=== PATIENT | female | born 1935 | race Caucasian/White ===

== ENCOUNTER 2018-05-11 00:47 | Inpatient (IN) | payer OTHER, MEDICARE ==
[~2018-05-11] VITALS: Ht 175.3 cm; Wt 114.9 kg
[~2018-05-11 00:47] MED LIST: AMLODIPINE BESYL5 M1 PO; ASPIRIN81 M4 PO; AUGMENTIN 500-1 EACH PO; CELEBREX200 MG PO; GLIPIZIDE ER5 M1 PO; GLIPIZIDE5 M2 PO; LASIX20 M1 PO; LISINOPRIL-HCT1 EAC2 PO; METFORMIN1000 MG PO; PIOGLITAZONE HC30 M1 PO; SIMVASTATIN20 MG PO; ZESTORETIC 10-1 EACH PO
--- NOTE | 2018-05-11 10:24 | Admission Core Measures ---
Acute Coronary Syndrome (CM) ACS Core Measures Acute Coronary Syndrome Diagnosis No Congestive Heart Failure (NEW) CHF Core Measures Congestive Heart Failure Diagnosis No Cerebrovascular Accident CVA Core Measures CVA/TIA Diagnosis No Venous Thromboembolism VTE Core Ana (View Protocol) VTE Risk Factors Surgery No Mechanical VTE Prophylaxis d/t N/A MechProphylax Ordered No VTE Pharm Prophylaxis d/t NA PharmProphylax ordered Problem List As ranked by this Provider includes Assessment & Plan 1. Unilateral primary osteoarthritis, right knee HOME MEDS Home Med List Amlodipine Besylate 5 MG TABLET 1 TAB PO DAILY BP (Reported) Aspirin (Aspirin*) 81 MG TAB.CHEW 1 TAB PO DAILY HEART HEALTH (Reported) Augmentin (Augmentin 500-125 Tablet) 1 EACH TABLET 1 TAB PO BID FINGER LACERATION Furosemide (Lasix) 20 MG TABLET 1 TAB PO DAILY BP (Reported) Glipizide (Glipizide ER) 5 MG TAB.ER.24 1 TAB PO DAILY DIABETES (Reported) Glipizide 5 MG TABLET 1 TAB PO BID DIABETES (Reported) Lisinopril/Hydrochlorothiazide (Lisinopril-Hctz 10-12.5 MG Tab) 1 EACH TABLET 1 TAB PO DAILY HEART (Reported) Lisinopril/Hydrochlorothiazide (Zestoretic 10-12.5 MG Tablet) 10 MG-12.5 MG TABLET 1 TAB PO DAILY BP (Reported) METFORMIN HCL (Metformin) 1,000 MG TABLET 1 TAB PO BID DIABETES (Reported) PIOGLITAZONE HCL (Pioglitazone HCl) 30 MG TABLET 1 LAL PO DAILY DIABETES ( Reported) Simvastatin (Zocor) 20 MG TAB 1 TAB PO QPM CHOLESTEROL (Reported)
--- NOTE | 2018-05-11 10:29 | Operative Report ---
Operative/Inv Procedure Report Surgery Date: 05/11/18 Name of Procedure: Right total knee arthroplasty Pre-Operative Diagnosis: Right knee primary osteoarthritis 2. Valgus deformity right knee Post-Operative Diagnosis: Same Estimated Blood Loss: 50ml to 100ml Surgeon/Shipping Support Clerk: Carlos HENAO,Vianey Leblanc PA Anesthesia: block Implants: [place] triathlon total knee system-size 4 femur, size 4 tibia, 11 mm cruciate retaining polyethylene, 31 patella Drains: None Specimens: Femoral, tibial, patellar bone, Microbiology: Urine Tourniquet: 74 minutes Complications: None Condition: Stable Operative Indication: Patient is an 82-year-old woman with a long history of gradually worsening right knee symptoms of osteoarthritis. She developed mechanical symptoms and increasing pain as well as deformity of the right knee. She had a significant valgus deformity of the knee and developed a flexion contracture. Due to these problems, she was treated conservatively initially but failed conservative treatment. She wished to proceed with total knee arthroplasty. Risks benefits and expectations of the procedure were discussed which included but were not limited to persistent knee pain, need for subsequent surgery, infection, DVT, injury of blood vessel or nerve and anesthesia risks. Patient is a higher risk of developing a postoperative peroneal nerve palsy due to her flexion contracture which was approximately 20 and her valgus deformity which was also approximately 20. She understood this and her family understood this. They wish to proceed with total knee arthroplasty Operative/Procedure Note Note: Patient was brought to the operating room and transferred to the room table. Once under appropriate anesthesia the right lower extremity was prepped and draped in standard fashion. Preoperative IV antibiotics were given prophylactically. Standard anterior incision was made for anticipated medial parapatellar approach to the knee. The tourniquet had been inflated to 300 ohms of pressure. Incision was taken down sharply to the underlying retinaculum. A medial retinacular approach with minimal extension of the quadricep tendon was used to enter the knee joint. Large osteophytes in all 3 compartments. These were excised to restore anatomy. Minimal dissection around the medial corner of the tibia was done to avoid and ligament imbalance due to her valgus deformity. Retractors are placed medial laterally remnants of the degenerative medial and lateral meniscal tissues were excised. Remnants of the ACL was excised. I then used a drill to enter the intramedullary canal for the intramedullary guide for the distal femoral cut. Cut was made at a 5 valgus angle. The femur was then sized to a size 4. Size 4 cutting block was pinned in place and the cuts were made while protecting soft tissues. I then turned my attention to the tibia. The used the external tibial alignment guide and pinned the cutting block in position for a neutral cut from medial to lateral and reproducing patient's posterior slope based on preoperative templating and intraoperative findings. Cut was made. The PCL had been slightly recessed and protected with a PCL retractor. Tibia was then sized to a size 4. A trial 4 tibia 4 femur and a 9 mm insert were applied and the knee was taken out to full extension. Slightly more lax on the lateral side during this trial. This would be balanced later on the case. I then measured and removed the appropriate thickness of the patella and re-stored the thickness of the patella with a 31 patella. A 3 lug holes were drilled as medially as possible to facilitate patellofemoral tracking. I then marked my rotation of the tibia and drilled the 2 lug holes of the femur. All instrument tissue was removed from the knee. I then finished preparation of tibia with the appropriate tibial punch. After balancing I was satisfied with the 11 mm insert which would be confirmed later on the case as well. Also patellofemoral tracking will be determined after the tourniquet was deflated. All its rotation was removed to the knee. Copious irrigation of the knee followed. I used the anterior chamfer bone to plug the distal femur to minimize postoperative hemarthrosis and swelling. Cement was being mixed on the back table. Once it was ready was applied to the dry clean bony surfaces of the tibia. The size 4 tibia was impacted in place and excess cement was removed with curettes. Cement was applied to dry clean bony surfaces of distal femur. And excess cement was removed with curettes. Polyethylene was inserted and the was taken out to full extension. Cement was applied to the dry clean bony surfaces of the patella. Size 31 patella was impacted in place and excess cement was removed with a knife. Once the cement hardened to the knee through range of motion. Excess cement was removed with osteotome. I trialed an 11 mm polyethylene. I was satisfied with the stability with this insert full extension. Good mid flexion stability and full flexion to gravity. I then removed the trial polyethylene copiously irrigated tibial tray. Shayan was no fragments of bone or cement or soft tissues within the tibial tray and then I impacted the definitive size 11 mm cruciate retaining polyethylene into place and the locking mechanism was confirmed. Irrigation followed. Tourniquet was deflated at 74 minutes. Hemostasis was obtained. I then copiously irrigated every level after every level of closure. The retinacular incision and extension to the quadricep was closed with interrupted #1 Vicryl sutures. Subcu tissues closed in 2 layers due to the depth of the wound with 2-0 Vicryl and skin was closed with a running 3-0 Vicryl suture with the knee in flexion. Proper dressings were applied and patient was awakened and taken to recovery room in good condition. No intraoperative complications. Blood loss was 100 cc Discharge Disposition: PACU
--- NOTE | 2018-05-11 10:31 | Patient Discharge Instructions ---
Discharge Instructions General Discharge Information You were seen/treated for: RIGHT KNEE OSTEOARTHRITIS You had these procedures: RIGHT TOTAL KNEE REPLACEMENT Watch for these problems: FEVER OVER 100.4 REDNESS AND SWELLING AROUND INCISION DRAINAGE FROM WOUND UNABLE TO BEAR WEIGHT ON RIGHT LEG No bath, but you may shower: Yes Other wound care: DAILY DRY DRESSING CHANGE KEEP INCISION CLEAN AND DRY Special Instructions: YOU WILL BE TAKING A NEW MEDICATION FOR ATRIAL FIBRILLATION CALLED ELIQUIS. THIS IS TO PREVENT BLOOD CLOTS FROM FORMING. PLEASE FOLLOW UP WITH YOUR PCP AND RECEIVING ROOM CLERK WITHIN 1-2 WEEKS. Diet Recommended Diet: Diabetic Activity Activity Limited to: Weight bear as tolerated (WITH ROLLING WALKER) Acute Coronary Syndrome Inclusion Criteria At DC or during hospital stay patient has or had the following: ACS DIAGNOSIS No Discharge Core Measures Meds if any: Prescribed or Continued at Discharge Meds if any: NOT Prescribed or Continued at Discharge Congestive Heart Failure Inclusion Criteria At DC or during hospital stay patient has or had the following: CHF DIAGNOSIS No Discharge Core Measures Meds if any: Prescribed or Continued at Discharge Meds if any: NOT Prescribed or Continued at Discharge Cerebrovascular accident Inclusion Criteria At DC or during hospital stay patient has or had the following: CVA/TIA Diagnosis No Discharge Core Measures Meds if any: Prescribed or Continued at Discharge Meds if any: NOT Prescribed or Continued at Discharge Venous thromboembolism Inclusion Criteria VTE Diagnosis No VTE Type NONE VTE Confirmed by (Test) NONE Discharge Core Measures - Per Current guidelines, there needs to be overlap - treatment for the first 5 days of Warfarin therapy. - If discharged on Warfarin prior to 5 days of - overlap therapy, the patient will need to be - assessed for post discharge needs including - *Post discharge parental anticoagulation - *Warfarin and/or parental anticoagulation education - *Follow up date to check INR post discharge At least 5 days overlap therapy as Inpatient No Meds if any: Prescribed or Continued at Discharge Note: Overlap Therapy is Warfarin and Anticoagulant Meds if any: NOT Prescribed or Continued at Discharge
--- NOTE | 2018-05-11 10:36 | Surgical Discharge Summary ---
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 Wallisian Review of Systems: PER [facility] Hospital Course Course Attending Physician: Carlos HENAO,[facility] Primary Care Physician: Tasha HENAO,[facility] Course: PT PRESENTED FOR ELECTIVE RIGHT TKA ON 05/11 WITH SPINAL, PT VOMITED MULTIPLE TIMES INTRA-OP AND IMMEDIATELY POST-OPERATIVELY. SHE WAS GIVEN INSTRUCTIONS TO FOLLOW-UP WITH DR GONZALEZ IN 2 WEEKS AND TO CALL SOONER WITH ANY QUESTIONS OR CONCERNS Allergies: Coded Allergies: lisinopril (Intermediate, TONGUE SWELLS 01/31/16) Significant Procedures: RIGHT TOTAL KNEE ARTHROPLASTY Disposition Summary Disposition Principal Diagnosis: RIGHT KNEE OA Additional Diagnosis: SP R TKA Discharge Disposition: home health services Discharge Instructions General Discharge Information Code Status: Full Code Patient's Diet: DIABETIC Patient's Activity: WBAT with rolling walker Follow-Up Instructions/Appts: to see Dr. Gonzalez in 2 weeks. Call sooner with any questions or concerns Medications at Discharge Discharge Medications: Continue taking these medications: METFORMIN HCL (Metformin) 1,000 MG TABLET 1 Tablet ORAL TWICE DAILY Qty = 180 Glipizide (Glipizide ER) 5 MG TAB.ER.24 1 Tablet ORAL DAILY Comments: NOT GIVEN Pioglitazone HCl (Pioglitazone HCl) 30 MG TABLET 1 Tablet ORAL DAILY Comments: NOT GIVEN Simvastatin (Zocor) 20 MG TAB 1 Tablet ORAL Every night Aspirin (Aspirin*) 81 MG TAB.CHEW 1 Tablet ORAL DAILY Comments: Last Taken: 05/19/18 Time: 8:00 AM Furosemide (Lasix) 20 MG TABLET 1 Tablet ORAL DAILY Comments: Last Taken: 05/19/18 Time: 8:00 AM Glipizide (Glipizide) 5 MG TABLET 1 Tablet ORAL TWICE DAILY Qty = 60 Comments: NOT GIVEN Start taking the following new medications: Apixaban (Eliquis) 5 MG TABLET 1 Tablet ORAL TWICE DAILY Qty = 60 No Refills Comments: Last Taken: 05/19/18 Time: 8:00 AM The following medications have been changed: Old: Amlodipine Besylate (Amlodipine Besylate) 5 MG TABLET 1 Tablet ORAL DAILY New: Amlodipine Besylate (Amlodipine Besylate) 10 MG TABLET 1 Tablet ORAL DAILY Qty = 30 Comments: Last Taken: 05/19/18 Time: 8:00 AM Copies To: Nadege Cordova MD
--- NOTE | 2018-05-11 12:45 | RADIOLOGY REPORT ---
EXAMINATION: XR PORTABLE CHEST CLINICAL INFORMATION: Low oxygen saturation. Difficult to arouse. COMPARISON: 01/31/2016 TECHNIQUE: Portable frontal view of the chest was obtained. FINDINGS: Lungs are hypoinflated. Pulmonary vessels are congested and subpleural septal lines are seen (mainly in the right lung), suggestive of interstitial edema. Small bilateral pleural effusions. The diaphragms are indistinct from the pleural effusions and likely associated compressive atelectasis. Cardiac silhouette is mildly enlarged. Atherosclerotic calcification of the aorta. The visualized bones are intact. IMPRESSION: Congestive heart failure with mild pulmonary edema and small pleural effusions.
--- NOTE | 2018-05-11 13:45 | History & Physical ---
Yamil Mera 05/11/18 1344: General Information and HPI MD Statement: I have seen and personally examined JOSE ALBRECHT and documented this H&P. The patient is a 82 year old F who presented with a patient stated chief complaint of [lethargy]. Source of Information: family, EMS Exam Limitations: unable to give history, clinical condition History of Present Illness: 82-year-old woman from home medical history of COPD not on home oxygen, non- insulin-dependent diabetes mellitus, hypertension, hyperlipidemia, severe osteoarthritis, postop day 0 status post total knee arthroplasty. Intra operatively she had continuous vomitting and apparently desaturated to 70s when she had spinal anesthesia. She was given propafol, duramorph and scopalamine. Found to be lethargic postoperatively. Collateral history obtained from daughter Renae and Cheryl. Prior to surgery she was at baseline which is IADLs other that the fact since the past 2 months she had severe right knee pain. During that time she was starting on PO lasix for bilateral lower extremity swelling by her PCP Dr. Briceno. Allergies/Medications Allergies: Coded Allergies: lisinopril (Intermediate, TONGUE SWELLS 01/31/16) Home Med list Amlodipine Besylate 5 MG TABLET 1 TAB PO DAILY BP (Reported) Aspirin (Aspirin*) 81 MG TAB.CHEW 1 TAB PO DAILY HEART HEALTH (Reported) Augmentin (Augmentin 500-125 Tablet) 1 EACH TABLET 1 TAB PO BID FINGER LACERATION Furosemide (Lasix) 20 MG TABLET 1 TAB PO DAILY BP (Reported) Glipizide (Glipizide ER) 5 MG TAB.ER.24 1 TAB PO DAILY DIABETES (Reported) Glipizide 5 MG TABLET 1 TAB PO BID DIABETES (Reported) METFORMIN HCL (Metformin) 1,000 MG TABLET 1 TAB PO BID DIABETES (Reported) PIOGLITAZONE HCL (Pioglitazone HCl) 30 MG TABLET 1 LAL PO DAILY DIABETES ( Reported) Simvastatin (Zocor) 20 MG TAB 1 TAB PO QPM CHOLESTEROL (Reported) Compliance With Home Meds: GOOD Past History Medical History Neurological: NONE EENT: NONE Cardiovascular: NONE Respiratory: COPD Gastrointestinal: NONE Hepatic: NONE Renal: NONE Musculoskeletal: NONE Psychiatric: NONE Endocrine: diabetes Blood Disorders: NONE Cancer(s): NONE 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 Home Who Do You Live With? child Smoking Status: Unknown If Ever Smoked Functional Ability ADLs Independent: dressing, eating, toileting, bathing. Ambulation: independent IADLs Independent: shopping, housework, finances, food prep, telephone, transportation , medication admin. Review of Systems Review of Systems Constitutional: Denies: see HPI. Exam & Diagnostic Data Last 24 Hrs of Vital Signs/I&O Vital Signs Date Time Temp Pulse Resp B/P B/P Pulse O2 O2 Flow FiO2 Mean Ox Delivery Rate 05/11 1442 88 94 05/11 1223 89 94 Physical Exam General Appearance Moderate Distress, lethargic, pale Skin No Significant Lesion HEENT pinpoint sluggishly reactive Cardiovascular Regular Rate, Normal S1, Normal S2 Lungs decreased breath sounds Abdomen distended Extremities dressing over right knee Diagnostic Data EKG Results NSR, rate 88 QTC 470, low voltages as seen in previous EKG CXR Results SERVICE DATE: 05/11/18 EXAM TYPE: RAD - XRY-PORTABLE CHEST XRAY FINDINGS: Lungs are hypoinflated. Pulmonary vessels are congested and subpleural septal lines are seen (mainly in the right lung), suggestive of interstitial edema. Small bilateral pleural effusions. The diaphragms are indistinct from the pleural effusions and likely associated compressive atelectasis. Cardiac silhouette is mildly enlarged. Atherosclerotic calcification of the aorta. The visualized bones are intact. IMPRESSION: Congestive heart failure with mild pulmonary edema and small pleural effusions. Assessment/Plan Assessment: 82-year-old woman from home, medical history of COPD not on home oxygen, non- insulin-dependent diabetes mellitus, hypertension, hyperlipidemia, severe osteoarthritis, postop day 0 status post total knee arthroplasty, intraoperative vomiting and desaturation, noted to be lethargic postoperatively. Was given 1 dose of flumazenil and 2 doses of 0.4 Narcan with minimal response. ABG showed Hypercarbic respiratory failure (7.03/128/80/33). CXR significant for mild pulmonary susana Problem list: acute hypercarbic respiratory failure pulmonary edema s/p total right knee replacement Hypertension NIDDM COPD Acute hypercarbic respiratory failure multifactorial secondary to respiratory depression (opiods), aspiration admit to ICU, vitals per protolcol keep NPO upon arrival in ICU she had another episode of bilious vomitting, had to be placed on non-rebreather till nausea and vomiting under control. will repeat ABG at 4pm and assess need for intubation. This was discussed with the respiratory therapist will start Narcan drip empirically start unasyn for aspiration obtain stat cbc/ICU bundle and blood cultures hold all PO meds for now. Pulmonary edema she does not carry a diagnosis of CHF will trend trop and EKG, ProBNP will consider ECHO if BNP elevated Strict I/Os give one time IV 40 lasix Right total knee replacement management per Surgery, appreciate recommendations DM accucheck, NPO sliding scale hold home med of oral hypoglycemics HTN hold her PO meds for now DVT PPx subcu heparin NPO full code UPDATE: 4:15pm unable to place pt on bipap, ABG showing worsening respiratory acidosis pt was intubated. As Ranked By This Provider Problem List: 1. Acute hypercapnic respiratory failure 2. Pulmonary edema Core Measures/Misc (05/11) Acute Coronary Syndrome ACS Diagnosis: No Congestive Heart Failure Congestive Heart Failure Diagnosis No Cerebrovascular Accident CVA/TIA Diagnosis: No VTE (View Protocol) VTE Risk Factors Surgery No Mechanical VTE Prophylaxis d/t Physical Contraindication No VTE Pharm Prophylaxis d/t NA PharmProphylax ordered Sepsis (View protocol) Sepsis Present: No If YES complete Sepsis Event Note If YES complete Sepsis Event Note Mariam HENAO,Yesenia Shelton 05/11/18 1417: Core Measures/Misc (05/11) Sepsis (View protocol) If YES complete Sepsis Event Note If YES complete Sepsis Event Note Attending MD Review Statement Attending Statement Attending MD Statement: examined this patient, discuss w/resident/PA/DISTRIBUTION COORDINATOR, agreed w/resident/PA/DISTRIBUTION COORDINATOR, reviewed EMR data (avail), reviewed images, amended to note Attending Assessment/Plan: The patient is an 82 year old female with a past medical history significant for COPD (not on O2), diabetes mellitus, HN, HLD and severe osteoarthritis. I was called to see the patient for ICU admission following a total knee arthroplasty, with postoperative respiratory failure. Intraoperatively, the patient had continuous vomiting and desaturated into the 70s, noting she had an epidural for anesthesia administration. The patient received propofol, Duramorph and scopolamine. Because the patient was lethargic, an ABG was done that showed severe respiratory acidosis. An ABG showed pulmonary edema. The patient was placed on BiPAP, given flumazenil and Narcan. She was also given Lasix 40 mg IV assessment and treatment. She has been pancultured and started on empiric IV Unasyn. Repeat laboratory studies were done and reviewed. After monitoring the patient in the ICU, despite antiemetics, she continued to have significant vomiting. She could not tolerate BiPAP therapy due to the risk of aspiration. After discussing this with anesthesia, the patient was subsequently intubated to correct her worsening respiratory acidosis. The patient is currently intubated, and sedated on propofol. She is following commands. She is moving all extremities without focality. Her pupils are equal and reactive. She has high peak airway pressures which is likely due to obesity. At the present time, the patient will continue on empiric antibiotic therapy, will follow-up cultures, we will check routine laboratory studies again overnight including a lactic acid, we will perform serial troponins, consult cardiology if there are any issues, and continue negative fluid balance. We will continue with antiemetics. DVT prophylaxis will be given at all times. The patient is critically ill noting she may have aspirated and have significant sequela including aspiration pneumonia, pneumonitis or ARDS. I discussed the patient's case with the housestaff and asked him to contact me should the patient's condition change. I also updated the patient's family in the ICU.
--- NOTE | 2018-05-11 14:21 | Admission Certification ---
Admission Certification Certification Statement - As attending physician, I certify that at the time of - admission, based on clinical presentation, severity of - symptoms, need for further diagnostic testing and - therapeutic interventions, and risk of adverse outcomes - without in-hospital treatment, in my clinical assessment, - this patient requires an acute hospital stay for a minimum - of two nights or longer. I have also considered psychsocial - factors such as support system, advanced age, financial - issues, cognitive issues, and failed out-patient treatments, - past re-admission history, safety of patient, and lack of - compliance as applicable. Specific rationale supporting this admission is: Acute hypercarbic respiratory failure due to anesthesia and opiate administration. Possible aspiration pneumonia in the setting of vomiting. The patient will need admission and treatment for respiratory failure.
[2018-05-11 15:15] VITALS: BP 120/70
[2018-05-11 16:00] VITALS: BP 96/58
--- NOTE | 2018-05-11 16:18 | PN- Orthopedic ---
Subjective Subjective: Post op check Post op course has been complicated by the patient being obtunded in the PACU and respiratory depression requiring a nonrebreather to maintain appropriate saturation. Per anesthesia, pt was given duramorph post op. It was also noted that pt vomited several times intraop. She was not under general anesthesia and was awake througout surgery. There was no active evidence of aspiration. Post op per the PACU nursing staff, she was communicative. Then about 45 minutes after arriving seemed to become more difficult to arouse. Anesthesia was closely monitoring her in the PACU. She was also given narcan and flumazenil CXR revealed CHF with mild pulmonary edema and small bilateral effusions She was given a dose of lasix IV ABG at that time 7.03/128/80/33/89% She was transferred to the ICU and managed by critical care - Her sats improved after a breathing treatment and she was able to be maintained on a partial rebreather. Follow up ABG 7.18/81/69/30/88% Follow up CXR looked iimproved At the time of exam - she is still difficult to awaken Currently labs are being drawn including ICU panel/ABG/troponin/blood cultures Anesthesia feels that this is a reaction to duramorph Objective Vital Signs and I&Os Vital Signs Date Time Temp Pulse Resp B/P B/P Pulse O2 O2 Flow FiO2 Mean Ox Delivery Rate 05/11 1442 88 94 05/11 1223 89 94 Physical Exam: Difficult to arouse Stable on a partial rebreather Chest: decreased at bases bilaterally, No rales/rhonchi/wheezes Abd: soft, positive bowel sounds Ext: warm, good cap refill Wd: dressed, dry [place]: good urine output - 300cc in past 2 hours, clear/yellow Assessment/Plan Assessment/Plan 82yo female s/p R TKR with intraop vomiting and post op obtundation ICU management fu labs - including ABG Pt has difficult access and may need a central line Close monitoring for possible need for intubation - per critical care management NGT if she vomits again Core Measures Venous Thromboembolism VTE Risk Factors Surgery No Mechanical VTE Prophylaxis d/t N/A MechProphylax Ordered No VTE Pharm Prophylaxis d/t NA PharmProphylax ordered
[2018-05-11 17:06] LABS: ABSOLUTE BASOPHIL COUNT 0 /CUMM (0.0-0.2); ABSOLUTE EOSINOPHIL COUNT 0 /CUMM (0.0-0.7); ABSOLUTE GRANULOCYTE CT 8.4 /CUMM (1.4-6.5); ABSOLUTE LYMPH COUNT 0.4 /CUMM (1.2-3.4); ABSOLUTE MONOCYTE COUNT 0.2 /CUMM (0.10-0.60); BASOPHIL % 0 % (0.0-2.0); EOSINOPHIL % 0.1 % (0-5); HEMATOCRIT 36.3 % (37-47); MEAN CORPUSCULAR HGB 29.7 PG (27.0-31.0); MEAN CORPUSCULAR HGB CONC 32.1 G/DL (33.0-37.0); MEAN CORPUSCULAR VOLUME 92.4 FL (81.0-99.0); MEAN PLATELET VOLUME 10.1 FL (7.4-10.4); PLATELET COUNT 184 /CUMM (130-400); RBC DISTRIBUTION WIDTH 14.4 % (11.5-14.5); RED BLOOD CELL CT 3.93 /CUMM (4.20-5.40); WHITE BLOOD CELL COUNT 9.1 /CUMM (4.8-10.8)
--- NOTE | 2018-05-11 17:14 | RADIOLOGY REPORT ---
EXAMINATION: XR PORTABLE CHEST CLINICAL INFORMATION: Intubation. NG tube placement. COMPARISON: Chest x-ray 05/11/2018 TECHNIQUE: Portable frontal view of the chest was obtained. 4:43 PM FINDINGS: Endotracheal tube has been placed. The catheter is oriented toward the right mainstem bronchus and is approximately 1 cm above the jacques. The endotracheal tube can be pulled back approximately 2 cm. Nasogastric tube passes below the diaphragm. The tip is not visualized, below margin of the film. Lung volume is low. There is persistent mild central pulmonary vascular prominence but this is accentuated by the low inspiratory effort. No focal consolidation. No pleural effusion or pneumothorax. IMPRESSION: 1. Endotracheal tube catheter 1 cm above jacques. Catheter can be pulled back about 2 cm. 2. Nasogastric tube passes below the diaphragm. 3. Low lung volume. There is persistent mild central pulmonary vascular congestion but this is accentuated by the low inspiratory effort. This critical result was discussed with Dr. Snowden on 05/11/2018, 5:10 PM and it was ascertained that the content and urgency of the report was understood at the time of direct communication.
[2018-05-11 17:17] LABS: PT 11.6 SEC (9.4-12.5); PTT 26 SEC (25-37)
[2018-05-12] VITALS: BP 116/60
[2018-05-12 04:57] LABS: ABSOLUTE BASOPHIL COUNT 0 /CUMM (0.0-0.2); ABSOLUTE EOSINOPHIL COUNT 0 /CUMM (0.0-0.7); ABSOLUTE GRANULOCYTE CT 6.1 /CUMM (1.4-6.5); ABSOLUTE LYMPH COUNT 0.5 /CUMM (1.2-3.4); ABSOLUTE MONOCYTE COUNT 0.5 /CUMM (0.10-0.60); BASOPHIL % 0.1 % (0.0-2.0); EOSINOPHIL % 0.1 % (0-5); GRANULOCYTE % 85.9 % (42.2-75.2); HEMATOCRIT 32.7 % (37-47); MEAN CORPUSCULAR HGB 30.3 PG (27.0-31.0); MEAN CORPUSCULAR HGB CONC 33.2 G/DL (33.0-37.0); MEAN CORPUSCULAR VOLUME 91.4 FL (81.0-99.0); MEAN PLATELET VOLUME 10.2 FL (7.4-10.4); PLATELET COUNT 168 /CUMM (130-400); RBC DISTRIBUTION WIDTH 14.4 % (11.5-14.5); RED BLOOD CELL CT 3.58 /CUMM (4.20-5.40); WHITE BLOOD CELL COUNT 7.1 /CUMM (4.8-10.8)
--- NOTE | 2018-05-12 07:48 | PN- Resident CRCU ---
See Addendum Subjective HPI/CRCU Issues: Patient was admitted to the ICU yesterday postoperatively for respiratory failure initially placed on BiPAP and subsequently intubated for worsening respiratory acidosis and persistent vomiting. Overnight she did well and this morning she is fully awake and answering questions. She does not have any pain at this time but is asking to be extubated. Afebrile overnight. Objective Vital Signs & I&O Last 8 Hrs of Vitals and I&O: Vital Signs Date Time Temp Pulse Resp B/P B/P Pulse O2 O2 Flow FiO2 Mean Ox Delivery Rate 05/12 0545 40 05/12 0302 40 05/12 0120 40 05/12 0000 96 Ventilator 40% 05/12 0000 97.3 76 18 116/60 96 Ventilator 40% 05/11 2204 40 05/11 2000 95 Ventilator 40% 05/11 1930 40 05/11 1905 Ventilator 45% 05/11 1630 45 05/11 1600 97.0 83 12 96/58 97 Part 60% ReBreather 05/11 1600 100 Ventilator 45% 05/11 1530 98 Part 60% ReBreather 05/11 1515 97.1 85 16 120/70 100 Non 100% ReBreather 05/11 1442 88 94 05/11 1223 89 94 Intake & Output 05/12 0800 05/12 0000 05/11 1600 Intake Total 127 563 Output Total 190 800 Balance -63 -237 Intake, IV 127 563 Intake, Oral 0 Number 0 Bowel Movements Output, 100 Gastric Drainage Output, Urine 190 700 Patient 115.411 kg 115.411 kg Weight Weight Bed scale Bed scale Measurement Method Intake & Output 05/12 0800 Intake Total 127 Output Total 190 Balance -63 Intake, IV 127 Output, Urine 190 Exam General Appearance: well developed/nourished, alert, awake, comfortable, intubated Respiratory: no respiratory distress, lungs clear Cardiovascular: regular rate/rhythm Gastrointestinal: normal bowel sounds, soft, non-tender Extremities: R leg wrapped Cranial Nerves: normal hearing, PERRL Current Medications: Current Medications Sig/Olivier Start time Last Medication Dose Route Stop Time Status Admin Acetaminophen 1,000 MG Q8 05/11 1400 DC 05/12 IV 05/12 0601 0726 Acetaminophen 650 MG ONCE 05/11 0000 DC PO 05/11 2359 Albuterol Sulfate 3 ML EVERY 4 HRS/AWAKE 05/11 2000 AC 05/11 INH 2014 Amlodipine Besylate 5 MG DAILY 05/12 0900 CAN PO Ampicillin Sodium/ 3,000 MG Q6H 05/11 2200 AC 05/12 Sulbactam Sodium IV 0412 Sodium Chloride 100 ML Ampicillin Sodium/ 3,000 MG Q6 05/11 1434 DC 05/11 Sulbactam Sodium IV 1608 Sodium Chloride 100 ML Atorvastatin Calcium 10 MG 1700 05/11 1700 CAN PO Celecoxib 200 MG DAILY 05/12 0900 CAN PO Celecoxib 400 MG ONCE 05/11 0000 DC PO 05/11 2359 Dexamethasone 10 MG ONCE 05/11 0000 DC IV 05/11 2359 Dextrose/Sodium 1,000 ML .[id number] 05/11 1330 DC Chloride IV Docusate Sodium 100 MG BID 05/11 2100 CAN PO Famotidine 0 .STK-MED ONE 05/11 0949 DC IV Flumazenil 0 .STK-MED ONE 05/11 1152 DC IV Furosemide 20 MG DAILY 05/12 0900 CAN PO Furosemide 20 MG ONCE ONE 05/11 1515 DC 05/11 IV 05/11 1516 1525 Furosemide 0 .STK-MED ONE 05/11 1507 DC .ROUTE Furosemide 0 .STK-MED ONE 05/11 1409 DC IV Furosemide 40 MG ONCE ONE 05/11 1400 CAN IV 05/11 1401 Gabapentin 300 MG ONCE 05/11 0000 DC PO 05/11 2359 Heparin Sodium 5,000 UNIT Q8 05/11 1427 DC 05/11 (Porcine) [place] 05/11 2201 2134 Hydrochlorothiazide 12.5 MG DAILY 05/12 0900 CAN PO Insulin Human Regular 0 Q6 05/11 1800 AC 05/11 SC 2346 Insulin Human Regular 0 TIDAC/HS 05/11 1200 DC SC Lisinopril 10 MG DAILY 05/12 0900 CAN PO Magnesium Sulfate 1 GM ONCE ONE 05/11 1745 DC 05/11 Dextrose/Water 100 ML IV 05/11 2144 2033 Metformin HCl 1,000 MG BID 05/11 2100 CAN PO Morphine Sulfate 2 MG Q2P PRN 05/11 1330 DC IV Naloxone HCl 4 MG Q24H 05/11 1445 DC 05/11 Dextrose/Water 1,000 ML IV 1515 Naloxone HCl 0 .STK-MED ONE 05/11 1222 DC .ROUTE Naloxone HCl 0 .STK-MED ONE 05/11 1205 DC .ROUTE Non-Formulary 0 SEE ADMIN CRITERIA 05/11 1645 CAN Medication ANY Ondansetron HCl 4 MG Q6P PRN 05/11 1330 DC 05/11 IV 1525 Oxycodone HCl 5 MG Q4H PRN 05/11 1330 DC PO Oxycodone HCl 10 MG ONCE 05/11 0000 DC PO 05/11 2359 Pantoprazole Sodium 40 MG DAILY 05/11 1801 AC 05/11 IV 1928 Polyethylene Glycol 17 GM DAILY 05/12 0900 CAN PO Propofol 1,000 MG Q24H 05/11 1930 DC 05/11 N/A 1 UNIT IV 1928 Propofol 0 .STK-MED ONE 05/11 1629 DC IV Scopolamine HBr 1 PAT ONCE 05/11 0000 DC TOP 05/11 2359 Trimethobenzamide HCl 200 MG 4 TIMES/DAY PRN 05/11 1545 AC IM Vancomycin HCl 1,000 MG Q12 05/11 2100 CAN Sodium Chloride 250 ML IV 05/11 2159 Warfarin Sodium 5 MG COUMADIN 1700 ONE 05/11 1700 CAN PO 05/11 1701 Impression/Plan Impression/Problem List Impression: Ms. Rosen is an 82-year-old female with past medical history of COPD, diabetes mellitus, hypertension, hyperlipidemia, and severe osteoarthritis postop day 1 elective right total knee arthroplasty with postoperative course complicated by hypercarbic respiratory failure secondary to oversedation initially treated with BiPAP and subsequently intubated for worsening respiratory acidosis and persistent vomiting. Her ABG has subsequently improved markedly and she is alert and awake this morning. Problem list: 1. Acute hypercarbic respiratory failure secondary to oversedation 2. Status post elective right knee total arthroplasty 3. Congestive heart failure Plan: Neurology: -Patient alert and oriented on very low-dose propofol, discontinuing propofol -Pain is well controlled -Acetaminophen IV every 8 hours -Per surgery, ketorolac 50 mg every 6 hours as needed severe pain, watch creatinine Respiratory: -Patient was intubated status post hypercarbic respiratory failure secondary to oversedation -ABG subsequently markedly improved, now normal -Weaning trial today, possible extubation -Ampicillin/sulbactam for prevention of aspiration pneumonia -Follow-up chest x-ray this morning -Nebulizers as needed Cardiology: -Patient has history of congestive heart failure followed by Dr. Pastor -Chest x-ray yesterday showed pulmonary edema and she received 40 mg of Lasix -She is -237 mL -Consider further diuresis depending on clinical course, 20mg furosemide IV today -Blood pressure normal, adding amlodipine and simvastatin -Cardiology consult -Strict I's and Os, lucas in place GI: -Patient had persistent nausea and vomiting likely secondary to the anesthesia -She is no longer vomiting -Continue antiemetics -Currently n.p.o., will likely be extubated today so no need for tube feeds or TPN Endocrinology: -Patient has history of type 2 diabetes mellitus, [id number] -Holding home diabetes medications -N.p.o. insulin sliding scale Orthopedic: -Patient postop day 1 total knee arthroplasty -Typically anticoagulation postoperatively would be with a direct oral anticoagulant or enoxaparin -Surgery is opting to anticoagulate with heparin subcu while intubated and then we will start warfarin 7.5 mg daily while following INR DVT prophylaxis with heparin N.p.o. Full code Problem List: 1. Pulmonary edema 2. Acute hypercapnic respiratory failure Pain Ratin Tomorrow's Labs & Rationales: cbc icu Plan DVT/Prophylaxis: mechanical, pharmacological Code Status: Full Code
[2018-05-12 08:00] VITALS: BP 118/70
--- NOTE | 2018-05-12 08:15 | RADIOLOGY REPORT ---
EXAMINATION: XR PORTABLE CHEST CLINICAL INFORMATION: Lethargy and hypoxia. COMPARISON: 05/11/2018 TECHNIQUE: Portable frontal view of the chest was obtained. FINDINGS: Endotracheal tube has been repositioned, its tip now located approximately 6 cm above the jacques. Enteric tube is difficult to visualize; it appears to extend below the diaphragm and into the stomach. Mildly improved inflation of both lungs. Cardiomegaly with mild prominence of central pulmonary vessels. The previous noted interstitial edema has resolved, and the pleural effusions have either significantly decreased or resolved. No pneumothorax or other acute interval change. IMPRESSION: - Interval improvement. Previously noted mild interstitial edema has resolved. - Endotracheal tube is approximately 6 cm above the jacques.
--- NOTE | 2018-05-12 08:34 | PN- Student ---
Emperatriz Valdes 05/12/18 0821: Subjective Subjective: Pt remains intubated but able to respond to questions. Has some pain in her right knee but otherwise has no complaints. Objective Objective: Vitals: See EMR General: Elderly female, intubated, alert, responsive, NAD. Cardio: Regular rate and rhythm. No appreciable murmurs, rubs or gallops. Pulm: Diffuse wheezes bilaterally. Abdomen: normoactive bowel sounds. soft, non-tender, non-distended. Extremities: Gross motor and sensation intact and equal bilaterally. Right knee dressing clean dry and intact with ice pack in place. Faint palpable DP pulse in right leg. 4/5 dorsi and plantar flexion in right foot 5/5 in the left. Calves soft and non-tender bilaterally. ALPs in place. Results Results: Laboratory Tests 05/12/18 0330: Anion Gap 9, Estimated GFR 48 L, Glucose 122 H, Calcium 8.2 L, Phosphorus 3.4 , Magnesium 1.7, Total Bilirubin 0.3, AST 16, ALT 19, Troponin I < 0.01, Albumin 3.3 L, CBC w Diff MAN DIFF ORDERED, RBC 3.58 L, MCV 91.4, MCH 30.3, MCHC 33.2, RDW 14.4, MPV 10.2, Gran % 85.9 H, Lymphocytes % 7.3 L, Monocytes % 6.6, Eosinophils % 0.1, Basophils % 0.1, Absolute Granulocytes 6.1, Segmented Neutrophils 85 H, Absolute Lymphocytes 0.5 L, Lymphocytes 9 L, Monocytes 6, Absolute Monocytes 0.5, Absolute Eosinophils 0, Absolute Basophils 0, Nucleated RBCs 1 H, Platelet Estimate ADEQUATE, Polychromasia 1+, Basophilic Stippling SLIGHT, Ovalocytes FEW, Fld Total RBCs Counted 100 05/11/182224: pH 7.45, pCO2 40, pO2 97, HCO3 27, ABG O2 Sat (Measured) 97.0, P-50 (Temp Corrected) N, Carboxyhemoglobin 0.5 L, O2 Concentration % 40%, Temperature 97.4 , Respiration Rate 18, O2 Delivery Method ESPRIT, Vent Mode AC, Expiratory Pressure 5, Tidal Volume 500, Phlebotomy Draw Site RIGHT RADIAL 05/11/185: Anion Gap 7, Estimated GFR 60, Glucose 222 H, Lactic Acid 0.9, Calcium 8.0 L, Phosphorus 2.9, Magnesium 1.6, Total Bilirubin 0.5, AST 17, ALT 30, Troponin I < 0.01, Albumin 3.3 L 05/11/18 194: Troponin I Cancelled 05/11/18 1810: pH 7.44, pCO2 40, pO2 103 H, HCO3 27, ABG O2 Sat (Measured) 97.0, P-50 (Temp Corrected) N, Carboxyhemoglobin 0.6 L, O2 Concentration % 45%, Temperature 97.1 , Respiration Rate 26, O2 Delivery Method ESPRIT, Vent Mode AC, Expiratory Pressure 5, Tidal Volume 500, Phlebotomy Draw Site RIGHT BRACHIAL 05/11/18 1623: PT 11.6, INR 1.06, APTT 26, CBC w Diff NO MAN DIFF REQ, RBC 3.93 L, MCV 92.4, MCH 29.7, MCHC 32.1 L, RDW 14.4, MPV 10.1, Gran % 93.0 H, Lymphocytes % 4.9 L , Monocytes % 2.0, Eosinophils % 0.1, Basophils % 0, Absolute Granulocytes 8.4 H, Absolute Lymphocytes 0.4 L, Absolute Monocytes 0.2, Absolute Eosinophils 0, Absolute Basophils 0 05/11/18 1555: pH 7.12 *L, pCO2 96 *H, pO2 161 H, HCO3 30 H, ABG O2 Sat (Measured) 97.0, P-50 (Temp Corrected) N, Carboxyhemoglobin 1.4 L, O2 Concentration % 60%, Temperature 97.1, O2 Delivery Method PRB, Phlebotomy Draw Site LEFT RADIAL 05/11/18 1545: Hni-Z-Rfismjwyaeb Pept 2590 H 05/11/18 1545: Anion Gap 8, Estimated GFR 60, Glucose 362 H, Calcium 7.9 L, Phosphorus 5.8 H , Magnesium 1.4 L, Total Bilirubin 0.4, AST 20, ALT 20, Troponin I < 0.01, Albumin 3.8 05/11/18 1359: Magnesium Cancelled, CBC w Diff Cancelled, WBC Cancelled, RBC Cancelled, Hgb Cancelled, Hct Cancelled, MCV Cancelled, MCH Cancelled, MCHC Cancelled, RDW Cancelled, Plt Count Cancelled, MPV Cancelled 05/11/18 1352: pH 7.18 *L, pCO2 81 *H, pO2 69 L, HCO3 30 H, ABG O2 Sat (Measured) 88.0 L, P- 50 (Temp Corrected) N, Carboxyhemoglobin 1.8, O2 Concentration % 40%, Respiration Rate 26, O2 Delivery Method BIPAP, Vent Mode ST, Expiratory Pressure 6, Inspiratory Pressure 22, Phlebotomy Draw Site LEFT RADIAL 05/11/18 1138: pH 7.03 *L, pCO2 128 *H, pO2 80, HCO3 33 H, ABG O2 Sat (Measured) 89.0 L, P-50 (Temp Corrected) N, Carboxyhemoglobin 1.8, O2 Concentration % 2.5L, Temperature 98.0, O2 Delivery Method N/C, Phlebotomy Draw Site LEFT RADIAL Microbiology 05/11 1630 UPPER RESP: Surveillance Culture - RECD 05/11 1630 LOWER RESP: Respiratory Culture - RES 05/11 1630 LOWER RESP: Gram Stain - RES 05/11 1630 GI: Surveillance Culture - RECD 05/11 1545 BLOOD: Blood Culture - RECD 05/11 1545 BLOOD: Blood Culture - RECD 05/11 0740 URINE ROUT: Urine Culture - RECD Assessment/Plan Assessment: 82 year old F POD#1 s/p total right knee replacement. PMH includes COPD, diabetes mellitus, hypertension, hyperlipidemia, and osteoarthritis. Pt intubated post-operatively secondary to respiratory acidosis and lethargy. Pt alert and responsive today and ABGs are improving. Plan: Pt under ICU care. Continue to monitor and control pain. ALPs and eliquis for DVT ppx. [place] in place. Extubated as ICU team sees fit. Follow up w morning labs and CXR. Discuss with ICU team and Dr Kelly. Keith CARRANZA,Jesus Manuel 05/12/18 1022: Subjective Subjective: agree with above possible extubation today cont hep sq/alps for dvt prophylaxis until extubated start coumadin 7.5mg po for dvt prophylaxis after extubation and oob per tka protocol then
[2018-05-12 12:00] VITALS: BP 146/62
--- NOTE | 2018-05-12 13:16 | Cons- Cardiology ---
General Information and HPI Consulting Request Date of Consult: 05/12/18 Requested By: Yesenia Becerra MD Reason for Consult: Congestive heart failure History of Present Illness: The patient is an 82-year-old female with history of diabetes mellitus, hypertension, hyperlipidemia, and COPD who is status post elective right knee total arthroplasty yesterday. She was admitted to the intensive care unit for postoperative respiratory failure. Intraoperatively she had continuous vomiting and desaturated to the 70s. She had evidence of pulmonary edema and respiratory acidosis. She was intubated and admitted to the intensive care unit. She was started on empiric antibiotic therapy for possible aspiration pneumonia. She is awake on the ventilator. She denies any chest pain. She complains of right knee pain at the surgical site. She was treated with IV Lasix for pulmonary edema, and repeat chest x-ray shows improvement in the interstitial edema. Allergies/Medications Allergies: Coded Allergies: lisinopril (Intermediate, TONGUE SWELLS 01/31/16) Home Med List: Amlodipine Besylate 5 MG TABLET 1 TAB PO DAILY BP (Reported) Aspirin (Aspirin*) 81 MG TAB.CHEW 1 TAB PO DAILY HEART HEALTH (Reported) Augmentin (Augmentin 500-125 Tablet) 1 EACH TABLET 1 TAB PO BID FINGER LACERATION Furosemide (Lasix) 20 MG TABLET 1 TAB PO DAILY BP (Reported) Glipizide (Glipizide ER) 5 MG TAB.ER.24 1 TAB PO DAILY DIABETES (Reported) Glipizide 5 MG TABLET 1 TAB PO BID DIABETES (Reported) METFORMIN HCL (Metformin) 1,000 MG TABLET 1 TAB PO BID DIABETES (Reported) PIOGLITAZONE HCL (Pioglitazone HCl) 30 MG TABLET 1 LAL PO DAILY DIABETES ( Reported) Simvastatin (Zocor) 20 MG TAB 1 TAB PO QPM CHOLESTEROL (Reported) Current Medications: Current Medications Sig/Olivier Start time Last Medication Dose Route Stop Time Status Admin Acetaminophen 1,000 MG Q8 05/12 0820 AC 05/12 N/A 1 UNIT IV 1432 Acetaminophen 1,000 MG Q8 05/11 1400 DC 05/12 IV 05/12 0601 0726 Albuterol Sulfate 3 ML EVERY 4 HRS/AWAKE 05/12 1623 AC 05/12 INH 1623 Albuterol Sulfate 3 ML Q4 05/12 1000 DC INH Albuterol Sulfate 3 ML EVERY 4 HRS/AWAKE 05/11 2000 DC 05/12 INH 0745 Ampicillin Sodium/ 3,000 MG Q6H 05/11 2200 AC 05/12 Sulbactam Sodium IV 1558 Sodium Chloride 100 ML Chlorhexidine 30 ML BID 05/12 2100 AC Gluconate PO Enoxaparin Sodium 30 MG BID 05/12 2100 AC SC Furosemide 20 MG ONCE ONE 05/12 0830 DC 05/12 IV 05/12 0831 0940 Heparin Sodium 5,000 UNIT Q8 05/12 1400 CAN (Porcine) SC Heparin Sodium 5,000 UNIT Q8H 05/12 0819 DC (Porcine) SC Heparin Sodium 5,000 UNIT Q8 05/11 1427 DC 05/11 (Porcine) SC 05/11 2201 2134 Insulin Human Regular 0 .STK-MED ONE 05/12 0748 DC .ROUTE Insulin Human Regular 0 Q6 05/11 1800 AC 05/12 SC 1432 Ketorolac 15 MG Q6-PRN PRN 05/12 0830 AC 05/12 Tromethamine IV 1221 Lorazepam 1 MG Q6-PRN PRN 05/12 1345 AC IV Lorazepam 2 MG Q6-PRN PRN 05/12 1215 DC 05/12 IV 1221 Magnesium Sulfate 1 GM ONCE ONE 05/11 1745 DC 05/11 Dextrose/Water 100 ML IV 05/11 2144 2033 Non-Formulary 0 SEE ADMIN CRITERIA 05/11 1645 CAN Medication ANY Pantoprazole Sodium 40 MG DAILY 05/11 1801 AC 05/12 IV 0812 Propofol 1,000 MG Q24H 05/11 1930 DC 05/11 N/A 1 UNIT IV 1928 Trimethobenzamide HCl 200 MG 4 TIMES/DAY PRN 05/11 1545 IM Review of Systems Review of Systems: Review of systems is not obtainable because the patient sent Past History Medical History Blood Transfusion Hx: No Neurological: NONE EENT: NONE Cardiovascular: hypertension, hyperlipidemia Respiratory: COPD Gastrointestinal: NONE Hepatic: NONE Renal: NONE Musculoskeletal: osteoarthritis Psychiatric: NONE Endocrine: diabetes Blood Disorders: NONE Cancer(s): NONE 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 reviewed/non-contributory Psychosocial History Where Do You Live? Home Who Do You Live With? child Services at Home: None Smoking Status: Former Smoker Functional Ability ADLs Independent: dressing, eating, toileting, bathing. Ambulation: independent IADLs Independent: shopping, housework, finances, food prep, telephone, transportation , medication admin. Exam & Diagnostic Data Vital Signs and I&O Vital Signs Date Time Temp Pulse Resp B/P B/P Pulse O2 O2 Flow FiO2 Mean Ox Delivery Rate 05/12 1630 35 05/12 1600 95 Ventilator 35% 05/12 1600 97.5 81 18 116/50 95 Ventilator 35% 05/12 1405 35 05/12 1204 40 05/12 1200 99 Ventilator 35% 05/12 1200 97.5 98 18 146/62 99 Ventilator 35% 05/12 0800 100 Ventilator 40% 05/12 0800 97.5 85 20 118/70 100 Ventilator 40% 05/12 0752 40 05/12 0545 40 05/12 0302 40 05/12 0120 40 05/12 0000 96 Ventilator 40% 05/12 0000 97.3 76 18 116/60 96 Ventilator 40% 05/11 2204 40 05/11 2000 95 Ventilator 40% 05/11 1930 40 05/11 1905 Ventilator 45% Intake & Output 05/12 1600 05/12 0800 05/12 0000 05/11 1600 05/11 0800 05/11 0000 Intake Total 280 127 563 Output Total 850 190 800 Balance -570 -63 -237 Intake, IV 280 127 563 Intake, Oral 0 Number 0 0 Bowel Movements Output, 150 100 Gastric Drainage Output, Urine 700 190 700 Patient 254 lb 254 lb Weight Weight Bed scale Bed scale Measurement Method Physical Exam: Gen: The patient is awake on the ventilator, and is in no acute distress HEENT: Normal nose, ears, and oropharynx. Pupils equal bilaterally. Conjunctiva normal. Neck: Supple with no JVD, no masses, and no thyromegaly Lungs: Decreased breath sounds on the ventral with normal respiratory effort Heart: RRR, S1, S2, no murmurs. No peripheral edema, 2+ pulses in the lower extremities bilaterally Abdomen: Soft, nontender, no masses. No hepatomegaly. No splenomegaly Extremities: No clubbing or cyanosis. Normal muscle strength in the upper and lower extremities Skin: Normal skin turgor with no skin ulcers or lesions noted. Neuro: Cranial nerves intact. Sensation intact Psych: Alert and oriented x 3 with appropriate affect Labs/Emanuel Results: Laboratory Tests 05/12 05/12 1130 0330 Blood Gas pH (7.35 - 7.45 PH) 7.34 L pCO2 (35 - 45 TORR) 57 H pO2 (80 - 100 TORR) 108 H HCO3 (21 - 28 MEQ/L) 29.6 H ABG O2 Sat (Measured) (>96.0 %) 97.0 Carboxyhemoglobin (1.5 - 5.0 %) 0.3 L O2 Concentration % 40% O2 Delivery Method T-PIECE Chemistry Sodium (137 - 145 mmol/L) 136 L Potassium (3.5 - 5.1 mmol/L) 4.1 Chloride (98 - 107 mmol/L) 97 L Carbon Dioxide (22 - 30 mmol/L) 30 Anion Gap (5 - 16) 9 BUN (7 - 17 mg/dL) 23 H Creatinine (0.5 - 1.0 mg/dL) 1.1 H Estimated GFR (>60 ml/min) 48 L Glucose (65 - 99 mg/dL) 122 H Calcium (8.4 - 10.2 mg/dL) 8.2 L Phosphorus (2.5 - 4.5 mg/dL) 3.4 Magnesium (1.6 - 2.3 mg/dL) 1.7 Total Bilirubin (0.2 - 1.3 mg/dL) 0.3 AST (14 - 36 U/L) 16 ALT (9 - 52 U/L) 19 Troponin I (< 0.11 ng/ml) < 0.01 Albumin (3.5 - 5.0 g/dL) 3.3 L Hematology CBC w Diff MAN DIFF ORDERED WBC (4.8 - 10.8 /CUMM) 7.1 RBC (4.20 - 5.40 /CUMM) 3.58 L Hgb (12.0 - 16.0 G/DL) 10.9 L Hct (37 - 47 %) 32.7 L MCV (81.0 - 99.0 FL) 91.4 MCH (27.0 - 31.0 PG) 30.3 MCHC (33.0 - 37.0 G/DL) 33.2 RDW (11.5 - 14.5 %) 14.4 Plt Count (130 - 400 /CUMM) 168 MPV (7.4 - 10.4 FL) 10.2 Gran % (42.2 - 75.2 %) 85.9 H Lymphocytes % (20.5 - 51.1 %) 7.3 L Monocytes % (1.7 - 9.3 %) 6.6 Eosinophils % (0 - 5 %) 0.1 Basophils % (0.0 - 2.0 %) 0.1 Absolute Granulocytes (1.4 - 6.5 /CUMM) 6.1 Segmented Neutrophils (42.2 - 75.2 %) 85 H Absolute Lymphocytes (1.2 - 3.4 /CUMM) 0.5 L Lymphocytes (20.5 - 51.1 %) 9 L Monocytes (1.7 - 9.3 %) 6 Absolute Monocytes (0.10 - 0.60 /CUMM) 0.5 Absolute Eosinophils (0.0 - 0.7 /CUMM) 0 Absolute Basophils (0.0 - 0.2 /CUMM) 0 Nucleated RBCs (0.0 - 0.0 /100WBC) 1 H Platelet Estimate (ADEQUATE) ADEQUATE Polychromasia 1+ Basophilic Stippling SLIGHT Ovalocytes FEW Miscellaneous Phlebotomy Draw Site LEFT RADIAL Other Body Source Fld Total RBCs Counted (%) 100 05/11 05/11 05/11 7003 1721 1217 Blood Gas pH (7.35 - 7.45 PH) 7.45 pCO2 (35 - 45 TORR) 40 pO2 (80 - 100 TORR) 97 HCO3 (21 - 28 MEQ/L) 27 ABG O2 Sat (Measured) (>96.0 %) 97.0 P-50 (Temp Corrected) N Carboxyhemoglobin (1.5 - 5.0 %) 0.5 L O2 Concentration % 40% Temperature (97.0 - 100.0 FARH) 97.4 Respiration Rate (BPM) 18 O2 Delivery Method ESPRIT Vent Mode AC Expiratory Pressure (CMH2O/P) 5 Tidal Volume (CC) 500 Chemistry Sodium (137 - 145 mmol/L) 133 L Potassium (3.5 - 5.1 mmol/L) 4.2 Chloride (98 - 107 mmol/L) 97 L Carbon Dioxide (22 - 30 mmol/L) 30 Anion Gap (5 - 16) 7 BUN (7 - 17 mg/dL) 20 H Creatinine (0.5 - 1.0 mg/dL) 0.9 Estimated GFR (>60 ml/min) 60 Glucose (65 - 99 mg/dL) 222 H Lactic Acid (0.7 - 2.1 mmol/L) 0.9 Calcium (8.4 - 10.2 mg/dL) 8.0 L Phosphorus (2.5 - 4.5 mg/dL) 2.9 Magnesium (1.6 - 2.3 mg/dL) 1.6 Total Bilirubin (0.2 - 1.3 mg/dL) 0.5 AST (14 - 36 U/L) 17 ALT (9 - 52 U/L) 30 Troponin I (< 0.11 ng/ml) < 0.01 Cancelled Albumin (3.5 - 5.0 g/dL) 3.3 L Miscellaneous Phlebotomy Draw Site RIGHT RADIAL 05/11 05/11 1810 1623 Blood Gas pH (7.35 - 7.45 PH) 7.44 pCO2 (35 - 45 TORR) 40 pO2 (80 - 100 TORR) 103 H HCO3 (21 - 28 MEQ/L) 27 ABG O2 Sat (Measured) (>96.0 %) 97.0 P-50 (Temp Corrected) N Carboxyhemoglobin (1.5 - 5.0 %) 0.6 L O2 Concentration % 45% Temperature (97.0 - 100.0 FARH) 97.1 Respiration Rate (BPM) 26 O2 Delivery Method ESPRIT Vent Mode AC Expiratory Pressure (CMH2O/P) 5 Tidal Volume (CC) 500 Coagulation PT (9.4 - 12.5 SEC) 11.6 INR (0.90 - 1.19) 1.06 APTT (25 - 37 SEC) 26 Hematology CBC w Diff NO MAN DIFF REQ WBC (4.8 - 10.8 /CUMM) 9.1 RBC (4.20 - 5.40 /CUMM) 3.93 L Hgb (12.0 - 16.0 G/DL) 11.7 L Hct (37 - 47 %) 36.3 L MCV (81.0 - 99.0 FL) 92.4 MCH (27.0 - 31.0 PG) 29.7 MCHC (33.0 - 37.0 G/DL) 32.1 L RDW (11.5 - 14.5 %) 14.4 Plt Count (130 - 400 /CUMM) 184 MPV (7.4 - 10.4 FL) 10.1 Gran % (42.2 - 75.2 %) 93.0 H Lymphocytes % (20.5 - 51.1 %) 4.9 L Monocytes % (1.7 - 9.3 %) 2.0 Eosinophils % (0 - 5 %) 0.1 Basophils % (0.0 - 2.0 %) 0 Absolute Granulocytes (1.4 - 6.5 /CUMM) 8.4 H Absolute Lymphocytes (1.2 - 3.4 /CUMM) 0.4 L Absolute Monocytes (0.10 - 0.60 /CUMM) 0.2 Absolute Eosinophils (0.0 - 0.7 /CUMM) 0 Absolute Basophils (0.0 - 0.2 /CUMM) 0 Miscellaneous Phlebotomy Draw Site RIGHT BRACHIAL 05/11 05/11 05/11 05/11 1555 1545 1545 1359 Blood Gas pH (7.35 - 7.45 PH) 7.12 *L pCO2 (35 - 45 TORR) 96 *H pO2 (80 - 100 TORR) 161 H HCO3 (21 - 28 MEQ/L) 30 H ABG O2 Sat (Measured) (>96.0 %) 97.0 P-50 (Temp Corrected) N Carboxyhemoglobin (1.5 - 5.0 %) 1.4 L O2 Concentration % 60% Temperature (97.0 - 100.0 FARH) 97.1 O2 Delivery Method PRB Chemistry Sodium (137 - 145 mmol/L) 133 L Potassium (3.5 - 5.1 mmol/L) 5.1 Chloride (98 - 107 mmol/L) 95 L Carbon Dioxide (22 - 30 mmol/L) 31 H Anion Gap (5 - 16) 8 BUN (7 - 17 mg/dL) 18 H Creatinine (0.5 - 1.0 mg/dL) 0.9 Estimated GFR (>60 ml/min) 60 Glucose (65 - 99 mg/dL) 362 H Calcium (8.4 - 10.2 mg/dL) 7.9 L Phosphorus (2.5 - 4.5 mg/dL) 5.8 H Magnesium (1.6 - 2.3 mg/dL) 1.4 L Cancelled Total Bilirubin (0.2 - 1.3 mg/dL) 0.4 AST (14 - 36 U/L) 20 ALT (9 - 52 U/L) 20 Troponin I (< 0.11 ng/ml) < 0.01 [id number] Pept (<125 pg/mL) 2590 H Albumin (3.5 - 5.0 g/dL) 3.8 Hematology CBC w Diff Cancelled WBC Cancelled RBC Cancelled Hgb Cancelled Hct Cancelled MCV Cancelled MCH Cancelled MCHC Cancelled RDW Cancelled Plt Count Cancelled MPV Cancelled Miscellaneous Phlebotomy Draw Site LEFT RADIAL 05/11 05/11 1352 1138 Blood Gas pH (7.35 - 7.45 PH) 7.18 *L 7.03 *L pCO2 (35 - 45 TORR) 81 *H 128 *H pO2 (80 - 100 TORR) 69 L 80 HCO3 (21 - 28 MEQ/L) 30 H 33 H ABG O2 Sat (Measured) (>96.0 %) 88.0 L 89.0 L P-50 (Temp Corrected) N N Carboxyhemoglobin (1.5 - 5.0 %) 1.8 1.8 O2 Concentration % 40% 2.5L Temperature (97.0 - 100.0 FARH) 98.0 Respiration Rate (BPM) 26 O2 Delivery Method BIPAP N/C Vent Mode ST Expiratory Pressure (CM H2O P) 6 Inspiratory Pressure (CM H2O P) 22 Miscellaneous Phlebotomy Draw Site LEFT RADIAL LEFT RADIAL Diagnostic Data EKG Results EKG tracings independently reviewed, and reveals normal sinus rhythm at 72, normal EKG CXR Results Chest x-ray 05/12/18: - Interval improvement. Previously noted mild interstitial edema has resolved. - Endotracheal tube is approximately 6 cm above the jacques. Assessment/Plan Assessment/Plan The patient is an 82-year-old female with history of diabetes mellitus, hypertension, and COPD who is status post total knee replacement. She developed postoperative respiratory failure and pulmonary edema. The pulmonary edema has improved with IV Lasix, however she remains intubated. Recommendations: * Would reassess volume status tomorrow morning, and treat with initial doses of IV Lasix if needed depending on respiratory status and chest x-ray results. * Recommend obtaining an echocardiogram * With the patient is able to take p.o. medications, would restart her usual oral dose of Lasix which is 20 mg daily * Monitor input and output Consult Acknowledgment - Thank you for your consult request.
[2018-05-12 16:00] VITALS: BP 116/50
--- NOTE | 2018-05-12 18:10 | PN- Orthopedic ---
Surgical Brief Attending Note Brief Attending Note: Patient responding to questions. She is accompanied by family in her room. Still intubated. There was a attempt to wean off earlier today according to the nurse and resident. Wound dressings clean and dry. Calf is soft and nontender Neuro intact distally. Status post right total knee arthroplasty and correction of severe valgus deformity and flexion contracture Patient had respiratory issues and mental status issues and recovery room. Patient was sent to ICU to monitor respiratory status and ultimately had to be intubated. Patient does have underlying COPD and most likely has abnormal baseline pulmonary function. Await safe extubation. Discussed with nurse and resident in ICU. Physical therapy to range the knee and mobilize patient as soon as it is medically safe. Rehabilitation/PT Anticoagulation was to be Coumadin but due to her po status, switch to Lovenox today the resident will write this order today.
[2018-05-13] VITALS: BP 146/70
[2018-05-13 05:29] LABS: ABSOLUTE BASOPHIL COUNT 0 /CUMM (0.0-0.2); ABSOLUTE EOSINOPHIL COUNT 0.1 /CUMM (0.0-0.7); ABSOLUTE GRANULOCYTE CT 4.4 /CUMM (1.4-6.5); ABSOLUTE LYMPH COUNT 0.7 /CUMM (1.2-3.4); ABSOLUTE MONOCYTE COUNT 0.5 /CUMM (0.10-0.60); BASOPHIL % 0.2 % (0.0-2.0); EOSINOPHIL % 1.2 % (0-5); GRANULOCYTE % 77.2 % (42.2-75.2); HEMATOCRIT 30.9 % (37-47); MEAN CORPUSCULAR HGB 30.3 PG (27.0-31.0); MEAN CORPUSCULAR HGB CONC 33.5 G/DL (33.0-37.0); MEAN CORPUSCULAR VOLUME 90.6 FL (81.0-99.0); MEAN PLATELET VOLUME 9.6 FL (7.4-10.4); PLATELET COUNT 156 /CUMM (130-400); RBC DISTRIBUTION WIDTH 14.3 % (11.5-14.5); RED BLOOD CELL CT 3.41 /CUMM (4.20-5.40); WHITE BLOOD CELL COUNT 5.7 /CUMM (4.8-10.8)
[2018-05-13 08:00] VITALS: BP 128/64
--- NOTE | 2018-05-13 08:12 | PN- Orthopedic ---
Subjective Subjective: Patient is intubated and responsive to yes no questios. She denies pain. She reports doing leg exersises in bed with nursing. Weaning trials attempted yesterday. Echo ordered for today. Objective Vital Signs and I&Os Vital Signs Date Time Temp Pulse Resp B/P B/P Pulse O2 O2 Flow FiO2 Mean Ox Delivery Rate 05/13 618 97.3 05/13 0615 35 05/13 0400 98 Ventilator 35% 05/13 0340 35 05/13 0115 35 05/13 0000 97.6 91 20 146/70 96 Ventilator 35% 05/13 0000 96 Ventilator 35% 05/12 2235 97.6 05/12 2233 35 05/12 2136 98.0 05/12 2000 95 Ventilator 35% 05/12 1930 35 05/12 1630 35 05/12 1600 95 Ventilator 35% 05/12 1600 97.5 81 18 116/50 95 Ventilator 35% 05/12 1405 35 05/12 1204 40 05/12 1200 99 Ventilator 35% 05/12 1200 97.5 98 18 146/62 99 Ventilator 35% 05/12 0800 100 Ventilator 40% 05/12 0800 97.5 85 20 118/70 100 Ventilator 40% Intake & Output 05/13 0800 05/13 0000 05/12 1600 05/12 0800 05/12 0000 05/11 1600 Intake Total 580 532 280 127 563 Output Total 350 550 850 190 800 Balance 230 -18 -570 -63 -237 Intake, IV 580 532 280 127 563 Intake, Oral 0 Intake, Other 0 Number 0 0 0 0 Bowel Movements Output, 150 350 150 100 Gastric Drainage Output, Urine 200 200 700 190 700 Patient 254 lb 254 lb Weight Weight Bed scale Bed scale Measurement Method Physical Exam: Gen - intubated and awake accompained by family HEENT - OG tube in place with bilious output Cardiac - S1S2 noted Ext - RLE dressing c/d/i, incision with steris in place, mild edema, compartment soft, nontender, motor and sensory intact, R foot with 1+ edema Current Medications: Current Medications Sig/Olivier Start time Last Medication Dose Route Stop Time Status Admin Acetaminophen 1,000 MG Q8 05/12 0820 AC 05/13 N/A 1 UNIT IV 0618 Albuterol Sulfate 3 ML EVERY 4 HRS/AWAKE 05/12 1623 05/13 INH 0616 Albuterol Sulfate 3 ML Q4 05/12 1000 DC INH Albuterol Sulfate 3 ML EVERY 4 HRS/AWAKE 05/11 2000 DC 05/12 INH 0745 Ampicillin Sodium/ 3,000 MG Q6H 05/11 2200 AC 05/13 Sulbactam Sodium IV 0430 Sodium Chloride 100 ML Chlorhexidine 30 ML BID 05/12 2100 AC 05/12 Gluconate PO 2134 Dextrose/Sodium 1,000 ML Q20H 05/12 1830 DC 05/12 Chloride IV 1840 Enoxaparin Sodium 30 MG BID 05/12 2100 AC 05/12 SC 2136 Furosemide 20 MG DAILY 05/13 0900 AC PO Furosemide 20 MG ONCE ONE 05/12 0830 DC 05/12 IV 05/12 0831 0940 Heparin Sodium 5,000 UNIT Q8 05/12 1400 CAN (Porcine) SC Heparin Sodium 5,000 UNIT Q8H 05/12 0819 DC (Porcine) SC Insulin Human Regular 0 Q6 05/11 1800 AC 05/13 SC 0633 Ketorolac 15 MG Q6-PRN PRN 05/12 0830 AC 05/12 Tromethamine IV 1221 Lorazepam 1 MG Q6-PRN PRN 05/12 1345 AC 05/13 IV 0017 Lorazepam 2 MG Q6-PRN PRN 05/12 1215 DC 05/12 IV 1221 Pantoprazole Sodium 40 MG DAILY 05/11 1801 AC 05/12 IV 0812 Trimethobenzamide HCl 200 MG 4 TIMES/DAY PRN 05/11 1545 AC IM Results Last 48 Hours of Labs: Laboratory Tests 05/13 05/12 0425 1130 Blood Gas pH (7.35 - 7.45 PH) 7.34 L pCO2 (35 - 45 TORR) 57 H pO2 (80 - 100 TORR) 108 H HCO3 (21 - 28 MEQ/L) 29.6 H ABG O2 Sat (Measured) (>96.0 %) 97.0 Carboxyhemoglobin (1.5 - 5.0 %) 0.3 L O2 Concentration % 40% O2 Delivery Method T-PIECE Chemistry Sodium (137 - 145 mmol/L) 140 Potassium (3.5 - 5.1 mmol/L) 3.6 Chloride (98 - 107 mmol/L) 99 Carbon Dioxide (22 - 30 mmol/L) 31 H Anion Gap (5 - 16) 9 BUN (7 - 17 mg/dL) 24 H Creatinine (0.5 - 1.0 mg/dL) 1.1 H Estimated GFR (>60 ml/min) 48 L Glucose (65 - 99 mg/dL) 156 H Calcium (8.4 - 10.2 mg/dL) 8.1 L Phosphorus (2.5 - 4.5 mg/dL) 3.3 Magnesium (1.6 - 2.3 mg/dL) 1.7 Total Bilirubin (0.2 - 1.3 mg/dL) 0.4 AST (14 - 36 U/L) 16 ALT (9 - 52 U/L) 25 Albumin (3.5 - 5.0 g/dL) 3.2 L Hematology CBC w Diff NO MAN DIFF REQ WBC (4.8 - 10.8 /CUMM) 5.7 RBC (4.20 - 5.40 /CUMM) 3.41 L Hgb (12.0 - 16.0 G/DL) 10.3 L Hct (37 - 47 %) 30.9 L MCV (81.0 - 99.0 FL) 90.6 MCH (27.0 - 31.0 PG) 30.3 MCHC (33.0 - 37.0 G/DL) 33.5 RDW (11.5 - 14.5 %) 14.3 Plt Count (130 - 400 /CUMM) 156 MPV (7.4 - 10.4 FL) 9.6 Gran % (42.2 - 75.2 %) 77.2 H Lymphocytes % (20.5 - 51.1 %) 11.9 L Monocytes % (1.7 - 9.3 %) 9.5 H Eosinophils % (0 - 5 %) 1.2 Basophils % (0.0 - 2.0 %) 0.2 Absolute Granulocytes (1.4 - 6.5 /CUMM) 4.4 Absolute Lymphocytes (1.2 - 3.4 /CUMM) 0.7 L Absolute Monocytes (0.10 - 0.60 /CUMM) 0.5 Absolute Eosinophils (0.0 - 0.7 /CUMM) 0.1 Absolute Basophils (0.0 - 0.2 /CUMM) 0 Miscellaneous Phlebotomy Draw Site LEFT RADIAL 05/12 05/11 3553 3398 Blood Gas pH (7.35 - 7.45 PH) 7.45 pCO2 (35 - 45 TORR) 40 pO2 (80 - 100 TORR) 97 HCO3 (21 - 28 MEQ/L) 27 ABG O2 Sat (Measured) (>96.0 %) 97.0 P-50 (Temp Corrected) N Carboxyhemoglobin (1.5 - 5.0 %) 0.5 L O2 Concentration % 40% Temperature (97.0 - 100.0 FARH) 97.4 Respiration Rate (BPM) 18 O2 Delivery Method ESPRIT Vent Mode AC Expiratory Pressure (CMH2O/P) 5 Tidal Volume (CC) 500 Chemistry Sodium (137 - 145 mmol/L) 136 L Potassium (3.5 - 5.1 mmol/L) 4.1 Chloride (98 - 107 mmol/L) 97 L Carbon Dioxide (22 - 30 mmol/L) 30 Anion Gap (5 - 16) 9 BUN (7 - 17 mg/dL) 23 H Creatinine (0.5 - 1.0 mg/dL) 1.1 H Estimated GFR (>60 ml/min) 48 L Glucose (65 - 99 mg/dL) 122 H Calcium (8.4 - 10.2 mg/dL) 8.2 L Phosphorus (2.5 - 4.5 mg/dL) 3.4 Magnesium (1.6 - 2.3 mg/dL) 1.7 Total Bilirubin (0.2 - 1.3 mg/dL) 0.3 AST (14 - 36 U/L) 16 ALT (9 - 52 U/L) 19 Troponin I (< 0.11 ng/ml) < 0.01 Albumin (3.5 - 5.0 g/dL) 3.3 L Hematology CBC w Diff MAN DIFF ORDERED WBC (4.8 - 10.8 /CUMM) 7.1 RBC (4.20 - 5.40 /CUMM) 3.58 L Hgb (12.0 - 16.0 G/DL) 10.9 L Hct (37 - 47 %) 32.7 L MCV (81.0 - 99.0 FL) 91.4 MCH (27.0 - 31.0 PG) 30.3 MCHC (33.0 - 37.0 G/DL) 33.2 RDW (11.5 - 14.5 %) 14.4 Plt Count (130 - 400 /CUMM) 168 MPV (7.4 - 10.4 FL) 10.2 Gran % (42.2 - 75.2 %) 85.9 H Lymphocytes % (20.5 - 51.1 %) 7.3 L Monocytes % (1.7 - 9.3 %) 6.6 Eosinophils % (0 - 5 %) 0.1 Basophils % (0.0 - 2.0 %) 0.1 Absolute Granulocytes (1.4 - 6.5 /CUMM) 6.1 Segmented Neutrophils (42.2 - 75.2 %) 85 H Absolute Lymphocytes (1.2 - 3.4 /CUMM) 0.5 L Lymphocytes (20.5 - 51.1 %) 9 L Monocytes (1.7 - 9.3 %) 6 Absolute Monocytes (0.10 - 0.60 /CUMM) 0.5 Absolute Eosinophils (0.0 - 0.7 /CUMM) 0 Absolute Basophils (0.0 - 0.2 /CUMM) 0 Nucleated RBCs (0.0 - 0.0 /100WBC) 1 H Platelet Estimate (ADEQUATE) ADEQUATE Polychromasia 1+ Basophilic Stippling SLIGHT Ovalocytes FEW Miscellaneous Phlebotomy Draw Site RIGHT RADIAL Other Body Source Fld Total RBCs Counted (%) 100 05/11 194 1810 Blood Gas pH (7.35 - 7.45 PH) 7.44 pCO2 (35 - 45 TORR) 40 pO2 (80 - 100 TORR) 103 H HCO3 (21 - 28 MEQ/L) 27 ABG O2 Sat (Measured) (>96.0 %) 97.0 P-50 (Temp Corrected) N Carboxyhemoglobin (1.5 - 5.0 %) 0.6 L O2 Concentration % 45% Temperature (97.0 - 100.0 FARH) 97.1 Respiration Rate (BPM) 26 O2 Delivery Method ESPRIT Vent Mode AC Expiratory Pressure (CMH2O/P) 5 Tidal Volume (CC) 500 Chemistry Sodium (137 - 145 mmol/L) 133 L Potassium (3.5 - 5.1 mmol/L) 4.2 Chloride (98 - 107 mmol/L) 97 L Carbon Dioxide (22 - 30 mmol/L) 30 Anion Gap (5 - 16) 7 BUN (7 - 17 mg/dL) 20 H Creatinine (0.5 - 1.0 mg/dL) 0.9 Estimated GFR (>60 ml/min) 60 Glucose (65 - 99 mg/dL) 222 H Lactic Acid (0.7 - 2.1 mmol/L) 0.9 Calcium (8.4 - 10.2 mg/dL) 8.0 L Phosphorus (2.5 - 4.5 mg/dL) 2.9 Magnesium (1.6 - 2.3 mg/dL) 1.6 Total Bilirubin (0.2 - 1.3 mg/dL) 0.5 AST (14 - 36 U/L) 17 ALT (9 - 52 U/L) 30 Troponin I (< 0.11 ng/ml) < 0.01 Cancelled Albumin (3.5 - 5.0 g/dL) 3.3 L Miscellaneous Phlebotomy Draw Site RIGHT BRACHIAL 05/11 05/11 05/11 1623 1555 1545 Blood Gas pH (7.35 - 7.45 PH) 7.12 *L pCO2 (35 - 45 TORR) 96 *H pO2 (80 - 100 TORR) 161 H HCO3 (21 - 28 MEQ/L) 30 H ABG O2 Sat (Measured) (>96.0 %) 97.0 P-50 (Temp Corrected) N Carboxyhemoglobin (1.5 - 5.0 %) 1.4 L O2 Concentration % 60% Temperature (97.0 - 100.0 FARH) 97.1 O2 Delivery Method PRB Chemistry [id number] Pept (<125 pg/mL) 2590 H Coagulation PT (9.4 - 12.5 SEC) 11.6 INR (0.90 - 1.19) 1.06 APTT (25 - 37 SEC) 26 Hematology CBC w Diff NO MAN DIFF REQ WBC (4.8 - 10.8 /CUMM) 9.1 RBC (4.20 - 5.40 /CUMM) 3.93 L Hgb (12.0 - 16.0 G/DL) 11.7 L Hct (37 - 47 %) 36.3 L MCV (81.0 - 99.0 FL) 92.4 MCH (27.0 - 31.0 PG) 29.7 MCHC (33.0 - 37.0 G/DL) 32.1 L RDW (11.5 - 14.5 %) 14.4 Plt Count (130 - 400 /CUMM) 184 MPV (7.4 - 10.4 FL) 10.1 Gran % (42.2 - 75.2 %) 93.0 H Lymphocytes % (20.5 - 51.1 %) 4.9 L Monocytes % (1.7 - 9.3 %) 2.0 Eosinophils % (0 - 5 %) 0.1 Basophils % (0.0 - 2.0 %) 0 Absolute Granulocytes (1.4 - 6.5 /CUMM) 8.4 H Absolute Lymphocytes (1.2 - 3.4 /CUMM) 0.4 L Absolute Monocytes (0.10 - 0.60 /CUMM) 0.2 Absolute Eosinophils (0.0 - 0.7 /CUMM) 0 Absolute Basophils (0.0 - 0.2 /CUMM) 0 Miscellaneous Phlebotomy Draw Site LEFT RADIAL 05/11 05/11 05/11 05/11 1545 1359 1352 1138 Blood Gas pH (7.35 - 7.45 PH) 7.18 *L 7.03 *L pCO2 (35 - 45 TORR) 81 *H 128 *H pO2 (80 - 100 TORR) 69 L 80 HCO3 (21 - 28 MEQ/L) 30 H 33 H ABG O2 Sat (Measured) (>96.0 %) 88.0 L 89.0 L P-50 (Temp Corrected) N N Carboxyhemoglobin (1.5 - 5.0 %) 1.8 1.8 O2 Concentration % 40% 2.5L Temperature (97.0 - 100.0 FARH) 98.0 Respiration Rate (BPM) 26 O2 Delivery Method BIPAP N/C Vent Mode ST Expiratory Pressure (CM H2O P) 6 Inspiratory Pressure (CM H2O P) 22 Chemistry Sodium (137 - 145 mmol/L) 133 L Potassium (3.5 - 5.1 mmol/L) 5.1 Chloride (98 - 107 mmol/L) 95 L Carbon Dioxide (22 - 30 mmol/L) 31 H Anion Gap (5 - 16) 8 BUN (7 - 17 mg/dL) 18 H Creatinine (0.5 - 1.0 mg/dL) 0.9 Estimated GFR (>60 ml/min) 60 Glucose (65 - 99 mg/dL) 362 H Calcium (8.4 - 10.2 mg/dL) 7.9 L Phosphorus (2.5 - 4.5 mg/dL) 5.8 H Magnesium (1.6 - 2.3 mg/dL) 1.4 L Cancelled Total Bilirubin (0.2 - 1.3 mg/dL) 0.4 AST (14 - 36 U/L) 20 ALT (9 - 52 U/L) 20 Troponin I (< 0.11 ng/ml) < 0.01 Albumin (3.5 - 5.0 g/dL) 3.8 Hematology CBC w Diff Cancelled WBC Cancelled RBC Cancelled Hgb Cancelled Hct Cancelled MCV Cancelled MCH Cancelled MCHC Cancelled RDW Cancelled Plt Count Cancelled MPV Cancelled Miscellaneous Phlebotomy Draw Site LEFT RADIAL LEFT RADIAL Assessment/Plan Assessment/Plan 82 F POD 2 s/p R total knee arthroplasty and correction of severe valgus deformity and flexion contracture, complicated bynrespiratory failure and pulmonary edemanrequiring reintubation postoperatively Cont supportive care Keep npo on IVF IV abx - unasyn per ccu DVT ppx alps, lovenox 30 bid Cont dry daily dressing changes F/u CXR, echo PT to range the knee and mobilize patient as soon as it is medically safe Appreciate ccu/cardiology input Will d/w Dr. Almaguer Core Measures Venous Thromboembolism VTE Risk Factors Surgery No Mechanical VTE Prophylaxis d/t Physical Contraindication No VTE Pharm Prophylaxis d/t NA PharmProphylax ordered
--- NOTE | 2018-05-13 08:41 | PN- Resident CRCU ---
Subjective HPI/CRCU Issues: Patient was uncomfortable overnight as she is alert and intubated. She is expressing a strong desire to have the tube removed. She denies any pain this morning. Objective Vital Signs & I&O Last 8 Hrs of Vitals and I&O: Vital Signs Date Time Temp Pulse Resp B/P B/P Pulse O2 O2 Flow FiO2 Mean Ox Delivery Rate 05/13 0618 97.3 05/13 0615 35 05/13 0400 98 Ventilator 35% 05/13 0340 35 05/13 0115 35 05/13 0000 97.6 91 20 146/70 96 Ventilator 35% 05/13 0000 96 Ventilator 35% 05/12 2235 97.6 05/12 2233 35 05/12 2136 98.0 05/12 2000 95 Ventilator 35% 05/12 1930 35 05/12 1630 35 05/12 1600 95 Ventilator 35% 05/12 1600 97.5 81 18 116/50 95 Ventilator 35% 05/12 1405 35 05/12 1204 40 05/12 1200 99 Ventilator 35% 05/12 1200 97.5 98 18 146/62 99 Ventilator 35% Intake & Output 05/13 1600 05/13 0800 05/13 0000 Intake Total 580 532 Output Total 350 550 Balance 230 -18 Intake, IV 580 532 Intake, Other 0 Number 0 0 Bowel Movements Output, 150 350 Gastric Drainage Output, Urine 200 200 Patient 114.957 kg Weight Intake & Output 05/13 1600 Intake Total Output Total Balance Patient 114.957 kg Weight Exam General Appearance: well developed/nourished, no apparent distress, alert, awake , anxious, intubated Respiratory: wheezing Cardiovascular: regular rate/rhythm Gastrointestinal: normal bowel sounds, soft, non-tender Extremities: no edema Weaning Parameters NIF: 50 Minute Volume: 3.85 Resp rate: 13 Vt: 296 Heart Rate: 99 Weaning Schedule Start Time: 1840 Minute Volume: 5.17 Resp Rate: 19 Vt: 285 Heart Rate: 103 End Time: 2040 Minute Volume: 7.45 Resp Rate: 32 Vt: 405 Heart Rate: 100 Start Time: 1105 Heart Rate: 97 End Time: 1155 Heart Rate: 97 Current Medications: Current Medications Sig/Olivier Start time Last Medication Dose Route Stop Time Status Admin Acetaminophen 1,000 MG Q8 05/12 0820 AC 05/13 N/A 1 UNIT IV 0618 Albuterol Sulfate 3 ML EVERY 4 HRS/AWAKE 05/12 1623 AC 05/13 INH 0616 Albuterol Sulfate 3 ML Q4 05/12 1000 DC INH Ampicillin Sodium/ 3,000 MG Q6H 05/11 2200 AC 05/13 Sulbactam Sodium IV 0430 Sodium Chloride 100 ML Chlorhexidine 30 ML BID 05/12 2100 AC 05/12 Gluconate PO 2134 Dextrose/Sodium 1,000 ML Q20H 05/12 1830 DC 05/12 Chloride IV 1840 Enoxaparin Sodium 30 MG BID 05/12 2100 AC 05/12 SC 2136 Furosemide 20 MG DAILY 05/13 0900 AC PO Heparin Sodium 5,000 UNIT Q8 05/12 1400 CAN (Porcine) SC Heparin Sodium 5,000 UNIT Q8H 05/12 0819 DC (Porcine) SC Insulin Human Regular 0 Q6 05/11 1800 AC 05/13 SC 0633 Ketorolac 15 MG Q6-PRN PRN 05/12 0830 AC 05/12 Tromethamine IV 1221 Lorazepam 1 MG Q6-PRN PRN 05/12 1345 AC 05/13 IV 0017 Lorazepam 2 MG Q6-PRN PRN 05/12 1215 DC 05/12 IV 1221 Pantoprazole Sodium 40 MG DAILY 05/11 1801 AC 05/12 IV 0812 Trimethobenzamide HCl 200 MG 4 TIMES/DAY PRN 05/11 1545 AC IM Impression/Plan Impression/Problem List Impression: Ms. Rosen is an 82-year-old female with past medical history of COPD, diabetes mellitus, hypertension, hyperlipidemia, and severe osteoarthritis postop day 1 elective right total knee arthroplasty with postoperative course complicated by hypercarbic respiratory failure secondary to oversedation initially treated with BiPAP and subsequently intubated for worsening respiratory acidosis and persistent vomiting. Problem list: 1. Acute hypercarbic respiratory failure secondary to oversedation 2. Status post elective right knee total arthroplasty 3. Congestive heart failure Plan: Neurology: -Patient alert and oriented -Pain is well controlled -Acetaminophen IV every 8 hours -Per surgery, ketorolac 15 mg every 6 hours as needed severe pain, watch creatinine Respiratory: -Patient was intubated status post hypercarbic respiratory failure secondary to oversedation -ABG subsequently markedly improved, now normal -Weaning trial yesterday went well but she was slightly hypercarbic so she remained intubated -Ampicillin/sulbactam for prevention of aspiration pneumonia -Follow-up chest x-ray this morning -Nebulizers as needed -Attempt another weaning trial today Cardiology: -Patient has history of congestive heart failure followed by Dr. Pastor -Chest x-ray showed pulmonary edema and she received 40 mg of Lasix -She is -651 mL in past 24 hours -Consider further diuresis depending on clinical course, 20mg furosemide PO QD -Blood pressure normal, holding amlodipine and simvastatin -Cardiology consult, echocardiogram today -Strict I's and Os, lucas in place GI: -Patient had persistent nausea and vomiting likely secondary to the anesthesia -She is no longer vomiting -Continue antiemetics -Currently n.p.o., if not extubated today, we will start tube feeds Endocrinology: -Patient has history of type 2 diabetes mellitus, [id number] -Holding home diabetes medications -N.p.o. insulin sliding scale Orthopedic: -Patient postop day 2 total knee arthroplasty -Therapeutic enoxaparin DVT prophylaxis enoxaparin N.p.o. Full code Problem List: 1. Pulmonary edema 2. Acute hypercapnic respiratory failure Pain Ratin Tomorrow's Labs & Rationales: cbc ciu Plan DVT/Prophylaxis: mechanical, pharmacological Code Status: Full Code
--- NOTE | 2018-05-13 09:33 | PN- CRCU ---
Subjective HPI/Critical Care Issues: The patient remains intubated, on mechanical ventilation. She is awake and alert. She is eager to have the endotracheal tube removed. The patient remains on 35% oxygen. Her saturations are in the high 90s. She is afebrile. She is moving all extremities independently. The patient was started on IV fluids by the overnight team. Objective Current Medications: Current Medications Sig/Olivier Start time Last Medication Dose Route Stop Time Status Admin Acetaminophen 1,000 MG Q8 05/12 0820 AC 05/13 N/A 1 UNIT IV 0618 Albuterol Sulfate 3 ML EVERY 4 HRS/AWAKE 05/12 1623 AC 05/13 INH 0616 Albuterol Sulfate 3 ML Q4 05/12 1000 DC INH Ampicillin Sodium/ 3,000 MG Q6H 05/11 2200 AC 05/13 Sulbactam Sodium IV 0430 Sodium Chloride 100 ML Chlorhexidine 30 ML BID 05/12 2100 AC 05/13 Gluconate PO 0836 Dextrose/Sodium 1,000 ML Q20H 05/12 1830 DC 05/12 Chloride IV 1840 Enoxaparin Sodium 30 MG BID 05/12 2100 AC 05/13 SC 0836 Furosemide 20 MG DAILY 05/13 0900 AC PO Heparin Sodium 5,000 UNIT Q8 05/12 1400 CAN (Porcine) SC Heparin Sodium 5,000 UNIT Q8H 05/12 0819 DC (Porcine) SC Insulin Human Regular 0 Q6 05/11 1800 AC 05/13 SC 0633 Ketorolac 15 MG Q6-PRN PRN 05/12 0830 AC 05/12 Tromethamine IV 1221 Lorazepam 1 MG Q6-PRN PRN 05/12 1345 AC 05/13 IV 0017 Lorazepam 2 MG Q6-PRN PRN 05/12 1215 DC 05/12 IV 1221 Pantoprazole Sodium 40 MG DAILY 05/11 1801 AC 05/13 IV 0836 Trimethobenzamide HCl 200 MG 4 TIMES/DAY PRN 05/11 1545 AC IM Vital Signs & I&O Last 24 Hrs of Vitals and I&O: Vital Signs Date Time Temp Pulse Resp B/P B/P Pulse O2 O2 Flow FiO2 Mean Ox Delivery Rate 05/13 0800 97 Ventilator 35% 05/13 08 97.9 88 18 128/64 97 Ventilator 35% 05/13 0618 97.3 05/13 0615 35 05/13 0400 98 Ventilator 35% 05/13 0340 35 05/13 0115 35 05/13 0000 97.6 91 20 146/70 96 Ventilator 35% 05/13 0000 96 Ventilator 35% 05/12 2235 97.6 05/12 2233 35 05/12 2136 98.0 05/12 2000 95 Ventilator 35% 05/12 1930 35 05/12 1630 35 05/12 1600 95 Ventilator 35% 05/12 1600 97.5 81 18 116/50 95 Ventilator 35% 05/12 1405 35 05/12 1204 40 05/12 1200 99 Ventilator 35% 05/12 1200 97.5 98 18 146/62 99 Ventilator 35% Intake & Output 05/13 1600 05/13 0800 05/13 0000 Intake Total 580 532 Output Total 350 550 Balance 230 -18 Intake, IV 580 532 Intake, Other 0 Number 0 0 Bowel Movements Output, 150 350 Gastric Drainage Output, Urine 200 200 Patient 253 lb Weight Exam General Appearance: well developed/nourished, no apparent distress, alert, awake , anxious, intubated Respiratory: wheezing Cardiovascular: regular rate/rhythm Gastrointestinal: normal bowel sounds, soft, non-tender Extremities: no edema, right leg with surgical dressings Results Last 24 Hrs of Lab Results: Laboratory Tests 05/13/18 0425: Anion Gap 9, Estimated GFR 48 L, Glucose 156 H, Calcium 8.1 L, Phosphorus 3.3 , Magnesium 1.7, Total Bilirubin 0.4, AST 16, ALT 25, Albumin 3.2 L, CBC w Diff NO MAN DIFF REQ, RBC 3.41 L, MCV 90.6, MCH 30.3, MCHC 33.5, RDW 14.3, MPV 9.6, Gran % 77.2 H, Lymphocytes % 11.9 L, Monocytes % 9.5 H, Eosinophils % 1.2, Basophils % 0.2, Absolute Granulocytes 4.4, Absolute Lymphocytes 0.7 L, Absolute Monocytes 0.5, Absolute Eosinophils 0.1, Absolute Basophils 0 05/12/18 1130: pH 7.34 L, pCO2 57 H, pO2 108 H, HCO3 29.6 H, ABG O2 Sat (Measured) 97.0, Carboxyhemoglobin 0.3 L, O2 Concentration % 40%, O2 Delivery Method T-PIECE, Phlebotomy Draw Site LEFT RADIAL Impression/Plan Impression/Plan Impression/Plan: 1. Acute hypercarbic respiratory failure secondary to oversedation. 2. Status post elective right knee total arthroplasty. 3. Congestive heart failure. 4. Aspiration pneumonia, on IV Unasyn. 5. COPD. 6. Morbid obesity. Recommendations: * Continue with weaning trials. * Continue nebs/total respiratory care. * Will extubate if parameters are acceptable. * Stop IV fluids. * Await cardiology input. * We will continue to consider diuresis. * Continue IV Unasyn. * Follow up cultures. * Vent bundleDVT and GI prophylaxis at all times. * Continue all current management. * Discussed with housestaff. Will discuss with surgical team. Code Status: Full Code
--- NOTE | 2018-05-13 10:36 | PN- Cardiology ---
Subjective Subjective: Patient remains intubated. No significant arrhythmias detected on cube cutter. Hemodynamically stable. Weaning ongoing today. Objective Vital Signs and I&Os Vital Signs Date Time Temp Pulse Resp B/P B/P Pulse O2 O2 Flow FiO2 Mean Ox Delivery Rate 05/13 0907 35 05/13 0800 97 Ventilator 35% 05/13 0800 97.9 88 18 128/64 97 Ventilator 35% 05/13 0618 97.3 05/13 0615 35 05/13 0400 98 Ventilator 35% 05/13 0340 35 05/13 0115 35 05/13 0000 97.6 91 20 146/70 96 Ventilator 35% 05/13 0000 96 Ventilator 35% 05/12 2235 97.6 05/12 2233 35 05/12 2136 98.0 05/12 2000 95 Ventilator 35% 05/12 1930 35 05/12 1630 35 05/12 1600 95 Ventilator 35% 05/12 1600 97.5 81 18 116/50 95 Ventilator 35% 05/12 1405 35 05/12 1204 40 05/12 1200 99 Ventilator 35% 05/12 1200 97.5 98 18 146/62 99 Ventilator 35% Intake & Output 05/13 1600 05/13 0800 05/13 0000 05/12 1600 05/12 0800 05/12 0000 Intake Total 580 532 280 127 563 Output Total 350 550 850 190 800 Balance 230 -18 -570 -63 -237 Intake, IV 580 532 280 127 563 Intake, Oral 0 Intake, Other 0 Number 0 0 0 0 Bowel Movements Output, 150 350 150 100 Gastric Drainage Output, Urine 200 200 700 190 700 Patient 253 lb 254 lb Weight Weight Bed scale Measurement Method Physical Exam: Gen: The patient is awake on the ventilator, and is in no acute distress HEENT: Normal. Neck: Supple with no JVD, no masses, and no thyromegaly; carotids normal bilaterally Lungs: Reasonable air entry bilaterally Heart: RRR, S1, S2, no murmurs. Abdomen: Soft, nontender, no masses. No hepatomegaly. No splenomegaly Extremities: No clubbing, cyanosis, or edema Skin: Normal Neuro: Grossly nonfocal Current Medications: Current Medications Sig/Olivier Start time Last Medication Dose Route Stop Time Status Admin Acetaminophen 1,000 MG Q8 05/12 0820 AC 05/13 N/A 1 UNIT IV 0618 Albuterol Sulfate 3 ML EVERY 4 HRS/AWAKE 05/12 1623 AC 05/13 INH 0919 Albuterol Sulfate 3 ML Q4 05/12 1000 DC INH Ampicillin Sodium/ 3,000 MG Q6H 05/11 2200 AC 05/13 Sulbactam Sodium IV 0949 Sodium Chloride 100 ML Chlorhexidine 30 ML BID 05/12 2100 AC 05/13 Gluconate PO 0836 Dextrose/Sodium 1,000 ML Q20H 05/12 1830 DC 05/12 Chloride IV 1840 Enoxaparin Sodium 30 MG BID 05/12 2100 AC 05/13 SC 0836 Furosemide 20 MG DAILY 05/13 0900 AC 05/13 PO 0949 Heparin Sodium 5,000 UNIT Q8 05/12 1400 CAN (Porcine) SC Insulin Human Regular 0 Q6 05/11 1800 AC 05/13 SC 0633 Ketorolac 15 MG Q6-PRN PRN 05/12 0830 AC 05/12 Tromethamine IV 1221 Lorazepam 1 MG Q6-PRN PRN 05/12 1345 AC 05/13 IV 0017 Lorazepam 2 MG Q6-PRN PRN 05/12 1215 DC 05/12 IV 1221 Pantoprazole Sodium 40 MG DAILY 05/11 1801 AC 05/13 IV 0836 Trimethobenzamide HCl 200 MG 4 TIMES/DAY PRN 05/11 1545 AC IM Results Last 48 Hrs of Labs/Mics: Laboratory Tests 05/13/18 0425: Anion Gap 9, Estimated GFR 48 L, Glucose 156 H, Calcium 8.1 L, Phosphorus 3.3 , Magnesium 1.7, Total Bilirubin 0.4, AST 16, ALT 25, Albumin 3.2 L, CBC w Diff NO MAN DIFF REQ, RBC 3.41 L, MCV 90.6, MCH 30.3, MCHC 33.5, RDW 14.3, MPV 9.6, Gran % 77.2 H, Lymphocytes % 11.9 L, Monocytes % 9.5 H, Eosinophils % 1.2, Basophils % 0.2, Absolute Granulocytes 4.4, Absolute Lymphocytes 0.7 L, Absolute Monocytes 0.5, Absolute Eosinophils 0.1, Absolute Basophils 0 05/12/18 1130: pH 7.34 L, pCO2 57 H, pO2 108 H, HCO3 29.6 H, ABG O2 Sat (Measured) 97.0, Carboxyhemoglobin 0.3 L, O2 Concentration % 40%, O2 Delivery Method T-PIECE, Phlebotomy Draw Site LEFT RADIAL 05/12/18 0330: Anion Gap 9, Estimated GFR 48 L, Glucose 122 H, Calcium 8.2 L, Phosphorus 3.4 , Magnesium 1.7, Total Bilirubin 0.3, AST 16, ALT 19, Troponin I < 0.01, Albumin 3.3 L, CBC w Diff MAN DIFF ORDERED, RBC 3.58 L, MCV 91.4, MCH 30.3, MCHC 33.2, RDW 14.4, MPV 10.2, Gran % 85.9 H, Lymphocytes % 7.3 L, Monocytes % 6.6, Eosinophils % 0.1, Basophils % 0.1, Absolute Granulocytes 6.1, Segmented Neutrophils 85 H, Absolute Lymphocytes 0.5 L, Lymphocytes 9 L, Monocytes 6, Absolute Monocytes 0.5, Absolute Eosinophils 0, Absolute Basophils 0, Nucleated RBCs 1 H, Platelet Estimate ADEQUATE, Polychromasia 1+, Basophilic Stippling SLIGHT, Ovalocytes FEW, Fld Total RBCs Counted 100 05/11/182224: pH 7.45, pCO2 40, pO2 97, HCO3 27, ABG O2 Sat (Measured) 97.0, P-50 (Temp Corrected) N, Carboxyhemoglobin 0.5 L, O2 Concentration % 40%, Temperature 97.4 , Respiration Rate 18, O2 Delivery Method ESPRIT, Vent Mode AC, Expiratory Pressure 5, Tidal Volume 500, Phlebotomy Draw Site RIGHT RADIAL 05/11/185: Anion Gap 7, Estimated GFR 60, Glucose 222 H, Lactic Acid 0.9, Calcium 8.0 L, Phosphorus 2.9, Magnesium 1.6, Total Bilirubin 0.5, AST 17, ALT 30, Troponin I < 0.01, Albumin 3.3 L 05/11/18 1945: Troponin I Cancelled 05/11/18 1810: pH 7.44, pCO2 40, pO2 103 H, HCO3 27, ABG O2 Sat (Measured) 97.0, P-50 (Temp Corrected) N, Carboxyhemoglobin 0.6 L, O2 Concentration % 45%, Temperature 97.1 , Respiration Rate 26, O2 Delivery Method ESPRIT, Vent Mode AC, Expiratory Pressure 5, Tidal Volume 500, Phlebotomy Draw Site RIGHT BRACHIAL 05/11/18 1623: PT 11.6, INR 1.06, APTT 26, CBC w Diff NO MAN DIFF REQ, RBC 3.93 L, MCV 92.4, MCH 29.7, MCHC 32.1 L, RDW 14.4, MPV 10.1, Gran % 93.0 H, Lymphocytes % 4.9 L , Monocytes % 2.0, Eosinophils % 0.1, Basophils % 0, Absolute Granulocytes 8.4 H, Absolute Lymphocytes 0.4 L, Absolute Monocytes 0.2, Absolute Eosinophils 0, Absolute Basophils 0 05/11/18 1555: pH 7.12 *L, pCO2 96 *H, pO2 161 H, HCO3 30 H, ABG O2 Sat (Measured) 97.0, P-50 (Temp Corrected) N, Carboxyhemoglobin 1.4 L, O2 Concentration % 60%, Temperature 97.1, O2 Delivery Method PRB, Phlebotomy Draw Site LEFT RADIAL 05/11/18 1545: Vib-X-Aoiyccveyrc Pept 2590 H 05/11/18 1545: Anion Gap 8, Estimated GFR 60, Glucose 362 H, Calcium 7.9 L, Phosphorus 5.8 H , Magnesium 1.4 L, Total Bilirubin 0.4, AST 20, ALT 20, Troponin I < 0.01, Albumin 3.8 05/11/18 1359: Magnesium Cancelled, CBC w Diff Cancelled, WBC Cancelled, RBC Cancelled, Hgb Cancelled, Hct Cancelled, MCV Cancelled, MCH Cancelled, MCHC Cancelled, RDW Cancelled, Plt Count Cancelled, MPV Cancelled 05/11/18 1352: pH 7.18 *L, pCO2 81 *H, pO2 69 L, HCO3 30 H, ABG O2 Sat (Measured) 88.0 L, P- 50 (Temp Corrected) N, Carboxyhemoglobin 1.8, O2 Concentration % 40%, Respiration Rate 26, O2 Delivery Method BIPAP, Vent Mode ST, Expiratory Pressure 6, Inspiratory Pressure 22, Phlebotomy Draw Site LEFT RADIAL 05/11/18 1138: pH 7.03 *L, pCO2 128 *H, pO2 80, HCO3 33 H, ABG O2 Sat (Measured) 89.0 L, P-50 (Temp Corrected) N, Carboxyhemoglobin 1.8, O2 Concentration % 2.5L, Temperature 98.0, O2 Delivery Method N/C, Phlebotomy Draw Site LEFT RADIAL Microbiology 05/11 1630 UPPER RESP: Surveillance Culture - COMP 05/11 1630 GI: Surveillance Culture - COMP Assessment/Plan Assessment/Plan Assessment: 1. Postoperative pulmonary edema-improved 2. Day #2 post knee replacement surgery 3. Diabetes 4. Hypertension 5. Mild acute renal failure 6. Normocytic anemia-slightly worse today Recommendations: -Continue to monitor on cube cutter for now -In view of the patient's improved chest x-ray, stable respiratory status, and slight worsening of renal function, I would hold any further diuresis for now. -Continue to monitor intakes, outputs, daily weights -Follow-up labs in the morning -Echocardiogram pending Continue telemetry? Yes
[2018-05-13 12:00] VITALS: BP 140/72
--- NOTE | 2018-05-13 14:44 | RADIOLOGY REPORT ---
EXAMINATION: XR PORTABLE CHEST CLINICAL INFORMATION: Endotracheal tube evaluation COMPARISON: 05/12/2018 TECHNIQUE: Portable frontal view of the chest was obtained. FINDINGS: Endotracheal tube tip approximately 5.9 cm above the jacques, similar to the prior study. Limited evaluation of the lungs due to the patient's body habitus with extensive soft tissue obscuration of the lower lung zones. The degree of lung inflation is similar when compared with the prior study. No definite focal consolidation, pleural effusion or pneumothorax. The cardiac mediastinal silhouette is unchanged. Cardiac megaly. Tortuosity and atherosclerosis thoracic aorta. IMPRESSION: 1. Endotracheal tube is unchanged, 5.9 cm above the jacques. Positioning should be at 2-5 cm above the jacques. 2. No significant interval change to the appearance of the lungs when compared with most recent prior study, representing an overall improvement in the airspace opacities previously seen.
[2018-05-13 16:00] VITALS: BP 120/64
[2018-05-14] VITALS: BP 118/50
[2018-05-14 05:00] LABS: ABSOLUTE BASOPHIL COUNT 0 /CUMM (0.0-0.2); ABSOLUTE EOSINOPHIL COUNT 0.1 /CUMM (0.0-0.7); ABSOLUTE GRANULOCYTE CT 3.5 /CUMM (1.4-6.5); ABSOLUTE LYMPH COUNT 0.4 /CUMM (1.2-3.4); ABSOLUTE MONOCYTE COUNT 0.4 /CUMM (0.10-0.60); BASOPHIL % 0.2 % (0.0-2.0); EOSINOPHIL % 2.4 % (0-5); GRANULOCYTE % 78.8 % (42.2-75.2); HEMATOCRIT 30.7 % (37-47); MEAN CORPUSCULAR HGB CONC 32.4 G/DL (33.0-37.0); MEAN CORPUSCULAR VOLUME 92.7 FL (81.0-99.0); MEAN PLATELET VOLUME 9.1 FL (7.4-10.4); PLATELET COUNT 147 /CUMM (130-400); RBC DISTRIBUTION WIDTH 14.8 % (11.5-14.5); RED BLOOD CELL CT 3.32 /CUMM (4.20-5.40); WHITE BLOOD CELL COUNT 4.4 /CUMM (4.8-10.8)
--- NOTE | 2018-05-14 05:41 | PN- Orthopedic ---
See Addendum Subjective Subjective: pod# s/p right tka extubated yesterday, with productive cough now on 4L Nasal O2 @ 98% denies cp, with she feel is her usual sob status no n+v with diet was oob with pt yesterday taling only a few steps in room on lovenox bid for dvt prophylaxis Objective Vital Signs and I&Os Vital Signs Date Time Temp Pulse Resp B/P B/P Pulse O2 O2 Flow FiO2 Mean Ox Delivery Rate 05/14 0000 99 Nasal 4.0L Cannula 05/14 0000 97.2 89 18 118/50 99 Nasal 4.0L Cannula 05/13 2000 97 Nasal 4.0L Cannula 05/13 1805 95 Nasal 3.5L Cannula 05/13 1659 98.8 05/13 1600 97 Nasal 4.0L Cannula 05/13 1600 98.8 100 18 120/64 97 Nasal 4.0L Cannula 05/13 1200 98 Nasal 4.0L Cannula 05/13 1200 98.0 98 18 140/72 98 Nasal 4.0L Cannula 05/13 0907 35 05/13 0800 97 Ventilator 35% 05/13 0800 97.9 88 18 128/64 97 Ventilator 35% 05/13 0618 97.3 05/13 0615 35 Intake & Output 05/14 0800 05/14 0000 05/13 1600 05/13 0800 05/13 0000 05/12 1600 Intake Total 540 580 532 280 Output Total 400 350 550 850 Balance 140 230 -18 -570 Intake, IV 300 580 532 280 Intake, Oral 240 Intake, Other 0 Number 0 0 0 Bowel Movements Output, 150 350 150 Gastric Drainage Output, Urine 400 200 200 700 Patient 253 lb Weight Physical Exam: cv: rrr lungs: scattered rhonchi throughout, decreased in bases abd: soft, +bs ext: wound c/d/i, calves soft, distal cms intact Assessment/Plan Assessment/Plan ortho stable pulm issues primary concern plan cont oob with pt if ok with icu team wean O2 lovenox for dvt prophylaxis f/u am labs d/c planning Core Measures Venous Thromboembolism VTE Risk Factors Surgery No Mechanical VTE Prophylaxis d/t Physical Contraindication No VTE Pharm Prophylaxis d/t NA PharmProphylax ordered
--- NOTE | 2018-05-14 07:55 | PN- Resident CRCU ---
See Addendum Subjective HPI/CRCU Issues: No overnight events. Patient comfortable without shortness of breath or pain. She ate okay last night but was afraid of becoming nauseous. She does not use oxygen at home. Objective Vital Signs & I&O Last 8 Hrs of Vitals and I&O: Vital Signs Date Time Temp Pulse Resp B/P B/P Pulse O2 O2 Flow FiO2 Mean Ox Delivery Rate 05/14 0400 94 Nasal 4.0L Cannula 05/14 0000 99 Nasal 4.0L Cannula 05/14 0000 97.2 89 18 118/50 99 Nasal 4.0L Cannula 05/13 2000 97 Nasal 4.0L Cannula 05/13 1805 95 Nasal 3.5L Cannula 05/13 1659 98.8 05/13 1600 97 Nasal 4.0L Cannula 05/13 1600 98.8 100 18 120/64 97 Nasal 4.0L Cannula 05/13 1200 98 Nasal 4.0L Cannula 05/13 1200 98.0 98 18 140/72 98 Nasal 4.0L Cannula 05/13 0907 35 05/13 0800 97 Ventilator 35% 05/13 0800 97.9 88 18 128/64 97 Ventilator 35% Intake & Output 05/14 0800 05/14 0000 05/13 1600 Intake Total 240 540 429 Output Total 550 400 650 Balance -310 140 -221 Intake, IV 200 300 319 Intake, Oral 40 240 Intake, Other 110 Number 0 0 Bowel Movements Output, Urine 550 400 650 Patient 114.957 kg Weight Intake & Output 05/14 0800 Intake Total 240 Output Total 550 Balance -310 Intake, IV 200 Intake, Oral 40 Number 0 Bowel Movements Output, Urine 550 Exam General Appearance: no apparent distress, alert, awake, comfortable Respiratory: chest non-tender, no respiratory distress, quiet respiration, lungs clear Cardiovascular: regular rate/rhythm Gastrointestinal: normal bowel sounds, soft, non-tender Extremities: pedal edema Weaning Parameters NIF: 56 Minute Volume: 7.23 Resp rate: 16 Vt: 752 Heart Rate: 87 Weaning Schedule Start Time: 09 Minute Volume: 7.23 Resp Rate: 16 Vt: 752 Heart Rate: 87 End Time: 1045 Minute Volume: 8.33 Resp Rate: 19 Vt: 511 Heart Rate: 96 Start Time: 1045 Heart Rate: 92 End Time: 1145 Heart Rate: 88 Current Medications: Current Medications Sig/Olivier Start time Last Medication Dose Route Stop Time Status Admin Acetaminophen 1,000 MG Q8P PRN 05/14 0715 AC PO Acetaminophen 0 .STK-MED ONE 05/14 0602 DC IV Acetaminophen 1,000 MG Q8 05/12 0820 DC 05/14 N/A 1 UNIT IV 0610 Albuterol Sulfate 3 ML EVERY 4 HRS/AWAKE 05/12 1623 AC 05/13 INH 1805 Ampicillin Sodium/ 3,000 MG Q6H 05/11 2200 AC 05/14 Sulbactam Sodium IV 0425 Sodium Chloride 100 ML Chlorhexidine 30 ML BID 05/12 2100 DC 05/13 Gluconate PO 2030 Enoxaparin Sodium 30 MG BID 05/12 2100 AC 05/13 SC 2030 Furosemide 20 MG DAILY 05/13 0900 AC 05/13 PO 0949 Insulin Aspart 0 TIDAC 05/14 0800 AC SC Insulin Human Regular 0 TIDAC 05/14 0800 CAN SC Insulin Human Regular 0 Q6 05/11 1800 DC 05/13 SC 1323 Ketorolac 15 MG Q6-PRN PRN 05/12 0830 AC 05/12 Tromethamine IV 1221 Lorazepam 1 MG Q6-PRN PRN 05/12 1345 DC 05/13 IV 0017 Pantoprazole Sodium 40 MG DAILY 05/11 1801 DC 05/13 IV 0836 Trimethobenzamide HCl 200 MG 4 TIMES/DAY PRN 05/11 1545 AC IM Impression/Plan Impression/Problem List Impression: Ms. Rosen is an 82-year-old female with past medical history of COPD, diabetes mellitus, hypertension, hyperlipidemia, and severe osteoarthritis postop day 3 elective right total knee arthroplasty with postoperative course complicated by hypercarbic respiratory failure secondary to oversedation initially treated with BiPAP and subsequently intubated for worsening respiratory acidosis and persistent vomiting, then extubated on 05/13/18. Problem list: 1. Acute hypercarbic respiratory failure secondary to oversedation 2. Status post elective right knee total arthroplasty 3. Pulmonary edema 4. H. influenzae pneumonia Plan: Neurology: -Patient alert and oriented -Pain is well controlled -Acetaminophen p.o. as needed -Per surgery, ketorolac 15 mg every 6 hours as needed severe pain, watch creatinine Respiratory: -Patient was intubated status post hypercarbic respiratory failure secondary to oversedation -Extubated on 05/13/18 -Ampicillin/sulbactam day 3 for H. influenzae pneumonia, consider transitioning to oral antibiotics today -Nebulizers as needed -Patient still on 4 L of oxygen but does not use oxygen at home, attempt to wean this Cardiology: -Patient has history of congestive heart failure followed by Dr. Pastor -Chest x-ray showed pulmonary edema and she received 40 mg of Lasix -She is -310 mL in past 24 hours -Consider further diuresis depending on clinical course, 20mg furosemide PO QD -Blood pressure normal, holding amlodipine and simvastatin -Cardiology consult, echocardiogram pending -Strict I's and Os GI: -Patient had persistent nausea and vomiting likely secondary to the anesthesia -She is no longer vomiting -Continue antiemetics -Mechanical soft/honey diet per swallow evaluation Endocrinology: -Patient has history of type 2 diabetes mellitus, [id number] -Holding home diabetes medications -Insulin sliding scale Orthopedic: -Patient postop day 3 total knee arthroplasty -Therapeutic enoxaparin DVT prophylaxis enoxaparin N.p.o. Full code Problem List: 1. Pulmonary edema 2. H. influenzae infection Pain Ratin Tomorrow's Labs & Rationales: cbc icu Plan DVT/Prophylaxis: mechanical, pharmacological Code Status: Full Code
[2018-05-14 08:00] VITALS: BP 108/58
--- NOTE | 2018-05-14 12:38 | ECHOCARDIOGRAM REPORT ---
JOSE ALBRECHT Age: 82 : 1935 Gender: F Exam Date: 05/13/2018 16:23 Exam Location: [facility] Ht (in): 69 Wt (lb): 254 BSA: 2.42 BP: 140 / 70 Ordering Physician: Coty Muñiz MD Referring Physician: Girma Lopez MD Technologist: Stefani Villalta ALTON Room Number: 109 Indications: Congenital Heart Disease Rhythm: Sinus Technical Quality: Technically difficult study FINDINGS Left Ventricle Normal size left ventricle. Mild concentric left ventricular hypertrophy. Grossly normal left ventricular systolic function. No obvious regional wall motion abnormalities. Right Ventricle Normal right ventricular size and function. Right Atrium Normal right atrial size. Left Atrium Mild left atrial dilatation. Mitral Valve Mild mitral annular calcification. Mitral valve thickened. Mild mitral regurgitation. Aortic Valve Aortic valve thickened. No aortic stenosis. No aortic regurgitation. Tricuspid Valve Tricuspid valve not well visualized, grossly normal. Mild tricuspid regurgitation. Right ventricular systolic pressure estimated to be elevated at 64 mmHg. Pulmonic Valve Pulmonic valve not well visualized, grossly normal. Trace pulmonic regurgitation. Pericardium No pericardial effusion. Great Vessels Normal size aortic root. CONCLUSIONS Normal size left ventricle. Mild concentric left ventricular hypertrophy. Grossly normal left ventricular systolic function. No obvious regional wall motion abnormalities. Mild left atrial dilatation. Mild mitral regurgitation. Mitral valve thickened. Mild tricuspid regurgitation. Right ventricular systolic pressure estimated to be elevated at 64 mmHg. Trace pulmonic regurgitation. Technically difficult study. Girma Lopez M.D. (Electronically Signed) Final Date: 14 May 2018 12:33 MEASUREMENTS (Male / Female) Normal Values 2D ECHO LV Diastolic Diameter PLAX 4.6 cm 4.2 - 5.9 / 3.9 - 5.3 cm LV Systolic Diameter PLAX 3.7 cm 2.1 - 4.0 cm LV Fractional Shortening PLAX 19.6 % 25 - 46 % LV Ejection Fraction 2D Teich 40.3 % IVS Diastolic Thickness 1.2 cm LVPW Diastolic Thickness 1.2 cm LV Relative Wall Thickness 0.5 RV Internal Dim ED PLAX 3.2 cm 1.9 - 3.8 cm LVOT Diameter 2.0 cm Aortic Root Diameter 2.9 cm LA Systolic Diameter LX 4.7 cm 3.0 - 4.0 / 2.7 - 3.8 cm LA Volume 51.0 cm 18 - 58 / 22 - 52 cm Ascending Aorta Diameter 3.3 cm DOPPLER AV Peak Velocity 163.0 cm/s AV Peak Gradient 10.6 mmHg AV Mean Velocity 107.0 cm/s AV Mean Gradient 5.0 mmHg AV Velocity Time Integral 30.9 cm LVOT Peak Velocity 129.0 cm/s LVOT Peak Gradient 6.7 mmHg LVOT Mean Velocity 91.2 cm/s LVOT Mean Gradient 4.0 mmHg LVOT Velocity Time Integral 26.9 cm LVOT Stroke Volume 84.5 cm AV Area Cont Eq vti 2.7 cm AV Area Cont Eq pk 2.5 cm MV Peak Velocity 173.0 cm/s MV Peak Gradient 12.0 mmHg MV Mean Velocity 108.0 cm/s MV Mean Gradient 6.0 mmHg Mitral E Point Velocity 138.0 cm/s Mitral A Point Velocity 108.0 cm/s Mitral E to A Ratio 1.3 MV PHT Velocity 180.0 cm/s MV Deceleration Warren 650.0 cm/s MV Pressure Half Time 83.1 ms MV Area PHT 2.6 cm MV Deceleration Time 169.0 ms TR Peak Velocity 368.0 cm/s TR Peak Gradient 54.2 mmHg Right Atrial Pressure 10.0 mmHg Pulmonary Artery Systolic Pressure 64.2 mmHg Right Ventricular Systolic Pressure 64.2 mmHg PV Peak Velocity 112.0 cm/s PV Peak Gradient 5.0 mmHg PV Mean Velocity 77.4 cm/s PV Mean Gradient 3.0 mmHg PV Velocity Time Integral 23.1 cm LV E' Lateral Velocity 9.8 cm/s Mitral E to LV E' Lateral Ratio 14.2 LV E' Septal Velocity 8.0 cm/s Mitral E to LV E' Septal Ratio 17.3
--- NOTE | 2018-05-14 13:32 | PN- Cardiology ---
Subjective Subjective: Patient is comfortable today. No new cardiac issues. No significant shortness of breath. Objective Vital Signs and I&Os Vital Signs Date Time Temp Pulse Resp B/P B/P Pulse O2 O2 Flow FiO2 Mean Ox Delivery Rate 05/14 0839 94 Nasal 3.5L Cannula 05/14 0800 97 Nasal 4.0L Cannula 05/14 0800 98.0 88 20 108/58 97 Nasal 4.0L Cannula 05/14 0400 94 Nasal 4.0L Cannula 05/14 0000 99 Nasal 4.0L Cannula 05/14 0000 97.2 89 18 118/50 99 Nasal 4.0L Cannula 05/13 2000 97 Nasal 4.0L Cannula 05/13 1805 95 Nasal 3.5L Cannula 05/13 1659 98.8 05/13 1600 97 Nasal 4.0L Cannula 05/13 1600 98.8 100 18 120/64 97 Nasal 4.0L Cannula Intake & Output 05/14 1600 05/14 0800 05/14 0000 05/13 1600 05/13 0800 05/13 0000 Intake Total 240 540 429 580 532 Output Total 550 400 650 350 550 Balance -310 140 -221 230 -18 Intake, IV 200 300 319 580 532 Intake, Oral 40 240 Intake, Other 110 0 Number 0 0 0 0 Bowel Movements Output, 150 350 Gastric Drainage Output, Urine 550 400 650 200 200 Patient 253 lb Weight Physical Exam: Gen: The patient is awake on the ventilator, and is in no acute distress HEENT: Normal. Neck: Supple with no JVD, no masses, and no thyromegaly; carotids normal bilaterally Lungs: Reasonable air entry bilaterally Heart: RRR, S1, S2, no murmurs. Abdomen: Soft, nontender, no masses. No hepatomegaly. No splenomegaly Extremities: No clubbing, cyanosis, or edema Skin: Normal Neuro: Grossly nonfocal Current Medications: Current Medications Sig/Olivier Start time Last Medication Dose Route Stop Time Status Admin Acetaminophen 1,000 MG Q8P PRN 05/14 0715 AC PO Acetaminophen 0 .STK-MED ONE 05/14 0602 DC IV Acetaminophen 1,000 MG Q8 05/12 0820 DC 05/14 N/A 1 UNIT IV 0610 Albuterol Sulfate 3 ML EVERY 4 HRS/AWAKE 05/12 1623 AC 05/14 INH 1214 Ampicillin Sodium/ 3,000 MG Q6H 05/11 2200 AC 05/14 Sulbactam Sodium IV 1034 Sodium Chloride 100 ML Chlorhexidine 30 ML BID 05/12 2100 DC 05/13 Gluconate PO 2030 Enoxaparin Sodium 30 MG BID 05/12 2100 AC 05/14 SC 0758 Furosemide 20 MG DAILY 05/13 0900 AC 05/14 PO 0758 Hydromorphone HCl 0 .STK-MED ONE 05/14 1320 DC .ROUTE Insulin Aspart 0 TIDAC 05/14 0800 AC 05/14 SC 1154 Insulin Human Regular 0 TIDAC 05/14 0800 CAN SC Insulin Human Regular 0 Q6 05/11 1800 DC 05/13 SC 1323 Ketorolac 15 MG Q6-PRN PRN 05/12 0830 AC 05/12 Tromethamine IV 1221 Lorazepam 1 MG Q6-PRN PRN 05/12 1345 DC 05/13 IV 0017 Pantoprazole Sodium 40 MG DAILY 05/11 1801 DC 05/13 IV 0836 Trimethobenzamide HCl 200 MG 4 TIMES/DAY PRN 05/11 1545 AC IM Results Last 48 Hrs of Labs/Mics: Laboratory Tests 05/14/18 0440: Anion Gap 6, Estimated GFR > 60, Glucose 134 H, Calcium 7.8 L, Phosphorus 4.8 H, Magnesium 1.9, Total Bilirubin 0.4, AST 21, ALT 28, Albumin 3.1 L, CBC w Diff NO MAN DIFF REQ, RBC 3.32 L, MCV 92.7, MCH 30.0, MCHC 32.4 L, RDW 14.8 H , MPV 9.1, Gran % 78.8 H, Lymphocytes % 10.1 L, Monocytes % 8.5, Eosinophils % 2.4, Basophils % 0.2, Absolute Granulocytes 3.5, Absolute Lymphocytes 0.4 L, Absolute Monocytes 0.4, Absolute Eosinophils 0.1, Absolute Basophils 0 05/13/18 1115: pH 7.40, pCO2 52 H, pO2 157 H, HCO3 31 H, ABG O2 Sat (Measured) 98.0, Carboxyhemoglobin 0.2 L, O2 Concentration % 35%, O2 Delivery Method T-PIECE, Phlebotomy Draw Site LEFT RADIAL 05/13/18 0425: Anion Gap 9, Estimated GFR 48 L, Glucose 156 H, Calcium 8.1 L, Phosphorus 3.3 , Magnesium 1.7, Total Bilirubin 0.4, AST 16, ALT 25, Albumin 3.2 L, CBC w Diff NO MAN DIFF REQ, RBC 3.41 L, MCV 90.6, MCH 30.3, MCHC 33.5, RDW 14.3, MPV 9.6, Gran % 77.2 H, Lymphocytes % 11.9 L, Monocytes % 9.5 H, Eosinophils % 1.2, Basophils % 0.2, Absolute Granulocytes 4.4, Absolute Lymphocytes 0.7 L, Absolute Monocytes 0.5, Absolute Eosinophils 0.1, Absolute Basophils 0 Assessment/Plan Assessment/Plan Assessment: 1. Postoperative pulmonary edema-improved 2. Day #3 post knee replacement surgery 3. Diabetes 4. Hypertension 5. Mild acute renal failure 6. Normocytic anemia-slightly worse today 7. Pulmonary hypertension Recommendations: -Continue to monitor on residential monitor for now -In view of the patient's improved chest x-ray, stable respiratory status, and slight worsening of renal function, I would hold any further diuresis for now. -Continue to monitor intakes, outputs, daily weights -Follow-up labs in the morning -Echocardiogram showed mild left ventricular hypertrophy with normal left ventricular function. Mild tricuspid insufficiency was present with significant pulmonary hypertension and a right ventricular systolic pressure of 64 mmHg. Continue telemetry? Not applicable
[2018-05-14 21:47] VITALS: BP 131/69; BP 142/70
[2018-05-15 07:00] VITALS: BP 148/80
--- NOTE | 2018-05-15 07:46 | PN- Housestaff ---
Arielle Neumann 05/15/18 0746: Subjective Follow-up For: Acute hypercarbic respiratory failure Subjective: Patient was seen and examined at bedside. She desaturated to the 70s earlier in the morning. Her oxygen was increased to 3.5L. PT was in the room when I went to see the patient. The patient desaturated to the 70s while getting out of bed. She denies cough, sputum production, fever, chills, nausea, vomiting. Review of Systems Constitutional: Reports: see HPI. Objective Last 24 Hrs of Vital Signs/I&O Vital Signs Date Time Temp Pulse Resp B/P B/P Pulse O2 O2 Flow FiO2 Mean Ox Delivery Rate 05/15 1000 94 Nasal 3.5L Cannula 05/15 0827 Nasal 3.5L Cannula 05/15 0749 90 Nasal 3.5L Cannula 05/15 0700 72 Nasal 3.0L Cannula 05/15 07 97.5 77 16 148/80 99 05/15 0029 99.1 05/15 0000 93 Nasal 3.0L Cannula 05/14 2248 101.5 05/14 2147 98.7 97 16 142/70 92 Nasal Cannula 05/14 1645 96 Nasal 3.0L Cannula 05/14 1600 Nasal 3.0L Cannula Intake & Output 05/15 1600 05/15 0800 05/15 0000 Intake Total 360 360 Output Total 400 250 Balance -40 110 Intake, IV 120 120 Intake, Oral 240 240 Number 0 0 Bowel Movements Output, Urine 400 250 Physical Exam General Appearance: Alert, Oriented X3, Cooperative, No Acute Distress Neck: Supple Cardiovascular: Regular Rate, Normal S1, Normal S2, No Murmurs Lungs: Clear to Auscultation Abdomen: Normal Bowel Sounds, Soft Extremities: No Edema, Normal Pulses Assessment/Plan Assessment: Ms. Rosen is an 82-year-old female with past medical history of COPD, diabetes mellitus, hypertension, hyperlipidemia, and severe osteoarthritis postop day 3 elective right total knee arthroplasty with postoperative course complicated by hypercarbic respiratory failure secondary to oversedation initially treated with BiPAP and subsequently intubated for worsening respiratory acidosis and persistent vomiting, then extubated on 05/13/18. She was transferred to the [facility] service yesterday after intubation Problem list: 1. Acute hypercarbic respiratory failure secondary to oversedation 2. Status post elective right knee total arthroplasty 3. Pulmonary edema 4. H. influenzae pneumonia Plan: 1. Hypercarbic Respiratory Failure -Patient was intubated status post hypercarbic respiratory failure secondary to oversedation -Extubated on 05/13/18 -Ampicillin/sulbactam day 4 for H. influenzae pneumonia -Patient would be switch the patient to PO Augmetin today -Nebulizers as needed -Patient still on 3.5 L of oxygen but does not use oxygen at home, attempt to wean this 2. History of CHF -Patient has history of congestive heart failure followed by Dr. Pastor -She received 40 mg of Lasix in the morning -Repeat Chest Xray normal -Consider further diuresis depending on clinical course, 20mg furosemide PO QD -Blood pressure normal, holding amlodipine and simvastatin -Cardiology consult, echocardiogram pending -Strict I's and Os 3. Nausea and Vomiting -Patient had persistent nausea and vomiting likely secondary to the anesthesia -She is no longer vomiting -Continue antiemetics -Mechanical soft/honey diet per swallow evaluation 4. History of DM -Patient has history of type 2 diabetes mellitus, [id number] -Holding home diabetes medications -Insulin sliding scale 5. Post op Total Knee arthroplasty -Patient postop day 4 total knee arthroplasty -Therapeutic enoxaparin DVT prophylaxis enoxaparin Full code Problem List: 1. Pulmonary edema 2. Acute hypercapnic respiratory failure 3. Unilateral primary osteoarthritis, right knee Pain Ratin Pain Location: none Pain Goal: Remain pain free Pain Plan: pathway Tomorrow's Labs & Rationales: cbc and bep Reagan Means 05/15/18 1042: Attending MD Review Statement Attending Statement Attending MD Statement: examined this patient, discuss w/resident/PA/STRAIGHT TRUCK DRIVER, agreed w/resident/PA/STRAIGHT TRUCK DRIVER, discussed with family, reviewed EMR data (avail), discussed with nursing, discussed with case mgmt, reviewed images, amended to note Attending Assessment/Plan: 82-year-old female with past medical history of COPD, diabetes mellitus, hypertension, hyperlipidemia, and severe osteoarthritis postop day 3 elective right total knee arthroplasty with postoperative course complicated by hypercarbic respiratory failure secondary to oversedation and possible aspiration pneumonia being treated on iv unasyn transferred from ICU to gen/med. Patient seen/examined bedside. No new complaints. Still receving 4l of oxygen and desaturates to 5l on ambulation. She spiked fever 101.5 overnight. Pateint in nadja-operative management with elective knee arthropasty complicated by acute respiratory failure from oversedation and now improving but still requrining oxygen supplementation. Obtain repeat chest xray and c/w abx for possible aspiration. Follow up blood culture sent overnight. Also obtain urinalysis and urine culture. Lower extremity dopplers. DVT prophyalxis on lovenox 30 mg bid as per orthopedics. Monitor for fevers and work with PT. Discharge planning to STR once clinically improves.
[2018-05-15 08:15] LABS: ABSOLUTE BASOPHIL COUNT 0 /CUMM (0.0-0.2); ABSOLUTE EOSINOPHIL COUNT 0.1 /CUMM (0.0-0.7); ABSOLUTE GRANULOCYTE CT 4.1 /CUMM (1.4-6.5); ABSOLUTE LYMPH COUNT 0.5 /CUMM (1.2-3.4); ABSOLUTE MONOCYTE COUNT 0.4 /CUMM (0.10-0.60); BASOPHIL % 0.3 % (0.0-2.0); EOSINOPHIL % 1.8 % (0-5); HEMATOCRIT 32.4 % (37-47); MEAN CORPUSCULAR HGB 30.4 PG (27.0-31.0); MEAN CORPUSCULAR VOLUME 92.2 FL (81.0-99.0); MEAN PLATELET VOLUME 9.5 FL (7.4-10.4); PLATELET COUNT 166 /CUMM (130-400); RBC DISTRIBUTION WIDTH 14.8 % (11.5-14.5); RED BLOOD CELL CT 3.51 /CUMM (4.20-5.40); WHITE BLOOD CELL COUNT 5.1 /CUMM (4.8-10.8)
--- NOTE | 2018-05-15 08:36 | Transfer of Care Summary ---
See Addendum Hospital Course Course Hospital Course: Ms. Rosen is an 82-year-old female with past medical history of COPD, diabetes mellitus, hypertension, hyperlipidemia, and severe osteoarthritis postop day 3 elective right total knee arthroplasty with postoperative course complicated by hypercarbic respiratory failure secondary to oversedation initially treated with BiPAP and subsequently intubated for worsening respiratory acidosis and persistent vomiting, then extubated on 05/13/18. Her respiratory culture was growing H. influenzae, gram-negative rods, and staph aureus. She remained afebrile without leukocytosis on ampicillin/sulbactam and her respiratory status continued to improve. Swallow evaluation was also performed patient was initially on a honey thick diet with subsequent evaluation showed she could tolerate thin liquids. Patient was also noted to have pulmonary edema upon admission to the ICU and was treated with IV Lasix. Cardiology evaluated an echocardiogram showed normal EF. She has been maintained on oral furosemide without signs of reaccumulation. Problem list: 1. Acute hypercarbic respiratory failure secondary to oversedation 2. Status post elective right knee total arthroplasty 3. Pulmonary edema 4. Multi-organism aspiration pneumonia Plan: Neurology: -Patient alert and oriented -Pain is well controlled -Acetaminophen p.o. as needed -Per surgery, ketorolac 15 mg every 6 hours as needed severe pain, watch creatinine Respiratory: -Patient was intubated status post hypercarbic respiratory failure secondary to oversedation -Extubated on 05/13/18 -Ampicillin/sulbactam day 4 for aspiration pneumonia, consider transitioning to oral antibiotics today -Nebulizers as needed -Patient still on 4 L of oxygen but does not use oxygen at home, attempt to wean this -Please follow the respiratory culture for speciation and sensitivities Cardiology: -Patient has history of congestive heart failure followed by Dr. Pastor -Chest x-ray showed pulmonary edema and she received 40 mg of Lasix -Consider further diuresis depending on clinical course, 20mg furosemide PO QD -Blood pressure normal, holding amlodipine and simvastatin -Cardiology following, echocardiogram showed normal EF -Strict I's and Os GI: -Patient had persistent nausea and vomiting likely secondary to the anesthesia -She is no longer vomiting -Continue antiemetics -Normal diet per swallow evaluation Endocrinology: -Patient has history of type 2 diabetes mellitus, [id number] -Holding home diabetes medications -Insulin sliding scale Orthopedic: -Patient postop day 4 total knee arthroplasty -Therapeutic enoxaparin DVT prophylaxis enoxaparin Regular diet Full code Assessment/Plan: See above
--- NOTE | 2018-05-15 08:53 | PN- Orthopedic ---
See Addendum Subjective Subjective: Per nursing, patient O2 dropped when ambulating oob with PT and became sob, 5 L O2, applied and lasix ordered. Also reports lower extremitity edema. Currently, patient denies chest pain, sob or difficulty breathing. Denies knee pain. Per cardiology, echocardiogram revealed mild left ventricular hypertrophy with normal left ventricular function. Mild tricuspid insufficiency was present with significant pulmonary hypertension and a right ventricular systolic pressure of 64 mmHg. Objective Vital Signs and I&Os Vital Signs Date Time Temp Pulse Resp B/P B/P Pulse O2 O2 Flow FiO2 Mean Ox Delivery Rate 05/15 0827 Nasal 3.5L Cannula 05/15 0749 90 Nasal 3.5L Cannula 05/15 0700 72 Nasal 3.0L Cannula 05/15 0700 97.5 77 16 148/80 99 05/15 0029 99.1 05/15 0000 93 Nasal 3.0L Cannula 05/14 2248 101.5 05/14 2147 98.7 97 16 142/70 92 Nasal Cannula 05/14 1645 96 Nasal 3.0L Cannula 05/14 1600 Nasal 3.0L Cannula Intake & Output 05/15 1600 05/15 0800 05/15 0000 05/14 1600 05/14 0800 05/14 0000 Intake Total 360 360 960 240 540 Output Total 400 250 450 550 400 Balance -40 110 510 -310 140 Intake, IV 120 120 120 200 300 Intake, Oral 240 240 840 40 240 Number 0 0 1 0 Bowel Movements Output, Urine 400 250 450 550 400 Physical Exam: Gen - sitting in chair with 5L O2 nc Lungs - diminished at bases Ext - R knee dressing c/d/i, mild edema, no signs of infection, nontender, new dressing applied, moves all extremities, motor and senosry intact, calves nontender, 2+ pitting edema of distal RLE. Current Medications: Current Medications Sig/Olivier Start time Last Medication Dose Route Stop Time Status Admin Acetaminophen 1,000 MG Q8P PRN 05/14 0715 AC 05/14 PO 220 Albuterol Sulfate 3 ML EVERY 4 HRS/AWAKE 05/12 1623 AC 05/15 INH 0747 Ampicillin Sodium/ 3,000 MG Q6H 05/11 2200 AC 05/15 Sulbactam Sodium IV 0505 Sodium Chloride 100 ML Enoxaparin Sodium 30 MG BID 05/12 2100 AC 05/15 SC 0803 Furosemide 40 MG ONCE ONE 05/15 0830 DC 05/15 IV 05/15 0831 0851 Furosemide 20 MG DAILY 05/13 0900 AC 05/15 PO 0803 Hydromorphone HCl 0 .STK-MED ONE 05/14 1425 DC .ROUTE Hydromorphone HCl 0 .STK-MED ONE 05/14 1320 DC .ROUTE Insulin Aspart 0 TIDAC 05/14 0800 AC 05/15 SC 0852 Ketorolac 15 MG Q6-PRN PRN 05/12 0830 AC 05/12 Tromethamine IV 1221 Trimethobenzamide HCl 200 MG 4 TIMES/DAY PRN 05/11 1545 AC IM Results Last 48 Hours of Labs: Laboratory Tests 05/15 05/15 0704 0400 Chemistry Sodium (137 - 145 mmol/L) 138 Cancelled Potassium (3.5 - 5.1 mmol/L) 4.2 Cancelled Chloride (98 - 107 mmol/L) 97 L Cancelled Carbon Dioxide (22 - 30 mmol/L) 37 H Cancelled Anion Gap (5 - 16) 4 L Cancelled BUN (7 - 17 mg/dL) 16 Cancelled Creatinine (0.5 - 1.0 mg/dL) 0.7 Cancelled Estimated GFR (>60 ml/min) > 60 BUN/Creatinine Ratio (7 - 25 %) 22.9 Glucose Cancelled Calcium (8.4 - 10.2 mg/dL) 8.0 L Cancelled Phosphorus (2.5 - 4.5 mg/dL) 3.3 Cancelled Magnesium Cancelled Total Bilirubin Cancelled AST Cancelled ALT Cancelled Albumin (3.5 - 5.0 g/dL) 3.2 L Cancelled Hematology CBC w Diff NO MAN DIFF REQ Cancelled WBC (4.8 - 10.8 /CUMM) 5.1 Cancelled RBC (4.20 - 5.40 /CUMM) 3.51 L Cancelled Hgb (12.0 - 16.0 G/DL) 10.7 L Cancelled Hct (37 - 47 %) 32.4 L Cancelled MCV (81.0 - 99.0 FL) 92.2 Cancelled MCH (27.0 - 31.0 PG) 30.4 Cancelled MCHC (33.0 - 37.0 G/DL) 33.0 Cancelled RDW (11.5 - 14.5 %) 14.8 H Cancelled Plt Count (130 - 400 /CUMM) 166 Cancelled MPV (7.4 - 10.4 FL) 9.5 Cancelled Gran % (42.2 - 75.2 %) 80.0 H Lymphocytes % (20.5 - 51.1 %) 9.3 L Monocytes % (1.7 - 9.3 %) 8.6 Eosinophils % (0 - 5 %) 1.8 Basophils % (0.0 - 2.0 %) 0.3 Absolute Granulocytes (1.4 - 6.5 /CUMM) 4.1 Absolute Lymphocytes (1.2 - 3.4 /CUMM) 0.5 L Absolute Monocytes (0.10 - 0.60 /CUMM) 0.4 Absolute Eosinophils (0.0 - 0.7 /CUMM) 0.1 Absolute Basophils (0.0 - 0.2 /CUMM) 0 05/14 05/13 0440 1115 Blood Gas pH (7.35 - 7.45 PH) 7.40 pCO2 (35 - 45 TORR) 52 H pO2 (80 - 100 TORR) 157 H HCO3 (21 - 28 MEQ/L) 31 H ABG O2 Sat (Measured) (>96.0 %) 98.0 Carboxyhemoglobin (1.5 - 5.0 %) 0.2 L O2 Concentration % 35% O2 Delivery Method T-PIECE Chemistry Sodium (137 - 145 mmol/L) 142 Potassium (3.5 - 5.1 mmol/L) 3.9 Chloride (98 - 107 mmol/L) 99 Carbon Dioxide (22 - 30 mmol/L) 36 H Anion Gap (5 - 16) 6 BUN (7 - 17 mg/dL) 19 H Creatinine (0.5 - 1.0 mg/dL) 0.8 Estimated GFR (>60 ml/min) > 60 Glucose (65 - 99 mg/dL) 134 H Calcium (8.4 - 10.2 mg/dL) 7.8 L Phosphorus (2.5 - 4.5 mg/dL) 4.8 H Magnesium (1.6 - 2.3 mg/dL) 1.9 Total Bilirubin (0.2 - 1.3 mg/dL) 0.4 AST (14 - 36 U/L) 21 ALT (9 - 52 U/L) 28 Albumin (3.5 - 5.0 g/dL) 3.1 L Hematology CBC w Diff NO MAN DIFF REQ WBC (4.8 - 10.8 /CUMM) 4.4 L RBC (4.20 - 5.40 /CUMM) 3.32 L Hgb (12.0 - 16.0 G/DL) 9.9 L Hct (37 - 47 %) 30.7 L MCV (81.0 - 99.0 FL) 92.7 MCH (27.0 - 31.0 PG) 30.0 MCHC (33.0 - 37.0 G/DL) 32.4 L RDW (11.5 - 14.5 %) 14.8 H Plt Count (130 - 400 /CUMM) 147 MPV (7.4 - 10.4 FL) 9.1 Gran % (42.2 - 75.2 %) 78.8 H Lymphocytes % (20.5 - 51.1 %) 10.1 L Monocytes % (1.7 - 9.3 %) 8.5 Eosinophils % (0 - 5 %) 2.4 Basophils % (0.0 - 2.0 %) 0.2 Absolute Granulocytes (1.4 - 6.5 /CUMM) 3.5 Absolute Lymphocytes (1.2 - 3.4 /CUMM) 0.4 L Absolute Monocytes (0.10 - 0.60 /CUMM) 0.4 Absolute Eosinophils (0.0 - 0.7 /CUMM) 0.1 Absolute Basophils (0.0 - 0.2 /CUMM) 0 Miscellaneous Phlebotomy Draw Site LEFT RADIAL Assessment/Plan Assessment/Plan 82 F POD 4 s/p R total knee arthroplasty and correction of severe valgus deformity and flexion contracture, complicated by respiratory failure and pulmonary edema OOB w/ PT, WBAT Pain regimen prn DVT ppx - alps, lovenox 30mg SQ bid Dry daily dressing changes Dispo - likely STR All other medical management per primary Will d/w Dr. Almaguer Core Measures Venous Thromboembolism VTE Risk Factors Surgery No Mechanical VTE Prophylaxis d/t Physical Contraindication No VTE Pharm Prophylaxis d/t NA PharmProphylax ordered
--- NOTE | 2018-05-15 09:51 | PN- Pulmonary ---
Subjective HPI/Critical Care Issues: The patient is awake and alert. She reports feeling improved overall. She was reported to have oxygen desaturation and her nasal cannula was turned up to 4 L. She is awaiting IV Lasix. She has a nonproductive cough. She has intermittent wheezing. She denies any sputum production, fever, chills or chest pain. Objective Current Medications: Current Medications Sig/Olivier Start time Last Medication Dose Route Stop Time Status Admin Acetaminophen 1,000 MG Q8P PRN 05/14 0715 AC 05/14 PO 2207 Albuterol Sulfate 3 ML EVERY 4 HRS/AWAKE 05/12 1623 AC 05/15 INH 0747 Ampicillin Sodium/ 3,000 MG Q6H 05/11 2200 AC 05/15 Sulbactam Sodium IV 0505 Sodium Chloride 100 ML Enoxaparin Sodium 30 MG BID 05/12 2100 AC 05/15 SC 0803 Furosemide 40 MG ONCE ONE 05/15 0830 DC 05/15 IV 05/15 0831 0851 Furosemide 20 MG DAILY 05/13 0900 AC 05/15 PO 0803 Hydromorphone HCl 0 .STK-MED ONE 05/14 1425 DC .ROUTE Hydromorphone HCl 0 .STK-MED ONE 05/14 1320 DC .ROUTE Insulin Aspart 0 TIDAC 05/14 0800 AC 05/15 SC 0852 Ketorolac 15 MG Q6-PRN PRN 05/12 0830 AC 05/12 Tromethamine IV 1221 Trimethobenzamide HCl 200 MG 4 TIMES/DAY PRN 05/11 1545 AC IM Vital Signs & I&O Last 24 Hrs of Vitals and I&O: Vital Signs Date Time Temp Pulse Resp B/P B/P Pulse O2 O2 Flow FiO2 Mean Ox Delivery Rate 05/15 0827 Nasal 3.5L Cannula 05/15 0749 90 Nasal 3.5L Cannula 05/15 0700 72 Nasal 3.0L Cannula 05/15 0700 97.5 77 16 148/80 99 05/15 0029 99.1 05/15 0000 93 Nasal 3.0L Cannula 05/14 2248 101.5 05/14 2147 98.7 97 16 142/70 92 Nasal Cannula 05/14 1645 96 Nasal 3.0L Cannula 05/14 1600 Nasal 3.0L Cannula Intake & Output 05/15 1600 05/15 0800 05/15 0000 Intake Total 360 360 Output Total 400 250 Balance -40 110 Intake, IV 120 120 Intake, Oral 240 240 Number 0 0 Bowel Movements Output, Urine 400 250 Exam General Appearance: well developed/nourished, no apparent distress Respiratory: Bibasilar crackles, more prominent than previous, faint occasional wheezes Cardiovascular: regular rate/rhythm Gastrointestinal: normal bowel sounds, soft, non-tender Extremities: right leg with surgical dressings and edema Results Last 24 Hrs of Lab Results: Laboratory Tests 05/15/18 0704: Anion Gap 4 L, Estimated GFR > 60, BUN/Creatinine Ratio 22.9, Calcium 8.0 L, Phosphorus 3.3, Albumin 3.2 L, CBC w Diff NO MAN DIFF REQ, RBC 3.51 L, MCV 92.2, MCH 30.4, MCHC 33.0, RDW 14.8 H, MPV 9.5, Gran % 80.0 H, Lymphocytes % 9.3 L, Monocytes % 8.6, Eosinophils % 1.8, Basophils % 0.3, Absolute Granulocytes 4.1, Absolute Lymphocytes 0.5 L, Absolute Monocytes 0.4, Absolute Eosinophils 0.1, Absolute Basophils 0 05/15/18 0400: Sodium Cancelled, Potassium Cancelled, Chloride Cancelled, Carbon Dioxide Cancelled, Anion Gap Cancelled, BUN Cancelled, Creatinine Cancelled, Glucose Cancelled, Calcium Cancelled, Phosphorus Cancelled, Magnesium Cancelled, Total Bilirubin Cancelled, AST Cancelled, ALT Cancelled, Albumin Cancelled, CBC w Diff Cancelled, WBC Cancelled, RBC Cancelled, Hgb Cancelled, Hct Cancelled, MCV Cancelled, MCH Cancelled, MCHC Cancelled, RDW Cancelled, Plt Count Cancelled, MPV Cancelled Impression/Plan Impression/Plan Impression/Plan: 1. Acute hypercarbic respiratory failure, resolved. Probable obesity hypoventilation syndrome. 2. Status post elective right knee total arthroplasty. 3. Congestive heart failure, with increasing oxygen requirement. 4. Aspiration pneumonia, on IV Unasyn. 5. COPD. 6. Morbid obesity. Recommendations: * Check a chest x-ray today. * Check lower extremity Dopplers. * Continue anticoagulation at all times. * Continue diuresis. * Complete antibiotic course -changed to p.o. Augmentin if chest x-ray is improved without evidence of pneumonia. * TRC/neb treatments to continue. * Taper supplemental oxygen down for saturations greater than 92%. * Continue all supportive care.
--- NOTE | 2018-05-15 11:15 | RADIOLOGY REPORT ---
EXAMINATION: XR PORTABLE CHEST CLINICAL INFORMATION: Hypoxia. COMPARISON: Chest done on 05/13/2018. TECHNIQUE: Portable frontal view of the chest was obtained. FINDINGS: Both lungs are symmetrically expanded, appear clear. The cardiomediastinal silhouette is within normal limits. There is no pleural effusion present. The visualized upper abdomen is unremarkable. IMPRESSION: No radiographic evidence of acute cardiopulmonary disease.
[2018-05-15 14:00] VITALS: BP 144/70
--- NOTE | 2018-05-15 15:10 | Discharge Summary ---
Visit Information Visit Dates Admission Date: 05/11/18 Discharge Date: 05/19/2018 Hospital Course Course Attending Physician: Reagan Means MD Primary Care Physician: Nadege Cordova MD Wil[facility] Hospital Course: Ms. Rosen is an 82-year-old female with past medical history of COPD, diabetes mellitus, hypertension, hyperlipidemia, pulmonary hypertension, and severe osteoarthritis admitted to the hospital on 05/11/2018 for right knee arthroplasty. Her hospitalization is summarized as follows: Right total knee arthroplasty with postoperative acute hypercarbic respiratory failure with multifactorial etiologies including OHS, OANH, medication effects. She was admitted to the hospital for elective right total knee arthroplasty. However intraoperatively the patient had vomiting and dry heaving and desaturated into the 70s, noting she had an epidural for anesthesia administration. The patient received propofol, Duramorph and scopolamine. Because the patient was lethargic, an ABG was done that showed severe respiratory acidosis. CXR showed pulmonary edema. The patient was placed on BiPAP, given flumazenil and Narcan. She was also given Lasix 40 mg IV 1. The patient was transferred to the critical care unit for further assessment and treatment. She has been pancultured and started on empiric IV Unasyn. After monitoring the patient in the ICU, despite antiemetics, she continued to have significant vomiting. She could not tolerate BiPAP therapy due to the risk of aspiration. She was Postop day 3 elective right total knee arthroplasty with postoperative course complicated by hypercarbic respiratory failure initially treated with BiPAP and subsequently intubated for worsening respiratory acidosis and persistent vomiting, then extubated on 05/13/18. She was transferred to general medicine floor on 05/15/2018 after extubation. She has been requiring 3-4 L oxygen supplementation weaned off to 1L at the time of discharge. She did desaturate to 80s on ambulation, and was discharged with home oxygen. On 05/16 she had an episode of sinus tachycardia with EKG showing a picture consistent of afib vs MAT. She then converted on NSR on 05/17 and remained there for the rest of her hospitalization. Multi-organism aspiration pneumonia Her respiratory culture was growing H. influenzae, gram-negative rods, and staph aureus. She remained afebrile without leukocytosis on ampicillin/sulbactam and her respiratory status continued to improve. Swallow evaluation was also performed patient was initially on a honey thick diet with subsequent evaluation showed she could tolerate thin liquids. Chest x-ray on 05/15/2018 showed no acute cardiopulmonary process, no pneumonia. She was then switched to oral antibiotics, Augmentin to complete a full course. Patient also received nebulizers as needed. Status post elective right knee total arthroplasty Patient underwent elective right total knee arthroplasty on 05/11/2018. She tolerated procedure well. She was started on Lovenox 40 mg twice daily for DVT prophylaxis after surgery. She was advised to follow-up with ortho after discharge. She worked with physical therapy after surgery. physical therapy recommended acute rehab, however patient family refused to send her to rehab in spite of our recommendations that this would benefit her. Pulmonary edema Patient was also noted to have pulmonary edema upon admission to the ICU and was treated with IV Lasix. Cardiology evaluated an echocardiogram showed normal EF. She has been maintained on oral furosemide prn without signs of reaccumulation. pain management -Acetaminophen p.o. as needed -Per surgery, ketorolac 15 mg every 6 hours as needed severe pain Type 2 diabetes mellitus -Patient has history of type 2 diabetes mellitus, [id number] She was continued on insulin sliding scale The rest of her medications were continued: eliquis, amlodipine. On improvement of her symptoms, she was discharged with instructions to follow up with both cardiology and pulmunology on discharge, as well as on regular oral regimens. She received DVT prophylaxis with enoxaparin while inpatient She was on a regular diet She was a Full code Allergies: Coded Allergies: lisinopril (Intermediate, TONGUE SWELLS 01/31/16) Pertinent Lab Results: echo Normal size left ventricle. Mild concentric left ventricular hypertrophy. Grossly normal left ventricular systolic function. No obvious regional wall motion abnormalities. Mild left atrial dilatation. Mild mitral regurgitation. Mitral valve thickened. Mild tricuspid regurgitation. Right ventricular systolic pressure estimated to be elevated at 64 mmHg. Disposition Summary Disposition Principal Diagnosis: Acute hypercarbic respiratory failure Right total knee arthroplasty Status post extubation Obesity hypoventilation syndrome Additional Diagnosis: Pulmonary edema Aspiration pneumonia Discharge Disposition: SNF Discharge Instructions General Discharge Information Code Status: Full Code Patient's Diet: As tolerated Patient's Activity: As tolerated Follow-Up Instructions/Appts: Follow-up PCP in 1 week after discharge Follow-up Ortho in 1 week after discharge Follow-up cardiology in 1 week after discharge Follow-up pulmonology in 1 week after discharge Medications at Discharge Discharge Medications: Continue taking these medications: METFORMIN HCL (Metformin) 1,000 MG TABLET 1 Tablet ORAL TWICE DAILY Qty = 180 Glipizide (Glipizide ER) 5 MG TAB.ER.24 1 Tablet ORAL DAILY Comments: NOT GIVEN Pioglitazone HCl (Pioglitazone HCl) 30 MG TABLET 1 Tablet ORAL DAILY Comments: NOT GIVEN Simvastatin (Zocor) 20 MG TAB 1 Tablet ORAL Every night Aspirin (Aspirin*) 81 MG TAB.CHEW 1 Tablet ORAL DAILY Comments: Last Taken: 05/19/18 Time: 8:00 AM Furosemide (Lasix) 20 MG TABLET 1 Tablet ORAL DAILY Comments: Last Taken: 05/19/18 Time: 8:00 AM Glipizide (Glipizide) 5 MG TABLET 1 Tablet ORAL TWICE DAILY Qty = 60 Comments: NOT GIVEN Start taking the following new medications: Apixaban (Eliquis) 5 MG TABLET 1 Tablet ORAL TWICE DAILY Qty = 60 No Refills Comments: Last Taken: 05/19/18 Time: 8:00 AM The following medications have been changed: Old: Amlodipine Besylate (Amlodipine Besylate) 5 MG TABLET 1 Tablet ORAL DAILY New: Amlodipine Besylate (Amlodipine Besylate) 10 MG TABLET 1 Tablet ORAL DAILY Qty = 30 Comments: Last Taken: 05/19/18 Time: 8:00 AM Copies To: Mariam HENAO,Yesenia Shelton; Clary HENAO,Reagan; Carlos HENAO,Benji Attending Review Statement Documenting Attending: Mickey Epstein MD
--- NOTE | 2018-05-15 16:35 | ULTRASOUND REPORT ---
EXAMINATION: US TRIPLEX OF LOWER EXTREMITIES, BILATERAL CLINICAL INFORMATION: Shortness of breath, hypoxic. COMPARISON: None TECHNIQUE: Color-flow triplex imaging with spectral analysis and compression Doppler were performed on the lower extremities. FINDINGS: Respiratory variation, normal compression and augmented flow are noted throughout the lower extremities. The visualized common femoral vein, superficial femoral vein, profunda femoral vein, popliteal vein and midcalf peroneal and posterior tibial venous segments show no evidence of deep venous thrombosis. The right tibioperoneal trunk and peroneal veins are not well visualized. There is no Weiss's cyst. IMPRESSION: No evidence of deep venous thrombosis involving the bilateral lower extremities.
[2018-05-15 20:43] VITALS: BP 140/61
[2018-05-16 06:51] VITALS: BP 146/77
[2018-05-16 08:38] LABS: ABSOLUTE BASOPHIL COUNT 0 /CUMM (0.0-0.2); ABSOLUTE EOSINOPHIL COUNT 0.2 /CUMM (0.0-0.7); ABSOLUTE GRANULOCYTE CT 3.3 /CUMM (1.4-6.5); ABSOLUTE LYMPH COUNT 0.5 /CUMM (1.2-3.4); ABSOLUTE MONOCYTE COUNT 0.5 /CUMM (0.10-0.60); BASOPHIL % 0.2 % (0.0-2.0); EOSINOPHIL % 4.1 % (0-5); GRANULOCYTE % 73.5 % (42.2-75.2); HEMATOCRIT 30.7 % (37-47); MEAN CORPUSCULAR HGB 30.5 PG (27.0-31.0); MEAN CORPUSCULAR HGB CONC 33.5 G/DL (33.0-37.0); MEAN PLATELET VOLUME 9.2 FL (7.4-10.4); PLATELET COUNT 154 /CUMM (130-400); RBC DISTRIBUTION WIDTH 13.9 % (11.5-14.5); RED BLOOD CELL CT 3.37 /CUMM (4.20-5.40); WHITE BLOOD CELL COUNT 4.4 /CUMM (4.8-10.8)
--- NOTE | 2018-05-16 09:36 | PN- Housestaff ---
JaironHiginio 05/16/18 0936: Subjective Follow-up For: Acute hypercarbic respiratory failure Subjective: Patient seen and examined at bedside. She is complaining of mild shortness of breath. She is on 4 L of oxygen and maintaining saturation 94%. She denies any chest pain, shortness of breath, abdominal pain, diarrhea, constipation, burning micturition. Review of Systems Constitutional: Reports: see HPI. Objective Last 24 Hrs of Vital Signs/I&O Vital Signs Date Time Temp Pulse Resp B/P B/P Pulse O2 O2 Flow FiO2 Mean Ox Delivery Rate 05/16 1512 98.1 110 18 124/68 94 Nasal 4.0L Cannula 05/16 0820 94 Nasal 3.5L Cannula 05/16 0818 95 146/77 05/16 0800 94 Nasal 3.5L Cannula 05/16 0651 97.9 95 20 146/77 96 Nasal 3.5L Cannula 05/16 0000 Nasal 3.5L Cannula 05/15 2043 98.6 83 20 140/61 94 Nasal 3.5L Cannula 05/15 2001 94 Nasal 3.5L Cannula Intake & Output 05/16 1600 05/16 0800 05/16 0000 Intake Total 700 600 Output Total 300 375 300 Balance 400 -375 300 Intake, IV 700 Intake, Oral 600 Number 1 Bowel Movements Output, Urine 300 375 300 Physical Exam General Appearance: Alert, Oriented X3, Cooperative, No Acute Distress Cardiovascular: Normal S1, Normal S2 Lungs: Clear to Auscultation, Normal Air Movement Abdomen: Normal Bowel Sounds, Soft, No Tenderness, No Hepatospenomegaly, No Masses Neurological: Normal Speech, Normal Tone, Sensation Intact, Reflexes 2+ Extremities: No Clubbing, No Cyanosis, No Edema, Normal Pulses, No Tenderness/ Swelling Assessment/Plan Assessment: Ms. Rosen is an 82-year-old female with past medical history of COPD, diabetes mellitus, hypertension, hyperlipidemia, and severe osteoarthritis postop day 3 elective right total knee arthroplasty with postoperative course complicated by hypercarbic respiratory failure secondary to oversedation initially treated with BiPAP and subsequently intubated for worsening respiratory acidosis and persistent vomiting, then extubated on 05/13/18. She was transferred to the [facility] service after intubation Problem list: * Acute hypercarbic respiratory failure secondary to oversedation after surgery * Status post elective right knee total arthroplasty * Pulmonary edema * H influenza pneumonia * History of CHF, diabetes mellitus, nausea vomiting, Plan: Hypercarbic Respiratory Failure: -Patient shifted after right knee arthroplasty status post intubation -He got respiratory depression due to narcotics overdose -She is on 4 L oxygen to maintain oxygen saturation 94% -Please taper up on oxygen supplementation -Pulmonology recommendation appreciated today she did not recommend anything new sub-supportive care H. influenzae pneumonia; -Patient is on oral Augmentin for H. influenzae pneumonia for monitor for further -She having no fever and no leukocytosis currently History of CHF: -There is no notes from cardiology so far -She is on amlodipine 5 mg -She is on Lasix 20 mg daily -X-rays negative for any pulmonary edema -Chest is clear -Echo is awaited -Strict I's and Os Nausea and Vomiting -She is no more complaining of nausea and vomiting History of DM: -She is on insulin sliding scale -Home medication is on hold -Last Accu-Chek sugar is 240 Post op Total Knee arthroplasty -Patient postop day 5 total knee arthroplasty -Therapeutic enoxaparin to avoid pulmonary embolism Acute tachycardia: Patient having acute tachycardia heart rate is almost 100 EKG was suspected for A. fib versus MAT Patient shifted to telemetry for further management DVT prophylaxis enoxaparin Full code Problem List: 1. Acute hypercapnic respiratory failure Pain Ratin Pain Location: No pain Pain Goal: Remain pain free Pain Plan: Pain management pathway Tomorrow's Labs & Rationales: chaz Henderson MD,[facility] 05/16/18 1222: Attending MD Review Statement Attending Statement Attending MD Statement: examined this patient, discuss w/resident/PA/[employer], agreed w/resident/PA/[employer], reviewed EMR data (avail), discussed with nursing, amended to note Attending Assessment/Plan: Patient seen and examined. Each are reviewed resting comfortably not in acute distress at present. Denies any pain. She is eager to be discharged home. She however continues to require about 3 L oxygen to maintain saturation. She admits to shortness of breath with exertion but then states that she is short of breath all the time. On examination there is no use of accessory muscles. She has diminished breath sounds bilaterally with mild diffuse wheezing. Abdomen is soft and nontender. She has bilateral pedal edema. Recommendations: -Continue diuresis with Lasix. -Wean down oxygen supplementation as tolerated -Continue physical therapy as tolerated. -She may be discharged home if cleared by physical therapy and once weaned off oxygen supplementation
[2018-05-16 15:12] VITALS: BP 124/68
--- NOTE | 2018-05-16 15:17 | PN- Pulmonary ---
Subjective HPI/Critical Care Issues: The patient is awake and alert. She is feeling better overall. She is less short of breath. She denies any chest pain. There were no overnight events reported. Objective Current Medications: Current Medications Sig/Olivier Start time Last Medication Dose Route Stop Time Status Admin Acetaminophen 1,000 MG Q8P PRN 05/14 0715 AC 05/15 PO 1639 Albuterol Sulfate 3 ML EVERY 4 HRS/AWAKE 05/12 1623 AC 05/16 INH 1258 Amlodipine Besylate 5 MG DAILY 05/16 0900 AC 05/16 PO 0818 Amoxicillin/ 875 MG Q12H 05/16 0500 AC 05/16 Clavulanate Potassium PO 0510 Amoxicillin/ 875 MG Q12 05/15 1345 DC 05/15 Clavulanate Potassium PO 1639 Enoxaparin Sodium 30 MG BID 05/12 2100 AC 05/16 SC 0818 Furosemide 20 MG DAILY 05/13 0900 AC 05/16 PO 0818 Insulin Aspart 0 TIDAC 05/14 0800 AC 05/16 SC 1249 Ketorolac 15 MG Q6-PRN PRN 05/12 0830 AC 05/16 Tromethamine IV 1208 Trimethobenzamide HCl 200 MG 4 TIMES/DAY PRN 05/11 1545 AC IM Vital Signs & I&O Last 24 Hrs of Vitals and I&O: Vital Signs Date Time Temp Pulse Resp B/P B/P Pulse O2 O2 Flow FiO2 Mean Ox Delivery Rate 05/16 0820 94 Nasal 3.5L Cannula 05/16 0818 95 146/77 05/16 0800 94 Nasal 3.5L Cannula 05/16 0651 97.9 95 20 146/77 96 Nasal 3.5L Cannula 05/16 0000 Nasal 3.5L Cannula 05/15 2043 98.6 83 20 140/61 94 Nasal 3.5L Cannula 05/15 2001 94 Nasal 3.5L Cannula 05/15 1600 94 Nasal 3.5L Cannula Intake & Output 05/16 1600 05/16 0800 05/16 0000 Intake Total 600 Output Total 375 300 Balance -375 300 Intake, Oral 600 Output, Urine 375 300 Exam General Appearance: alert, awake, comfortable Head: atraumatic Neck: supple Respiratory: no respiratory distress, decreased breath sounds, crackles, rhonchi Cardiovascular: distant heart sounds Abdomen: normal bowel sounds, soft, non-tender Skin: intact, warm/dry Results Last 24 Hrs of Lab Results: Laboratory Tests 05/16/18 0646: Anion Gap 5, Estimated GFR > 60, BUN/Creatinine Ratio 20.0, CBC w Diff NO MAN DIFF REQ, RBC 3.37 L, MCV 91.0, MCH 30.5, MCHC 33.5, RDW 13.9, MPV 9.2, Gran % 73.5, Lymphocytes % 11.0 L, Monocytes % 11.2 H, Eosinophils % 4.1, Basophils % 0.2, Absolute Granulocytes 3.3, Absolute Lymphocytes 0.5 L, Absolute Monocytes 0.5, Absolute Eosinophils 0.2, Absolute Basophils 0 Diagnostic Data CXR Findings: No acute findings. US Findings: Negative for DVT. Impression/Plan Impression/Plan Impression/Plan: 1. Acute hypercarbic respiratory failure, resolved. Probable obesity hypoventilation syndrome. 2. Status post elective right knee total arthroplasty. 3. Congestive heart failure, with increasing oxygen requirement. 4. Aspiration pneumonia, on IV Unasyn. 5. COPD. 6. Morbid obesity. Recommendations: * Continue anticoagulation at all times. * Continue diuresis. * Complete antibiotic course. * TRC/neb treatments to continue. * Incentive spirometry. * Increase activity - PT for ambulation. * Taper supplemental oxygen down for saturations greater than 92%. * Continue all supportive care.
--- NOTE | 2018-05-16 17:18 | Event Note ---
Event Note Event Note: Situation Patient found to be tachycardic with an irregular pulse Background 82-year-old woman with multiple medical problems admitted for a total knee arthroplasty complicated by intraoperative emesis for which she was transferred to the intensive care unit for respiratory support. She was subsequently downgraded to the general medicine floor where she was monitored Assessment/Recommendations Stat EKG demonstrated a narrow complex irregularly irregular tachycardic rhythm with features suggestive of multifocal atrial tachycardia versus atrial fibrillation. Patient is anticoagulated with Lovenox. These findings were discussed with steamer blocker Dr. Lopez whom recommended transitioning anticoagulation to intravenous heparin and transferred to the telemetry floor for ongoing telemetry monitoring.
--- NOTE | 2018-05-16 22:39 | Event Note ---
Event Note Event Note: Subjective: I was called by the rest of the patient having heart rate more than 100 and this is something new for her. She has been no complaint of chest pain, palpitation, shortness of breath, syncope Background: Patient having past medical history of CHF, H influenza pneumonia, right knee osteoarthritis status post right knee replacement, she developed hyperbaric respiratory failure for which she was intubated and was admitted to ICU. She shifted from ICU to general medical floor for follow-up.... Assessment and plan: I ordered EKG on the patient. EKG having significant finding for A. fib versus MAT Case discussed with Dr. Perez and shifted to telemetry for further management. Troponin order
--- NOTE | 2018-05-16 22:42 | PN- Cardiology ---
Subjective Subjective: Patient was noted to be tachycardic with an irregular pulse. EKG was performed which revealed evidence of atrial fibrillation. The patient was transferred to telemetry for further evaluation. She noted mild palpitations. No chest pain. No shortness of breath. No diaphoresis. Objective Vital Signs and I&Os Vital Signs Date Time Temp Pulse Resp B/P B/P Pulse O2 O2 Flow FiO2 Mean Ox Delivery Rate 05/16 1635 93 Nasal 2.5L Cannula 05/16 1512 98.1 110 18 124/68 94 Nasal 4.0L Cannula 05/16 0820 94 Nasal 3.5L Cannula 05/16 0818 95 146/77 05/16 0800 94 Nasal 3.5L Cannula 05/16 0651 97.9 95 20 146/77 96 Nasal 3.5L Cannula 05/16 0000 Nasal 3.5L Cannula Intake & Output 05/16 1600 05/16 0800 05/16 0000 05/15 1600 05/15 0800 05/15 0000 Intake Total 700 600 770 360 360 Output Total 300 375 300 500 400 250 Balance 400 -375 300 270 -40 110 Intake, IV 700 150 120 120 Intake, Oral 600 620 240 240 Number 1 1 0 0 Bowel Movements Output, Urine 300 375 300 500 400 250 Physical Exam: Gen: NAD HEENT: normal Lungs: clear to auscultation, normal resp. effort Heart: Regular rate, S1, S2, no murmurs Abdomen: Soft, nontender, no masses Extremities: No clubbing, cyanosis, or edema. Neuro: Alert and oriented x 3, cranial nerves intact Current Medications: Current Medications Sig/Olivier Start time Last Medication Dose Route Stop Time Status Admin Acetaminophen 1,000 MG Q8P PRN 05/14 0715 AC 05/15 PO 1639 Albuterol Sulfate 3 ML EVERY 4 HRS/AWAKE 05/12 1623 AC 05/16 INH 2020 Amlodipine Besylate 5 MG DAILY 05/16 09 AC 05/16 PO 0818 Amoxicillin/ 875 MG Q12H 05/16 0500 AC 05/16 Clavulanate Potassium PO 1800 Enoxaparin Sodium 30 MG BID 05/12 2100 DC 05/16 SC 0818 Furosemide 20 MG DAILY 05/13 09 AC 05/16 PO 0818 Heparin Sodium/ 25,000 UNIT Q24H 05/16 1730 AC 05/16 Dextrose IV 2101 Dextrose/Water 500 ML Insulin Aspart 0 TIDAC 05/14 0800 05/16 SC 1249 Ketorolac 15 MG Q6-PRN PRN 05/12 0830 AC 05/16 Tromethamine IV 1208 Trimethobenzamide HCl 200 MG 4 TIMES/DAY PRN 05/11 1545 AC IM Results Last 48 Hrs of Labs/Mics: Laboratory Tests 05/16/18 0646: Anion Gap 5, Estimated GFR > 60, BUN/Creatinine Ratio 20.0, CBC w Diff NO MAN DIFF REQ, RBC 3.37 L, MCV 91.0, MCH 30.5, MCHC 33.5, RDW 13.9, MPV 9.2, Gran % 73.5, Lymphocytes % 11.0 L, Monocytes % 11.2 H, Eosinophils % 4.1, Basophils % 0.2, Absolute Granulocytes 3.3, Absolute Lymphocytes 0.5 L, Absolute Monocytes 0.5, Absolute Eosinophils 0.2, Absolute Basophils 0 05/15/18 0858: Urine Color Cancelled, Urine Clarity Cancelled, Urine pH Cancelled, Ur Specific [place] Cancelled, Urine Protein Cancelled, Urine Ketones Cancelled, Urine Nitrite Cancelled, Urine Bilirubin Cancelled, Urine Urobilinogen Cancelled, Ur Leukocyte Esterase Cancelled, Ur Microscopic Cancelled, Urine Hemoglobin Cancelled, Urine Glucose Cancelled 05/15/18 0704: Anion Gap 4 L, Estimated GFR > 60, BUN/Creatinine Ratio 22.9, Calcium 8.0 L, Phosphorus 3.3, Albumin 3.2 L, CBC w Diff NO MAN DIFF REQ, RBC 3.51 L, MCV 92.2, MCH 30.4, MCHC 33.0, RDW 14.8 H, MPV 9.5, Gran % 80.0 H, Lymphocytes % 9.3 L, Monocytes % 8.6, Eosinophils % 1.8, Basophils % 0.3, Absolute Granulocytes 4.1, Absolute Lymphocytes 0.5 L, Absolute Monocytes 0.4, Absolute Eosinophils 0.1, Absolute Basophils 0 05/15/18 0400: Sodium Cancelled, Potassium Cancelled, Chloride Cancelled, Carbon Dioxide Cancelled, Anion Gap Cancelled, BUN Cancelled, Creatinine Cancelled, Glucose Cancelled, Calcium Cancelled, Phosphorus Cancelled, Magnesium Cancelled, Total Bilirubin Cancelled, AST Cancelled, ALT Cancelled, Albumin Cancelled, CBC w Diff Cancelled, WBC Cancelled, RBC Cancelled, Hgb Cancelled, Hct Cancelled, MCV Cancelled, MCH Cancelled, MCHC Cancelled, RDW Cancelled, Plt Count Cancelled, MPV Cancelled Assessment/Plan Assessment/Plan Assessment: 1. Postoperative pulmonary edema-improved 2. Day #3 post knee replacement surgery 3. Diabetes 4. Hypertension 5. Mild acute renal failure 6. Normocytic anemia-slightly worse today 7. Pulmonary hypertension 8. New onset atrial fibrillation Plan: * Transfer to telemetry floor for further monitoring of paroxysmal atrial fibrillation * IV heparin * Continue cardiac medications * Check basic metabolic profile, TSH, CVC, and troponin Continue telemetry? Yes
[2018-05-16 23:14] VITALS: BP 128/70
[2018-05-17 03:23] LABS: ABSOLUTE BASOPHIL COUNT 0 /CUMM (0.0-0.2); ABSOLUTE EOSINOPHIL COUNT 0.1 /CUMM (0.0-0.7); ABSOLUTE LYMPH COUNT 0.6 /CUMM (1.2-3.4); ABSOLUTE MONOCYTE COUNT 0.5 /CUMM (0.10-0.60); BASOPHIL % 0.4 % (0.0-2.0); EOSINOPHIL % 2.1 % (0-5); GRANULOCYTE % 71.6 % (42.2-75.2); HEMATOCRIT 30.9 % (37-47); MEAN CORPUSCULAR HGB 29.9 PG (27.0-31.0); MEAN CORPUSCULAR HGB CONC 32.8 G/DL (33.0-37.0); MEAN CORPUSCULAR VOLUME 91.2 FL (81.0-99.0); MEAN PLATELET VOLUME 8.9 FL (7.4-10.4); PLATELET COUNT 167 /CUMM (130-400); RBC DISTRIBUTION WIDTH 13.9 % (11.5-14.5); RED BLOOD CELL CT 3.39 /CUMM (4.20-5.40); WHITE BLOOD CELL COUNT 4.2 /CUMM (4.8-10.8)
[2018-05-17 03:32] LABS: PTT 38 SEC (25-37)
[2018-05-17 06:45] VITALS: BP 170/77
--- NOTE | 2018-05-17 08:42 | PN- Housestaff ---
Dwayne Linda 05/17/18 0842: Subjective Follow-up For: Acute hypercarbic respiratory failure Presumed MAT on EKG Complaints: no complaints Subjective: Patient seen and examined at the bedside. Demonstrably having shortness of breath. On 4 L of oxygen, maintaining saturation. Denies any pain. Denies fever/chills/night sweats/chest pain/abdominal pain/urinary symptoms. Review of Systems Constitutional: Reports: no symptoms. Objective Last 24 Hrs of Vital Signs/I&O Vital Signs Date Time Temp Pulse Resp B/P B/P Pulse O2 O2 Flow FiO2 Mean Ox Delivery Rate 05/17 1326 84 170/77 05/17 0810 94 Nasal 2.5L Cannula 05/17 0800 95 Nasal 2.0L Cannula 05/17 0711 84 17005/17 0645 98.2 87 20 96 Room Air 05/17 0000 Nasal 2.0L Cannula 05/16 2314 98.2 88 16 128/70 96 05/16 1635 93 Nasal 2.5L Cannula 05/16 1512 98.1 110 18 124/68 94 Nasal 4.0L Cannula Intake & Output 05/17 1600 05/17 0800 05/17 0000 Intake Total 346.4 146 Output Total 600 Balance -253.6 146 Intake, IV 226.4 26 Intake, Oral 120 120 Number 1 Bowel Movements Output, Urine 600 Physical Exam General Appearance: Alert, Oriented X3, Cooperative, Mild Distress Cardiovascular: Regular Rate, Normal S1, Normal S2, No Murmurs, Gallops, Rubs Lungs: Clear to Auscultation, Normal Air Movement Abdomen: Normal Bowel Sounds, Soft, No Tenderness, No Hepatospenomegaly, No Masses Neurological: Normal Speech, Strength at 5/5 X4 Ext, Normal Tone, Sensation Intact Extremities: No Clubbing, No Cyanosis, No Edema Current Medications: Current Medications Sig/Olivier Start time Last Medication Dose Route Stop Time Status Admin Acetaminophen 1,000 MG Q8P PRN 05/14 0715 AC 05/15 PO 1639 Albuterol Sulfate 3 ML EVERY 4 HRS/AWAKE 05/12 1623 AC 05/17 INH 1147 Amlodipine Besylate 10 MG DAILY 05/18 0900 AC PO Amlodipine Besylate 5 MG ONCE ONE 05/17 1315 DC 05/17 PO 05/17 1316 1326 Amlodipine Besylate 5 MG DAILY 05/16 0900 SD 05/17 PO 0711 Amoxicillin/ 875 MG Q12H 05/16 0500 05/17 Clavulanate Potassium PO 0519 Apixaban 5 MG BID 05/17 1231 AC 05/17 PO 1326 Enoxaparin Sodium 30 MG BID 05/12 2100 SD 05/16 SC 0818 Furosemide 20 MG DAILY 05/13 0900 AC 05/17 PO 0930 Heparin Sodium 8,625 UNIT ONCE ONE 05/17 0415 DC 05/17 (Porcine) IV 05/17 041 0417 Heparin Sodium/ 25,000 UNIT Q24H 05/16 1730 SD 05/16 Dextrose IV 2101 Dextrose/Water 500 ML Insulin Aspart 0 TIDAC 05/14 0800 05/17 SC 1247 Ketorolac 15 MG Q6-PRN PRN 05/12 0830 05/16 Tromethamine IV 1208 Trimethobenzamide HCl 200 MG 4 TIMES/DAY PRN 05/11 1545 AC IM Last 24 Hrs of Lab/Emanuel Results Last 24 Hrs of Labs/Mics: Laboratory Tests 05/17/18 1025: APTT 95 H 05/17/18 0250: Anion Gap 4 L, Estimated GFR > 60, BUN/Creatinine Ratio 16.3, Magnesium 1.8, TSH 2.080, APTT 38 H, CBC w Diff NO MAN DIFF REQ, RBC 3.39 L, MCV 91.2, MCH 29.9, MCHC 32.8 L, RDW 13.9, MPV 8.9, Gran % 71.6, Lymphocytes % 14.8 L, Monocytes % 11.1 H, Eosinophils % 2.1, Basophils % 0.4, Absolute Granulocytes 3.0, Absolute Lymphocytes 0.6 L, Absolute Monocytes 0.5, Absolute Eosinophils 0.1, Absolute Basophils 0 05/17/18 0240: Urinalysis MOD H, Urine Color YEL, Urine Clarity CLEAR, Urine pH 6.0, Ur Specific [place] 1.025, Urine Protein NEG, Urine Ketones NEG, Urine Nitrite NEG, Urine Bilirubin NEG, Urine Urobilinogen 0.2, Ur Leukocyte Esterase NEG, Ur Microscopic SEDIMENT EXAMINED, Urine RBC 1-3, Urine WBC 1-3 H, Ur Epithelial Cells MOD H, Urine Hemoglobin SMALL H, Urine Glucose NEG 05/16/18 2305: Troponin I < 0.01 Microbiology 05/17 0240 URINE ROUT: Urine Culture - RECD Assessment/Plan Assessment: Ms. Rosen is an 82-year-old female with past medical history of COPD, diabetes mellitus, hypertension, hyperlipidemia, and severe osteoarthritis postop day 3 elective right total knee arthroplasty with postoperative course complicated by hypercarbic respiratory failure secondary to oversedation initially treated with BiPAP and subsequently intubated for worsening respiratory acidosis and persistent vomiting, then extubated on 05/13/18. She was transferred to the [facility] service after extubation, and then to telemetry on 05/16 for telemetry monitoring Problem list: * Acute hypercarbic respiratory failure secondary to oversedation after surgery * Status post elective right knee total arthroplasty * Pulmonary edema * H influenza pneumonia * History of CHF, diabetes mellitus, nausea vomiting, Plan: Hypercarbic Respiratory Failure: -Patient shifted after right knee arthroplasty status post intubation -He got respiratory depression due to narcotics overdose -She is on 4 L oxygen to maintain oxygen saturation 94% -Please taper up on oxygen supplementation -Pulmonology recommendation appreciated today she did not recommend anything new sub-supportive care H. influenzae pneumonia; -Patient is on oral Augmentin for H. influenzae pneumonia for monitor for further -She having no fever and no leukocytosis currently History of CHF: -There is no notes from cardiology so far -She is on amlodipine 5 mg -She is on Lasix 20 mg daily -X-rays negative for any pulmonary edema -Chest is clear -Echo is awaited -Strict I's and Os Nausea and Vomiting -She is no more complaining of nausea and vomiting History of DM: Ms. Rosen is an 82-year-old female with past medical history of COPD, diabetes mellitus, hypertension, hyperlipidemia, and severe osteoarthritis postop day 3 elective right total knee arthroplasty with postoperative course complicated by hypercarbic respiratory failure secondary to oversedation initially treated with BiPAP and subsequently intubated for worsening respiratory acidosis and persistent vomiting, then extubated on 05/13/18. She was transferred to the [facility] service after intubation Problem list: * Acute hypercarbic respiratory failure secondary to oversedation after surgery * Status post elective right knee total arthroplasty * Pulmonary edema * H influenza pneumonia * History of CHF, diabetes mellitus, nausea vomiting, Plan: Hypercarbic Respiratory Failure: -Patient shifted after right knee arthroplasty status post intubation -He got respiratory depression due to narcotics overdose -She is on 4 L oxygen to maintain oxygen saturation 94% -Please taper up on oxygen supplementation -Pulmonology recommendation appreciated today she did not recommend anything new sub-supportive care H. influenzae pneumonia; -Patient is on oral Augmentin for H. influenzae pneumonia for monitor for further -She having no fever and no leukocytosis currently History of CHF: -There is no notes from cardiology so far -She is on amlodipine 5 mg -She is on Lasix 20 mg daily -X-rays negative for any pulmonary edema -Chest is clear -Echo shows no abnormalities -Strict I's and Os Nausea and Vomiting -She is no more complaining of nausea and vomiting History of DM: -She is on insulin sliding scale -Home medication is on hold -Accucheck tidac Post op Total Knee arthroplasty -Patient postop day 5 total knee arthroplasty -Therapeutic enoxaparin to avoid pulmonary embolism Acute tachycardia: Patient having acute tachycardia heart rate is almost 100 EKG was suspected for A. fib versus MAT Patient shifted to telemetry for further management DVT prophylaxis enoxaparin Full code -She is on insulin sliding scale -Home medication is on hold Post op Total Knee arthroplasty -Patient postop day 5 total knee arthroplasty -Therapeutic enoxaparin to avoid pulmonary embolism Acute tachycardia: Patient having acute tachycardia heart rate is almost 100 EKG was suspected for A. fib versus MAT Patient shifted to telemetry for further management on 05/16 DVT prophylaxis enoxaparin Full code Problem List: 1. Acute hypercapnic respiratory failure Pain Ratin Pain Location: none Pain Goal: Remain pain free Pain Plan: per pathway Tomorrow's Labs & Rationales: chaz Henderson MD,Corina 05/17/18 1312: Attending MD Review Statement Attending Statement Attending MD Statement: examined this patient, discuss w/resident/PA/DIALYSIS RN, agreed w/resident/PA/DIALYSIS RN, reviewed EMR data (avail), discussed with nursing, discussed with case mgmt, amended to note Attending Assessment/Plan: Family. Monitor reviewed. She was noted to tachycardic yesterday. EKG was suggestive of atrial fibrillation and she was transferred to the telemetry unit for further monitoring. She is currently back in sinus rhythm. She remains asymptomatic. Denies chest or shortness of breath. Denies palpitations. Cardiology evaluation appreciated. She will be anticoagulated with Eliquis. She is on Norvasc for blood pressure control. She is currently in normal sinus rhythm. If he becomes tachycardic again she may be transitioned to diltiazem for rate control. Continue to wean off oxygen supplementation as tolerated.
--- NOTE | 2018-05-17 11:31 | PN- Cardiology ---
Subjective Subjective: Feeling well. No chest pain. No palpitations. No diaphoresis. No nausea or vomiting. Objective Vital Signs and I&Os Vital Signs Date Time Temp Pulse Resp B/P B/P Pulse O2 O2 Flow FiO2 Mean Ox Delivery Rate 05/17 0810 94 Nasal 2.5L Cannula 05/17 0800 95 Nasal 2.0L Cannula 05/17 0711 84 170/77 05/17 0645 98.2 87 20 170/77 96 Room Air 05/17 0000 Nasal 2.0L Cannula 05/16 2314 98.2 88 16 128/70 96 05/16 1635 93 Nasal 2.5L Cannula 05/16 1512 98.1 110 18 124/68 94 Nasal 4.0L Cannula Intake & Output 05/17 1600 05/17 0800 05/17 0000 05/16 1600 05/16 0800 05/16 0000 Intake Total 346.4 146 700 600 Output Total 600 300 375 300 Balance -253.6 146 400 -375 300 Intake, IV 226.4 26 700 Intake, Oral 120 120 600 Number 1 1 Bowel Movements Output, Urine 600 300 375 300 Physical Exam: Gen: NAD HEENT: normal Lungs: clear to auscultation, normal resp. effort Heart: irregular, S1, S2, 1/6 systolic murmur Abdomen: Soft, nontender, no masses Extremities: No clubbing, cyanosis, or edema. Neuro: Alert and oriented x 3, cranial nerves intact Current Medications: Current Medications Sig/Olivier Start time Last Medication Dose Route Stop Time Status Admin Acetaminophen 1,000 MG Q8P PRN 05/14 0715 05/15 PO 1639 Albuterol Sulfate 3 ML EVERY 4 HRS/AWAKE 05/12 1623 AC 05/17 INH 0802 Amlodipine Besylate 5 MG DAILY 05/16 09 AC 05/17 PO 0711 Amoxicillin/ 875 MG Q12H 05/16 0500 05/17 Clavulanate Potassium PO 0519 Enoxaparin Sodium 30 MG BID 05/12 2100 MD 05/16 SC 0818 Furosemide 20 MG DAILY 05/13 09 AC 05/17 PO 0930 Heparin Sodium 8,625 UNIT ONCE ONE 05/17 0415 DC 05/17 (Porcine) IV 05/17 0416 0417 Heparin Sodium/ 25,000 UNIT Q24H 05/16 1730 05/16 Dextrose IV 2101 Dextrose/Water 500 ML Insulin Aspart 0 TIDAC 05/14 0800 AC 05/16 SC 1249 Ketorolac 15 MG Q6-PRN PRN 05/12 0830 AC 05/16 Tromethamine IV 1208 Trimethobenzamide HCl 200 MG 4 TIMES/DAY PRN 05/11 1545 AC IM Results Last 48 Hrs of Labs/Mics: Laboratory Tests 05/17/18 1025: APTT Pending 05/17/18 0250: Anion Gap 4 L, Estimated GFR > 60, BUN/Creatinine Ratio 16.3, Magnesium 1.8, TSH 2.080, APTT 38 H, CBC w Diff NO MAN DIFF REQ, RBC 3.39 L, MCV 91.2, MCH 29.9, MCHC 32.8 L, RDW 13.9, MPV 8.9, Gran % 71.6, Lymphocytes % 14.8 L, Monocytes % 11.1 H, Eosinophils % 2.1, Basophils % 0.4, Absolute Granulocytes 3.0, Absolute Lymphocytes 0.6 L, Absolute Monocytes 0.5, Absolute Eosinophils 0.1, Absolute Basophils 0 05/17/18 0240: Urinalysis MOD H, Urine Color YEL, Urine Clarity CLEAR, Urine pH 6.0, Ur Specific [place] 1.025, Urine Protein NEG, Urine Ketones NEG, Urine Nitrite NEG, Urine Bilirubin NEG, Urine Urobilinogen 0.2, Ur Leukocyte Esterase NEG, Ur Microscopic SEDIMENT EXAMINED, Urine RBC 1-3, Urine WBC 1-3 H, Ur Epithelial Cells MOD H, Urine Hemoglobin SMALL H, Urine Glucose NEG 05/16/18 2305: Troponin I < 0.01 05/16/18 0646: Anion Gap 5, Estimated GFR > 60, BUN/Creatinine Ratio 20.0, CBC w Diff NO MAN DIFF REQ, RBC 3.37 L, MCV 91.0, MCH 30.5, MCHC 33.5, RDW 13.9, MPV 9.2, Gran % 73.5, Lymphocytes % 11.0 L, Monocytes % 11.2 H, Eosinophils % 4.1, Basophils % 0.2, Absolute Granulocytes 3.3, Absolute Lymphocytes 0.5 L, Absolute Monocytes 0.5, Absolute Eosinophils 0.2, Absolute Basophils 0 Assessment/Plan Assessment/Plan Assessment: 1. Postoperative pulmonary edema-improved 2. Day #3 post knee replacement surgery 3. Diabetes 4. Hypertension 5. Mild acute renal failure 6. Normocytic anemia-slightly worse today 7. Pulmonary hypertension 8. Paroxysmal atrial fibrillation, now in sinus rhythm Plan: * Would start Eliquis 5 mg p.o. twice daily, or can start warfarin if preferred by ortho * Continue to monitor for recurrence of atrial fibrillator * Increase amlodipine to 10 mg p.o. daily for blood pressure control. If there is recurrence of rapid ventricular rate, would consider changing amlodipine to diltiazem Continue telemetry? Yes
[2018-05-17 11:55] LABS: PTT 95 SEC (25-37)
--- NOTE | 2018-05-17 14:20 | PN- Pulmonary ---
Subjective HPI/Critical Care Issues: The patient was sleeping comfortably initially, then arousable. She appears comfortable without shortness of breath. The patient's oxygen saturation has improved, noting she is 94-95% on 2.5 L. She was transferred to the telemetry floor for an abnormal EKG. The patient was started on heparin. She is in normal sinus rhythm with ventricular ectopy at the present time. Objective Current Medications: Current Medications Sig/Olivier Start time Last Medication Dose Route Stop Time Status Admin Acetaminophen 1,000 MG Q8P PRN 05/14 0715 AC 05/15 PO 1639 Albuterol Sulfate 3 ML EVERY 4 HRS/AWAKE 05/12 1623 AC 05/17 INH 1147 Amlodipine Besylate 10 MG DAILY 05/18 0900 AC PO Amlodipine Besylate 5 MG ONCE ONE 05/17 1315 DC 05/17 PO 05/17 1316 1326 Amlodipine Besylate 5 MG DAILY 05/16 0900 DC 05/17 PO 0711 Amoxicillin/ 875 MG Q12H 05/16 0500 AC 05/17 Clavulanate Potassium PO 0519 Apixaban 5 MG BID 05/17 1231 AC 05/17 PO 1326 Enoxaparin Sodium 30 MG BID 05/12 2100 DC 05/16 SC 0818 Furosemide 20 MG DAILY 05/13 0900 AC 05/17 PO 0930 Heparin Sodium 8,625 UNIT ONCE ONE 05/17 0415 DC 05/17 (Porcine) IV 05/17 0416 0417 Heparin Sodium/ 25,000 UNIT Q24H 05/16 1730 DC 05/16 Dextrose IV 2101 Dextrose/Water 500 ML Insulin Aspart 0 TIDAC 05/14 0800 AC 05/17 SC 1247 Ketorolac 15 MG Q6-PRN PRN 05/12 0830 AC 05/16 Tromethamine IV 1208 Trimethobenzamide HCl 200 MG 4 TIMES/DAY PRN 05/11 1545 AC IM Vital Signs & I&O Last 24 Hrs of Vitals and I&O: Vital Signs Date Time Temp Pulse Resp B/P B/P Pulse O2 O2 Flow FiO2 Mean Ox Delivery Rate 05/17 1326 84 170/77 05/17 0810 94 Nasal 2.5L Cannula 05/17 0800 95 Nasal 2.0L Cannula 05/17 0711 84 170/77 05/17 0645 98.2 87 20 96 Room Air 05/17 0000 Nasal 2.0L Cannula 05/16 2314 98.2 88 16 128/70 96 05/16 1635 93 Nasal 2.5L Cannula 05/16 1512 98.1 110 18 124/68 94 Nasal 4.0L Cannula Intake & Output 05/17 1600 05/17 0800 05/17 0000 Intake Total 346.4 146 Output Total 600 Balance -253.6 146 Intake, IV 226.4 26 Intake, Oral 120 120 Number 1 Bowel Movements Output, Urine 600 Exam General Appearance: alert, awake, comfortable Head: atraumatic Neck: supple Respiratory: no respiratory distress, decreased breath sounds, crackles, rhonchi Cardiovascular: distant heart sounds Abdomen: normal bowel sounds, soft, non-tender Skin: intact, warm/dry Results Last 24 Hrs of Lab Results: Laboratory Tests 05/17/18 1025: APTT 95 H 05/17/18 0250: Anion Gap 4 L, Estimated GFR > 60, BUN/Creatinine Ratio 16.3, Magnesium 1.8, TSH 2.080, APTT 38 H, CBC w Diff NO MAN DIFF REQ, RBC 3.39 L, MCV 91.2, MCH 29.9, MCHC 32.8 L, RDW 13.9, MPV 8.9, Gran % 71.6, Lymphocytes % 14.8 L, Monocytes % 11.1 H, Eosinophils % 2.1, Basophils % 0.4, Absolute Granulocytes 3.0, Absolute Lymphocytes 0.6 L, Absolute Monocytes 0.5, Absolute Eosinophils 0.1, Absolute Basophils 0 05/17/18 0240: Urinalysis MOD H, Urine Color YEL, Urine Clarity CLEAR, Urine pH 6.0, Ur Specific [place] 1.025, Urine Protein NEG, Urine Ketones NEG, Urine Nitrite NEG, Urine Bilirubin NEG, Urine Urobilinogen 0.2, Ur Leukocyte Esterase NEG, Ur Microscopic SEDIMENT EXAMINED, Urine RBC 1-3, Urine WBC 1-3 H, Ur Epithelial Cells MOD H, Urine Hemoglobin SMALL H, Urine Glucose NEG 05/16/18 2305: Troponin I < 0.01 Impression/Plan Impression/Plan Impression/Plan: 1. Acute hypercarbic respiratory failure, resolved. Probable obesity hypoventilation syndrome. 2. Status post elective right knee total arthroplasty. 3. Congestive heart failure, with increasing oxygen requirement. 4. Aspiration pneumonia, on IV Unasyn. 5. COPD. 6. Morbid obesity. 7. Contraction alkalosis in the setting of diuresis and chronic hypercarbic respiratory failure. Recommendations: * Continue anticoagulation -Eliquis versus Coumadin as per primary team. * Continue diuresis. * Complete antibiotic course. * TRC/neb treatments to continue. * Incentive spirometry. * Increase activity - PT for ambulation. * Taper supplemental oxygen down for saturations greater than 92%. * Continue all supportive care.
[2018-05-17 14:21] VITALS: BP 152/70
[2018-05-17 23:07] VITALS: BP 152/62
[2018-05-18 06:20] VITALS: BP 134/60
--- NOTE | 2018-05-18 07:11 | PN- Housestaff ---
See Addendum Subjective Follow-up For: Acute hypercarbic respiratory failure Presumed MAT on EKG Tele-Events Since Last Visit: No tele events overnight. Subjective: Afebrile overnight. Patient is seen and examined this morning. Patient has been out of bed and ambulating with PT and her daughter. Patient states her right knee pain is a 8 out of 10 mostly from stiffness and usually improves she states with movement. Patient otherwise denies any chest pain, shortness of breath, n/v , diarrhea, and constipation. Review of Systems Constitutional: Reports: see HPI. Objective Last 24 Hrs of Vital Signs/I&O Vital Signs Date Time Temp Pulse Resp B/P B/P Pulse O2 O2 Flow FiO2 Mean Ox Delivery Rate 05/18 0620 97.9 82 16 134/60 94 Nasal 2.0L Cannula 05/17 2307 98.6 95 18 152/62 94 Nasal 2.0L Cannula 05/17 2120 Nasal 2.0L Cannula 05/17 1600 96 Nasal 2.5L Cannula 05/17 1421 98.1 85 20 152/70 95 Room Air 05/17 1326 84 170/77 Intake & Output 05/18 1600 05/18 0800 05/18 0000 Intake Total 100 50 Output Total Balance 100 50 Intake, Oral 100 50 Physical Exam General Appearance: Alert, Oriented X3, Cooperative, No Acute Distress Skin: No Rashes, No Breakdown Skin Temp/Moisture Exam: Warm/Dry HEENT: Atraumatic Neck: Supple Cardiovascular: Regular Rate, Normal S1, Normal S2 Lungs: Clear to Auscultation Abdomen: Soft, No Tenderness Neurological: Normal Speech Extremities: No Edema, Normal Pulses, right knee wrapping s/p surgery Assessment/Plan Assessment: ECHO - Normal size left ventricle. Mild concentric left ventricular hypertrophy. Grossly normal left ventricular systolic function. No obvious regional wall motion abnormalities. Mild left atrial dilatation. Mild mitral regurgitation. Mitral valve thickened. Mild tricuspid regurgitation. Right ventricular systolic pressure estimated to be elevated at 64 mmHg. Trace pulmonic regurgitation. 82-year-old female with past medical history of COPD, diabetes mellitus, hypertension, hyperlipidemia, and severe osteoarthritis postop day 3 elective right total knee arthroplasty with postoperative course complicated by hypercarbic respiratory failure secondary to oversedation initially treated with BiPAP and subsequently intubated for worsening respiratory acidosis and persistent vomiting, then extubated on 05/13/18. She was transferred to the [facility] service after extubation, and then to telemetry on 05/16 for telemetry monitoring #Hypercarbic Respiratory Failure -Patient shifted after right knee arthroplasty status post intubation -He got respiratory depression due to narcotics overdose -She is on 2L oxygen to maintain oxygen saturation 94%; recents saturations at 97% on 05/18 -Tapering Oxygen requirements -Amlodipine 10 mg -Lasix 20 mg daily -X-rays negative for any pulmonary edema -Strict I's and Os -Pulmonology consulted; recommend to complete antibiotic course; Augmentin dose will be completed 05/18 -Patient is POD 7 from Right total knee arthroplasty #H. influenzae pneumonia; -Patient is on oral Augmentin for H. influenzae pneumonia; 7 days of total antibiotic treatment -She having no fever and no leukocytosis currently #Post op Total Knee arthroplasty -Patient postop day 7 total knee arthroplasty -Therapeutic enoxaparin to avoid pulmonary embolism -Ortho assess patient is stable from their viewpoint, stable for discharge at this point #Acute tachycardia -Patient having acute tachycardia heart rate is almost 100 -EKG was suspected for A. fib versus MAT -Patient shifted to telemetry for further management on 05/16 -Eliquis 5 mg bid started #Diabetes Mellitus -She is on insulin sliding scale -Home medication is on hold Code Status: Full code DVT PPx. Problem List: 1. Acute hypercapnic respiratory failure Pain Ratin Pain Location: right knee Pain Goal: Pain 7 or less Pain Plan: prn meds Tomorrow's Labs & Rationales: routine
[2018-05-18 08:11] LABS: ABSOLUTE BASOPHIL COUNT 0 /CUMM (0.0-0.2); ABSOLUTE EOSINOPHIL COUNT 0.1 /CUMM (0.0-0.7); ABSOLUTE GRANULOCYTE CT 3.3 /CUMM (1.4-6.5); ABSOLUTE LYMPH COUNT 0.4 /CUMM (1.2-3.4); ABSOLUTE MONOCYTE COUNT 0.5 /CUMM (0.10-0.60); BASOPHIL % 0.1 % (0.0-2.0); EOSINOPHIL % 2.5 % (0-5); HEMATOCRIT 31.2 % (37-47); MEAN CORPUSCULAR HGB 30.2 PG (27.0-31.0); MEAN CORPUSCULAR VOLUME 91.6 FL (81.0-99.0); MEAN PLATELET VOLUME 9.1 FL (7.4-10.4); RBC DISTRIBUTION WIDTH 14.4 % (11.5-14.5); WHITE BLOOD CELL COUNT 4.3 /CUMM (4.8-10.8)
[2018-05-18 09:22] LABS: GRANULOCYTE % 76.5 % (42.2-75.2); PLATELET COUNT 142 /CUMM (130-400)
--- NOTE | 2018-05-18 14:11 | PN- Orthopedic ---
Surgical Brief Attending Note Brief Attending Note: Comfortable/. Worked with physical therapy earlier and did stairs. Cardiac events noted from the weekend. Vital signs stable currently Incision benign. Calf soft Status post right total knee arthroplasty for end-stage osteoarthritis and severe valgus deformity/flexion contracture Medical/pulmonary/cardiac care. Home discharge when stable enough medically. Patient can be switched to Eliquis for DVT prophylaxis and issues with atrial fibrillation. As per cardiology note
[2018-05-18 14:21] VITALS: BP 138/62
[2018-05-18] MEDS ORDERED: AMLODIPINE BESY10 M1 PO (15:06)
[2018-05-18] MEDS ORDERED: ELIQUIS5 M1 PO (15:06)
[2018-05-18 22:10] VITALS: BP 144/90
[2018-05-19 06:00] VITALS: BP 140/86
--- NOTE | 2018-05-19 06:48 | PN- Housestaff ---
Joshua Jules 05/19/18 0648: Subjective Follow-up For: Acute hypercarbic respiratory failure Presumed MAT on EKG Tele-Events Since Last Visit: SR overnight. Noted PVCs. Subjective: Pt seen and examined this am. Afebrile overnight. On 1L NC, 93% O2 sat with desaturation to the 80s on room air. She has been ambulating with PT with no complains, though noted desaturation while on O2. She offers no other acute complains. Denies chest pain, palpitations, lightheadedness. She is stable for discharge on home oxygen; she would likely benefit from STR however family is adamant she is to return home on discharge. Review of Systems Constitutional: Reports: see HPI. Objective Last 24 Hrs of Vital Signs/I&O Vital Signs Date Time Temp Pulse Resp B/P B/P Pulse O2 O2 Flow FiO2 Mean Ox Delivery Rate 05/19 0802 81 132/70 05/19 0757 93 Nasal 1.0L Cannula 05/19 06 97.4 84 18 140/86 94 Nasal 1.0L Cannula 05/19 0000 Nasal 1.0L Cannula 05/18 2210 98.4 87 20 144/90 90 05/18 1615 95 Nasal 2.0L Cannula 05/18 1421 97.1 83 20 138/62 97 Nasal 2.0L Cannula 05/18 0935 82 134/60 05/18 0843 94 Nasal 2.0L Cannula Intake & Output 05/19 1600 05/19 0800 05/19 0000 Intake Total 120 120 Output Total 400 Balance -280 120 Intake, Oral 120 120 Number 1 Bowel Movements Output, Urine 400 Patient 253 lb Weight Physical Exam General Appearance: Alert, Oriented X3, Cooperative, No Acute Distress HEENT: Atraumatic Neck: Supple Cardiovascular: Regular Rate, Normal S1, Normal S2 Lungs: Clear to Auscultation Abdomen: Normal Bowel Sounds, Soft, No Tenderness Neurological: Normal Speech Extremities: No Edema, Normal Pulses Current Medications: Current Medications Sig/Olivier Start time Last Medication Dose Route Stop Time Status Admin Acetaminophen 1,000 MG Q8P PRN 05/14 0715 AC 05/18 PO 2218 Albuterol Sulfate 3 ML EVERY 4 HRS/AWAKE 05/12 1623 AC 05/19 INH 0755 Amlodipine Besylate 10 MG DAILY 05/18 09 AC 09/25 PO 0802 Amoxicillin/ 875 MG Q12H 05/16 0500 DC 05/18 Clavulanate Potassium PO 05/18 2100 1713 Apixaban 5 MG BID 05/17 1231 AC 05/19 PO 0801 Furosemide 20 MG DAILY 05/13 0900 AC 05/19 PO 0801 Insulin Aspart 0 TIDAC 05/14 0800 AC 05/19 SC 0803 Ketorolac 15 MG Q6-PRN PRN 05/12 0830 AC 05/19 Tromethamine IV 0807 Potassium Chloride 0 .STK-MED ONE 05/18 1720 DC PO Potassium Chloride 40 MEQ ONCE ONE 05/18 1515 DC 05/18 PO 05/18 1516 1717 Trimethobenzamide HCl 200 MG 4 TIMES/DAY PRN 05/11 1545 AC IM Assessment/Plan Assessment: Ms. Rosen is a 82 y/o F with PMH of COPD, DM, HTN, HLD, and severe osteoarthritis postop day 8 elective right total knee arthroplasty with postoperative course complicated by hypercarbic respiratory failure secondary to oversedation initially treated with BiPAP and subsequently intubated for worsening respiratory acidosis and persistent vomiting. She was then extubated on 05/13/18. She was transferred to the [facility] service after extubation, and then to telemetry on 05/16 for telemetry monitoring. She is being followed for the following issues: PROBLEM LIST #Hypercarbic Respiratory Failure. #H. influenzae pneumonia; completed atbs #R Total Knee arthroplasty, POD#8 #Acute tachycardia, resolved #Hypercarbic Respiratory Failure, Resolved Respiratory depression 2/2 oversedation She is on 1L oxygen, being tapered; recents saturations at 94% on 05/19. Desaturation to 83% while ambulating. Lasix 20 mg daily X-rays negative for any pulmonary edema Strict I's and Os Patient is POD 8 from R total knee arthroplasty #H. influenzae pneumonia; Afebrile. Pulmonology consulted; she was treated with unasyn; then transitioned to augmentin, dc'd on 05/18 after completion. # R Total Knee arthroplasty, POD#8 Therapeutic enoxaparin to avoid pulmonary embolism Ortho assessment: patient is stable from their viewpoint, stable for discharge at this point #Acute tachycardia, resolved Patient had sinus tachycardia, NSR since 05/17 EKG was suspected for A. fib versus MAT Patient shifted to telemetry for further management on 05/16 On Eliquis 5 mg bid Amlodipine 10 mg #Diabetes Mellitus She is on insulin sliding scale Home medication is on hold Code Status: Full code DVT PPx. Problem List: 1. Acute hypercapnic respiratory failure Pain Ratin Pain Location: R knee Pain Goal: Pain 4 or less Pain Plan: As indicated Tomorrow's Labs & Rationales: n/a Tete HENAOLenaroe 05/19/18 1045: Attending MD Review Statement Attending Statement Attending MD Statement: examined this patient, discuss w/resident/PA/METALS SALES REPRESENTATIVE, agreed w/resident/PA/METALS SALES REPRESENTATIVE, reviewed EMR data (avail) Attending Assessment/Plan: Patient feels better today. She is breathing comfortably, but did become short of breath when ambulating with PT. Her knee pain is present when walking but controlled. She desaturated to 83% at rest on room air. On 1L she was 91% with ambulation. Plan - Stable for discharge. Recommend STR for continued PT with her knee, but patient and family adamantly refuse and feel she would do better at home. They understand the risks and have someone nearby 17/03 to help. We have educated them about fall risk, particularly with oxygen tubing, and they understand. - Will require oxygen for progression of COPD given desaturation - Home PT - Follow pulmonary and cardiology recommendations with outpatient follow up - Continue home medications
[2018-05-19 07:49] LABS: ABSOLUTE BASOPHIL COUNT 0 /CUMM (0.0-0.2); ABSOLUTE EOSINOPHIL COUNT 0.1 /CUMM (0.0-0.7); ABSOLUTE GRANULOCYTE CT 3.3 /CUMM (1.4-6.5); ABSOLUTE LYMPH COUNT 0.6 /CUMM (1.2-3.4); ABSOLUTE MONOCYTE COUNT 0.4 /CUMM (0.10-0.60); BASOPHIL % 0.4 % (0.0-2.0); EOSINOPHIL % 2.5 % (0-5); GRANULOCYTE % 76.1 % (42.2-75.2); HEMATOCRIT 31.6 % (37-47); MEAN CORPUSCULAR VOLUME 90.9 FL (81.0-99.0); MEAN PLATELET VOLUME 9.1 FL (7.4-10.4); RBC DISTRIBUTION WIDTH 14.5 % (11.5-14.5); RED BLOOD CELL CT 3.48 /CUMM (4.20-5.40); WHITE BLOOD CELL COUNT 4.4 /CUMM (4.8-10.8)
[2018-05-19 08:02] VITALS: BP 132/70
[2018-05-19 09:17] LABS: PLATELET COUNT 144 /CUMM (130-400)
[2018-05-19] MEDS ORDERED: ELIQUIS5 M1 PO (15:06)
== END 2018-05-19 15:27 | disposition home health service (06) | DRG 469 ==
LOC: CRI 00:47 → SDA 00:47 → ENRESERV 11:06 → CANRESERV 11:06 → EDBEDREQ 12:12 → ENRESERV 12:16 → CRI 14:51 → ENTRNSPT 05-14 15:32 → EDTRNSPTSTS 05-14 15:40 → EDTRNSPT 05-14 15:40 → 2NB 05-14 16:00 → CMPTRNSPT 05-14 16:16 → 2NB 05-15 10:35 → 1NO 05-16 18:54 → ENPENDDIS 05-19 13:00 → ENTRNSPT 05-19 15:02 → EDTRNSPT 05-19 15:09 → EDTRNSPTSTS 05-19 15:09 → 1NO 05-19 15:27 → CMPTRNSPT 05-19 15:29
PROVIDERS: General Practice; Hospitalist; Internal Medicine; Preventive Medicine Addiction Medicine; Student in an Organized Health Care Education/Training Program
PROC: 0SRC0J9 Replacement of Right Knee Joint with Synthetic Substitute, Cemented, Open Approach (ICD-10-PCS; principal; 2018-05-11)
PROC: 0BH17EZ Insertion of Endotracheal Airway into Trachea, Via Natural or Artificial Opening (ICD-10-PCS; 2018-05-11)
PROC: 5A1945Z Respiratory Ventilation, 24-96 Consecutive Hours (ICD-10-PCS; 2018-05-11)
PROC: 3E0T3BZ Introduction of Anesthetic Agent into Peripheral Nerves and Plexi, Percutaneous Approach (ICD-10-PCS; 2018-05-11)
PROC: 5A09357 Assistance with Respiratory Ventilation, Less than 24 Consecutive Hours, Continuous Positive Airway Pressure (ICD-10-PCS; 2018-05-11)
DX: M17.11 Unilateral primary osteoarthritis, right knee (principal); J69.0 Pneumonitis due to inhalation of food and vomit; J14 Pneumonia due to Hemophilus influenzae; J96.02 Acute respiratory failure with hypercapnia; E87.2 Acidosis; E66.2 Morbid (severe) obesity with alveolar hypoventilation; M21.061 Valgus deformity, not elsewhere classified, right knee; M24.561 Contracture, right knee; J44.9 Chronic obstructive pulmonary disease, unspecified; E11.9 Type 2 diabetes mellitus without complications; E78.5 Hyperlipidemia, unspecified; R11.10 Vomiting, unspecified; Y92.234 Operating room of hospital as the place of occurrence of the external cause; T40.605A Adverse effect of unspecified narcotics, initial encounter; I11.0 Hypertensive heart disease with heart failure; Y69 Unspecified misadventure during surgical and medical care; Z68.37 Body mass index [BMI] 37.0-37.9, adult; Z88.8 Allergy status to other drugs, medicaments and biological substances; Z87.891 Personal history of nicotine dependence; R00.0 Tachycardia, unspecified; D64.9 Anemia, unspecified; I27.20 Pulmonary hypertension, unspecified; I50.9 Heart failure, unspecified; Y95 Nosocomial condition; B95.61 Methicillin susceptible Staphylococcus aureus infection as the cause of diseases classified elsewhere; T88.59XA Other complications of anesthesia, initial encounter; T41.3X5A Adverse effect of local anesthetics, initial encounter
CPT/HCPCS: 1NSP; 2NBSP; CCU; 36415; 36592; 71045; 81001; 82436; 87040; 87070; 87086; 87147; 88305; 93005; 93010; 93306; 93970; 94799; 97110-GO; 97116-GO; 97161-GP; 97164-GP; 97530-GO; C1713; C9290; J0131; J1100; J1644; J1650; J1815; J1940; J2310; J2405; J3250; J3370; J7040; J7042; J7060